=== PATIENT | male | born 1975 | race Two or more races ===

== ENCOUNTER 2024-05-22 15:11 | Emergency (ER) | payer MEDICAID, SELFPAY ==
[2024-05-22 15:22] VITALS: BP 134/93; PULSE 120; RESP 18; TEMP 37; O2SAT 97; BMI 19.3
--- NOTE | 2024-05-22 15:29 | EKG_ITS ---
[facility] Test Date: 2024-05-22 Pat Name: KALPANA FAIRCHILD Department: Room: - Gender: Male Clay Burner: : 1975 Requested By: Villa Romero (ARETHA) Order Number: [id number] [place] MD: Villa Romero (ARETHA) Measurements Intervals [place] Rate: 119 P: 35 MN: 160 QRS: -29 QRSD: 101 T: 64 QT: 437 QTc: 617 Interpretive Statements SINUS TACHYCARDIA LEFT ATRIAL ENLARGEMENT [-0.15mV P WAVE IN V1/V2] BORDERLINE LEFT AXIS DEVIATION [QRS AXIS < -20] LEFT VENTRICULAR HYPERTROPHY AND ST-T CHANGE [VOLTAGE CRITERIA PLUS ST/T ABNORMALITY] No previous ECG available for comparison /store/S0/[id number].pdf
--- NOTE | 2024-05-22 15:29 | XR_ITS ---
Examination: PA lateral chest 2 views Technique: Upright PA lateral chest 2 views Exam date and time: May 22, 2024 1539 hrs. Comparison April 06, 2024 Indications: Chest pain today Findings: Mild enlargement cardiac contour Pleural parenchymal disease right hemithorax including blunting of the right lateral costophrenic angle No pulmonary edema Intact osseous structures Impression: Improvement in right lung pneumonia Recommend [id number] decubitus film to exclude free flowing right pleural fluid
--- NOTE | 2024-05-22 15:29 | PD.EDRME ---
Rapid Medical Screening Exam RME Arrival date/time: 05/22/24 15:11 49-year-old male presents to the emergency department complaints of cough and shortness of breath patient reports recent chest tube placement Chief Complaint: Flu Like Symptoms Vital signs: Vital Signs Temperature 98.6 F 05/22/24 15:22 Pulse Rate 120 H 05/22/24 15:22 Respiratory Rate 18 05/22/24 15:22 Blood Pressure 134/93 H 05/22/24 15:22 Pulse Oximetry (%) 97 05/22/24 15:22 Oxygen Delivery Method Room Air 05/22/24 15:22
[2024-05-22 15:45] VITALS: PULSE 121
--- NOTE | 2024-05-22 15:45 | PC.NURSE ---
PT HERE WITH C/O COUGH FOR 3 DAYS. PT WITH RECENT SUEGERY AT [facility] ON LUNG. PT WEARING LIFE VEST FOR HEART PROBLEMS.
[2024-05-22 15:55] LABS: Basophils # (Auto) 0.2 Thou/mm3 (0.0-0.2); Basophils % (Auto) 1 % (0-2.5); Eosinophils # (Auto) 0.7 Thou/mm3 (0.0-0.5); Eosinophils % (Auto) 7 % (0-10); Hematocrit 37.1 % (41.0-53.0); Hemoglobin 12.3 g/dL (13.5-16.0); Immature Granulocytes % (Auto) 0 % (0-0); Immature Granulocytes Auto 0.04 Thou/mm3 (0.00-0.00); Lymphocytes % (Auto) 29 % (10-50); Mean Corpuscular HGB Conc 33.2 g/dl (31.0-37.0); Mean Corpuscular Hemoglobin 27.6 pg (25.0-35.0); Mean Corpuscular Volume 83 fL (80-100); Monocytes # (Auto) 1.1 Thou/mm3 (0.0-0.8); Monocytes % (Auto) 10 % (0-12); Neutrophils # (Auto) 5.7 Thou/mm3 (1.8-7.7); Neutrophils % (Auto) 53 % (37-80); Nucleated Red Blood Cell % 0 /100 WBC (0); Platelet Count 367 Thou/mm3 (140-440); RDW Standard Deviation 44.6 fL (35.1-43.9); Red Blood Count 4.46 Miln/mm3 (4.50-5.90); White Blood Count 10.7 Thou/mm3 (3.8-10.6)
--- NOTE | 2024-05-22 15:56 | EDNOTE_ITS ---
ED General RME/HPI General Chief complaint: Flu Like Symptoms Stated complaint: sx on lungs (04/22/24), cough x3 days Time Seen by Provider: 05/22/24 15:48 Arrival date/time: 05/22/24 15:11 Cough HPI ongoing for the past 2 weeks recently discharged from [facility]. Patient recently had a chest tube for empyema. The patient is known to us that is known to admitted to this hospital in March of this year for cholecystitis. The patient is on the LifeVest for decompensated heart failure secondary to polysubstance abuse. Patient denies fever shortness of breath just says he has cough with worsening cough at nighttime points to the base of his throat stating phlegm . Patient denies chest pain or shortness of breath. RME / HPI RME / HPI narrative: 05/22/24 15:11 49-year-old male presents to the emergency department complaints of cough and shortness of breath patient reports recent chest tube placement Related Data Previous Rx's ?Medication ?Instructions ?Recorded guaifenesin 100 mg/5 mL oral liquid 200 mg (10 mL) PO Q4H PRN cough 05/22/24 #500 mL levofloxacin 750 mg tablet 750 mg PO Q24H 7 days #7 tabs 05/22/24 Allergies Allergy/AdvReac Type Severity Reaction Status Date / Time No Known Allergies Allergy Verified 05/22/24 15:13 Review of Systems Review of Systems Narrative Review of Systems: GEN: No fever, no chills, no weight loss EYES: No discharge, no visual changes, no pain HEENT: No ear pain, no congestion, no sore throat PULM: No shortness of breath, + cough, no congestion CV: No chest pain, no dyspnea on exertion, no palpitations GI: No nausea, no vomiting, no diarrhea, no pain, no constipation : No frequency, no urgency, no dysuria MUSC/SKEL: No joint pain, no back pain SKIN: No rash PSYCH: No hallucinations, no depression HEME/LYMPH: No easy bleeding or bruising tendencies NEURO: No weakness, no headache Past Medical History Past Medical History NEUROLOGIC: Negative Neurological Disorders or Seizures CARDIAC: Negative Cardiac Disorders or Congestive Heart Failure RESPIRATORY: Positive Pulmonary Embolism; Negative Chronic Obstructive Pulmonary Disease (COPD) or Asthma GASTROINTESTINAL: Negative Gastrointestinal Disorders GENITOURINARY: Negative Genitourinary Disorders or Renal Disease MUSCULOSKELETAL: Negative Musculoskeletal Disorders ENDOCRINE: Negative Endocrine Disorders, Diabetes Mellitus Type 1 or Diabetes Mellitus Type 2 HEMATOLOGIC: Negative Blood Disorders or Sickle Cell Disease PSYCHO/SOCIAL: Positive Depression and Anxiety OTHER HISTORY: Positive Blood Transfusions; Negative Blood Transfusion Reaction, Anesthesia Reactions or Cancer Family History FAMILY HISTORY: Positive Family Cardiac Disorders (mother had heart attack); Negative Family Respiratory Disorders or Family Gastrointestinal Problems (father had GI problem unknown dx) Social History SMOKING STATUS: Former smoker ED Exam Narrative Physical exam: [General: Cough but not in any acute distress Head normocephalic HEENT: Within acceptable limits Neck is supple nontender Chest equal chest rise nontender to palpation Respiratory: Clear to auscultation no wheezes crackles or rubs CV: LifeVest encasing the chest wall, chest tube sites clean dry and intact. Rate rhythm is regular no murmurs rubs or clicks Abdomen is soft nontender no masses positive bowel sounds all 4 quadrants Back: No CVA tenderness no spinous process tenderness from cervical spine thoracic and lumbar spine Skin: Intact no petechiae rash induration ulceration or crepitus Extremities: Moving all extremity against resistance cap refill less than 2 seconds neurosensory intact Neuro: Awake alert oriented x3 Glascow coma 15 no focal deficits] Course Quality Measures none Orders Category Date Time Status Bedside Influenza A&B Antigen Test NOW Care 05/22/24 15:15 Completed EKG (ED ONLY) *Do not use* NOW Care 05/22/24 15:[address] chest wo con Stat Exams 05/22/24 15:59 Completed EKG (ED Only) Stat Exams 05/22/24 15:29 Draft XR chest 2V Stat Exams 05/22/24 15:29 Completed CBC Stat Lab 05/22/24 15:50 Completed Comprehensive Metabolic Panel Stat Lab 05/22/24 15:50 Completed Drug Screen,Urine Stat Lab 05/22/24 15:56 Ordered Troponin I Stat Lab 05/22/24 15:50 Completed Urinalysis Stat Lab 05/22/24 15:56 Ordered Levofloxacin/D5w 750Mg Ivpb [Levaquin Ivpb] Med 05/22/24 18:09 Active 750 mg in 150 ml IV X1 guaiFENesin/COD SYRUP [Robitussin Ac Syrup] Med 05/22/24 17:07 Discontinued 10 ml PO X1 ONE guaiFENesin/COD SYRUP [Robitussin Ac Syrup] Med 05/22/24 17:54 Discontinued 10 ml PO X1 ONE Vital Signs Vital signs: Vital Signs Temperature 98.6 F 05/22/24 15:22 Pulse Rate 120 H 05/22/24 15:22 Respiratory Rate 18 05/22/24 15:22 Blood Pressure 134/93 H 05/22/24 15:22 Pulse Oximetry (%) 97 05/22/24 15:22 Oxygen Delivery Method Room Air 05/22/24 15:22 [facility] Patient data External records reviewed:: [facility] previous records Clinical information provided by:: patient Social determinants that could affect healthcare access:: none Patient has the following chronic illnesses:: Polysubstance abuse decompensated cardiac output recent empyema with chest tube and drainage. How is presenting disease/condition affected by chronic disease/condition?: e xacerbated by Evaluation data The following diagnostics were reviewed and interpreted by me:: lab results and radiology exam(s) Lab and/or radiology exams considered but not ordered:: CBC shows leukocytosis of 10.7 H&H of 12.3 and 37.1 with platelets of 367 CMP shows sodium 137 potassium 3.7 heart of 101 CO2 of 26.9 BUN of 12 creatinine 0.8 glucose of 104 Unremarkable T. bili transaminases troponin is mildly elevated 0.172.1 reviewed with previous troponins this is not baseline for him. Given the patient's decompensated cardiac failure I suspect this is his baseline. Chest x-ray shows a mild pleural effusion CT of the chest shows the patient has pleural effusion that is not large enough for drainage, in addition to a mild pneumonia and cholelithiasis. Interpretation Summary: Patient has an early pneumonia with cough patient will be given cough medicine and started on antibiotics he is to follow-up with his primary care provider and/or return the emergency room for worsening symptoms. Medications Medications considered but not ordered:: None Medication administrations:: Medication Administration History Levofloxacin/Dextrose (Levaquin Ivpb) 750 mg in 150 mls @ 100 mls/hr IV X1 ONE Stop: 05/22/24 19:38 Discontinued Medications Guaifenesin/Codeine Phosphate (Guaifenesin/Cod Syrup 5 Ml Udc) 10 ml PO X1 ONE; Protocol Stop: 05/22/24 17:08 Last Admin: 05/22/24 17:59 Dose: 10 ml Documented By: [facility] Guaifenesin/Codeine Phosphate (Guaifenesin/Cod Syrup 5 Ml Udc) 10 ml PO X1 ONE; Protocol Stop: 05/22/24 17:55 None Consultations Consultation(s) initiated? (list below): No Diagnosis Differential Diagnosis ED Complaint MDM: Pneumonia pleural effusion empyema Most likely diagnosis given after review of the tests above:: Pneumonia pleural effusion Admission Indicated Admission indicated?: not indicated Explain why admission is indicated or not indicated:: Stable for discharge Admission Request Was there a request for admission?: No Disposition Plan Disposition Plan: Discharge Discharge Attestation Discharge Attestation: The patient and all family members were given an opportunity to ask questions and understood the discharge instructions. Discharge instructions specifically effects, indications for sooner follow up or return to the emergency department, and the expected course of current diagnosis. Patient condition: Stable Medical Decision Making Differential Diagnosis Differential Diagnosis: Pneumonia pleural effusion empyema Lab Data 05/22/24 15:50 05/22/24 15:50 Labs: Lab Results 05/22/24 Range/Units 15:50 WBC 10.7 H (3.8-10.6) Thou/mm3 RBC 4.46 L (4.50-5.90) Miln/mm3 Hgb 12.3 L (13.5-16.0) g/dL Hct 37.1 L (41.0-53.0) % MCV 83 (80-100) fL MCH 27.6 (25.0-35.0) pg MCHC 33.2 (31.0-37.0) g/dl RDW Std Deviation 44.6 H (35.1-43.9) fL Plt Count 367 D (140-440) Thou/mm3 Neut % (Auto) 53 (37-80) % Lymph % (Auto) 29 (10-50) % [place] % (Auto) 10 (0-12) % Eos % (Auto) 7 (0-10) % Baso % (Auto) 1 (0-2.5) % Neut # (Auto) 5.7 (1.8-7.7) Thou/mm3 Lymph # (Auto) 3.0 (1.0-4.8) Thou/mm3 [place] # (Auto) 1.1 H (0.0-0.8) Thou/mm3 Eos # (Auto) 0.7 H (0.0-0.5) Thou/mm3 Baso # (Auto) 0.2 (0.0-0.2) Thou/mm3 Immature Gran # (Auto) 0.04 H (0.00-0.00) Thou/mm3 Absolute Nucleated RBC 0.00 (0.00-0.00) Thou/mm3 Immature Gran % 0 (0-0) % Nucleated RBC % 0 (0) /100 WBC Sodium 137 (136-145) mMol/L Potassium 3.7 (3.4-5.1) mMol/L Chloride 101 (98-107) mMol/L Carbon Dioxide 26.9 (20.0-31.0) mMol/L Anion Gap 9 (7-16) BUN 12 (9-23) mg/dL Creatinine 0.8 (0.6-1.3) mg/dL Estim Creat Clear Calc 92.7 (>60) mL/min eGFR > 60 (60 - ) See Note BUN/Creatinine Ratio 15 (12-20) Ratio Glucose 104 (74-106) mg/dL Calculated Osmolality 273 L (275-295) Calcium 9.6 (8.3-10.6) mg/dL Corrected Calcium 9.6 (8.5-10.1) mg/dL Total Bilirubin 0.6 (0.3-1.2) mg/dL AST 16 (0-34) U/L ALT 19 (10-49) U/L Alkaline Phosphatase 88 (46-116) U/L Troponin I 0.172 H* (0.0-0.045) ng/mL Total Protein 8.3 H (5.7-8.2) gm/dL Albumin 4.6 (3.5-5.0) gm/dL Globulin 3.7 H (2.3-3.5) gm/dL Albumin/Globulin Ratio 1.2 (1.2-2.2) Discharge Plan Plan Patient Disposition: HOME (Self Care) Patient condition on transfer: Stable Prescriptions/Referrals Prescriptions/Med Rec: New guaifenesin 100 mg/5 mL liquid 200 mg PO Q4H PRN (Reason: cough) Qty: 500 0RF levofloxacin 750 mg tablet 750 mg PO Q24H 7 Days Qty: 7 0RF Referrals: No Primary/Family,Physician [Primary Care Provider] - In 1 week Problem List Clinical Impression: Pleural effusion, Elevated troponin, Pneumonia Patient/Caregiver Discharge Instructions Education Materials: ED Pneumonia (Adult), Pleural Effusion Print Language: Hebrew Stand Alone Forms: Shweta Award Info., Patient Portal Info Letter, Work/School Release PA/WILDLIFE CONTROL AGENT Supervising Physician PA/WILDLIFE CONTROL AGENT Supervising Physician: Geovani Morgan ENP
--- NOTE | 2024-05-22 15:59 | XR_ITS ---
Examination: CT chest, without intravenous contrast. Sagittal and coronal 2-D reconstructions. Exam date and time: May 22, 2024 1727 hrs. Comparison April 12, 2024 Marked improvement in the lung chew compared with April 12, 2024 Indications: Chest pain coughing status post surgery on the lungs April 22, 2024, recent chest tube removal for empyema CTDI:vol (mGy) 9.27 DLP: (mGycm) 357 Technique: Multiple 3.0 mm axial sections of the chest to been obtained. Bone and lung density settings are obtained. Sagittal and coronal 2-D reconstructions have been obtained. Low dose protocols were performed. One or more of the following dose reduction techniques were used; automated exposure control, adjustment of the mA and/or KV according to patient size, use of iterative reconstruction technique. Findings: No thoracic aortic aneurysm dilatation Pulmonary artery segments are not enlarged Significant calcification proximal left anterior descending coronary artery 4 mm pulmonary nodule right midlung Marked decrease in size of right empyema compared to the prior study, current thickness of the empyema or residual pleural fluid 10 mm Mild pneumonia right base medially Mild to moderate enlargement cardiac contour No visualized liver or splenic lesion Tiny gallstone image 178 No pancreatic mass Mild perinephric stranding Impression: Significant improvement compared with April 12, 2024 Marked decrease in size of right hemithorax empyema, current thickness or residual pleural fluid 10 mm, too small at this time for placement of a drainage catheter Mild pneumonia right base Cholelithiasis
[2024-05-22 16:16] LABS: Alanine Aminotransferase 19 U/L (10-49); Albumin, Serum 4.6 gm/dL (3.5-5.0); Albumin/Globulin Ratio 1.2 (1.2-2.2); Alkaline Phosphatase 88 U/L (46-116); Anion Gap 9 (7-16); Aspartate Amino Transferase 16 U/L (0-34); BUN/Creatinine Ratio 15 Ratio (12-20); Bilirubin,Total 0.6 mg/dL (0.3-1.2); Blood Urea Nitrogen 12 mg/dL (9-23); Calcium 9.6 mg/dL (8.3-10.6); Calcium (Corrected) 9.6 mg/dL (8.5-10.1); Carbon Dioxide 26.9 mMol/L (20.0-31.0); Chloride 101 mMol/L (98-107); Creatinine (Component) 0.8 mg/dL (0.6-1.3); Estimated Creatinine Clearance 92.7 mL/min (>60); Globulin 3.7 gm/dL (2.3-3.5); Glucose 104 mg/dL (74-106); Osmolality,Calculated 273 (275-295); Potassium 3.7 mMol/L (3.4-5.1); Sodium 137 mMol/L (136-145); Total Protein 8.3 gm/dL (5.7-8.2); eGFR > 60 See Note
[2024-05-22 16:32] LABS: Troponin I 0.172 ng/mL (0.0-0.045)
[2024-05-22 16:51] VITALS: BP 124/88; PULSE 124; RESP 18; TEMP 37; O2SAT 97
--- NOTE | 2024-05-22 17:06 | PC.NURSE ---
pt with c/o headache and cough. Geovani N/P informed
[2024-05-22] MEDS: guaiFENesin/COD SYRUP 5 ML UDC 10 ML PO (17:59)
[2024-05-22 18:07] VITALS: BP 132/66; PULSE 122; RESP 18; O2SAT 98
[2024-05-22] MEDS: LEVOFLOXACIN/D5W 750MG IVPB 750 MG/150 ML BAG 100 MG IV (18:35)
[2024-05-22 18:45] VITALS: TEMP 37.4
--- NOTE | 2024-05-22 20:15 | PC.NURSE ---
ARETHA Olivo aware hr is 120s and has been in the 120s since he came in to the ER, per Geovani ok to discharge.
[2024-05-22 20:20] VITALS: BP 123/83; PULSE 120; RESP 20; TEMP 37; O2SAT 99
== END 2024-05-22 20:20 | disposition home or self-care (01) ==
PROVIDERS: Nurse Practitioner Primary Care; Emergency Provider Emergency Medicine
DX: J90 Pleural effusion, not elsewhere classified (principal); J18.9 Pneumonia, unspecified organism; R79.89 Other specified abnormal findings of blood chemistry
CPT/HCPCS: 36415; 71046; 71250; 80053; 80307; 81001; 84484; 85025; 87400; 93005; 96365; 96366; 99284; J1956; A9270

== ENCOUNTER 2024-06-09 06:23 | Emergency (ER) | payer MEDICAID, SELFPAY ==
--- NOTE | 2024-06-09 06:44 | XR_ITS ---
Examination: PA lateral chest 2 views Technique: Upright PA lateral chest 2 views Exam date and time: June 09, 2024 0651 hrs. Comparison May 22, 2024 Indications: Coughing fever beginning 2 weeks ago Findings: Mild enlargement cardiac contour Prominent vascular congestion Fluid in the fissures on the lateral view Opacity fairly diffusely in the right lung consistent with pneumonia, also pneumonia left base obscuring detail left hemidiaphragm The osseous structures are intact Impression: Diffuse right lung and left base pneumonia Associated heart failure
--- NOTE | 2024-06-09 06:53 | EDNOTE_ITS ---
Upper Respiratory Inf. RME/HPI General Chief Complaint: Flu Like Symptoms Stated Complaint: COUGH, RECENT PROCEDURE ON LUNGS Time Seen by Provider: 06/09/24 06:38 Arrival date/time: 06/09/24 06:23 RME / HPI RME / HPI Narrative: This section includes all my notes and documentations, including HPI, PE, and ED course. Jony Gonzalez MD HPI: 49-year-old male here with about a week history of worsening cough, productive cough, purulent sputum, and dyspnea. No fever or chills. No other complaints. ROS: All negative except as documented in HPI. Physical Exam: General: Alert and oriented. Hacking cough noted. Eyes: Conjunctivae and lids clear. ENT: No nasal congestion. Pharynx normal. TM normal bilaterally. Neck: Supple. Heart: RRR. Lungs: No respiratory distress. Mildly decreased air movement with bilateral rhonchi. Skin: Warm and dry. Neuro: Alert and oriented X 3. I reviewed all diagnostic test results. My interpretation of the chest x-ray is infiltrates. COVID/influenza negative. At this point, diagnoses include pneumonia. Treatment here included prednisone and DuoNeb and two Tylenol #3 and Zithromax and Rocephin. Significant improvement noted. Recommended a trial of outpatient treatment. Based on my best medical judgment, made decision no further evaluation or treatment indicated at this time. Patient understands and agrees to the discharge instructions customized and printed, see below. Discharge instructions from Dr. Gonzalez: --No physical exertion for 3 days to help rest the lungs. No smoking or exposure to smoking or pets or dust or cold or humidity. --Zithromax and cefdinir to kill the germs causing the pneumonia. --Prednisone to help decrease the swelling in the airways. --Albuterol 2 puffs every 4-6 hours for 3 days as needed for cough or shortness of breath. --Tylenol with codeine for severe cough. --See a private doctor on 06/11/2024 for recheck. Ask for help until you are completely better. --Seek immediate medical care with worsening or with any concerns. Jony Gonzalez MD Related Data Previous Rx's ?Medication ?Instructions ?Recorded guaifenesin 100 mg/5 mL oral liquid 200 mg (10 mL) PO Q4H PRN cough 05/22/24 #500 mL acetaminophen 300 mg-codeine 30 mg 2 tab PO TID PRN pain #20 tabs 06/09/24 tablet albuterol sulfate 90 mcg/actuation 2 inh inhalation QID PRN shortness 06/09/24 aerosol inhaler of breath or wheezing #8.5 grams azithromycin 500 mg tablet 500 mg PO QDAY 3 days #3 tabs 06/09/24 (Zithromax TRI-NAVEED) cefdinir 300 mg capsule 300 mg PO BID #14 caps 06/09/24 prednisone 20 mg tablet 40 mg PO DAILY 3 days #6 tabs 06/09/24 Allergies Allergy/AdvReac Type Severity Reaction Status Date / Time No Known Allergies Allergy Verified 05/22/24 15:13 Course Quality Measures none Orders Category Date Time Status Bedside COVID-19 Antigen Test NOW Care 06/09/24 06:45 Active Bedside Influenza A&B Antigen Test NOW Care 06/09/24 06:45 Active XR chest 2V Stat Exams 06/09/24 06:44 Completed ACETAMINOPHEN w/COD 300-30 [Tylenol w/Cod #3] Med 06/09/24 06:44 Discontinued 2 tab PO X1 ONE Albuterol/Ipratr Rt Mervat [Duoneb Rt Mervat] Med 06/09/24 06:44 Discontinued 3 ml INH X1 ONE Azithromycin Po [Zithromax PO] Med 06/09/24 07:33 Discontinued 500 mg PO X1 ONE cefTRIAXone [Rocephin] 1,000 mg Med 06/09/24 07:33 Discontinued Lidocaine 1% 20 ml [Xylocaine 1% 20 ML] 2.1 ml IM X1 predniSONE Med 06/09/24 06:44 Discontinued 60 mg PO X1 ONE Vital Signs Vital signs: Vital Signs Temperature 98.7 F 06/09/24 07:03 Pulse Rate 107 H 06/09/24 07:03 Respiratory Rate 19 06/09/24 07:03 Blood Pressure 118/78 06/09/24 07:03 Pulse Oximetry (%) 96 06/09/24 07:03 Oxygen Delivery Method Room Air 06/09/24 07:03 Upper Respiratory Infection Patient data External records reviewed:: [facility] previous records Clinical information provided by:: patient Social determinants that could affect healthcare access:: none Patient has the following chronic illnesses:: See chart How is presenting disease/condition affected by chronic disease/condition?: exacerbated by Evaluation data The following diagnostics were reviewed and interpreted by me:: lab results and radiology exam(s) Lab and/or radiology exams considered but not ordered:: None Interpretation Summary: Pneumonia Medications / Prescriptions Medications or Prescriptions considered but not ordered:: None Medication administrations:: Medication Administration History Discontinued Medications Acetaminophen/Codeine Phosphate (Acetaminophen W/Cod 300-30 Tablet) 2 tab PO X1 ONE Stop: 06/09/24 06:45 Last Admin: 06/09/24 07:10 Dose: 2 tab Documented By: HELEN Albuterol/Ipratropium (Albuterol/Ipratropium (Duoneb) Rt Mervat 3 Ml Nebu) 3 ml INH X1 ONE Stop: 06/09/24 06:45 Last Admin: 06/09/24 07:04 Dose: 3 ml Documented By: TAYLOR Azithromycin (Azithromycin 250 Mg Tablet) 500 mg PO X1 ONE Stop: 06/09/24 07:34 Ceftriaxone Sodium 1,000 mg/ (Lidocaine HCl 2.1 ml) 0 mg IM X1 ONE Stop: 06/09/24 07:34 Prednisone (Prednisone 20 Mg Tablet) 60 mg PO X1 ONE Stop: 06/09/24 06:45 Last Admin: 06/09/24 07:11 Dose: 60 mg Documented By: HELEN Prednisone and DuoNeb and two Tylenol #3 and Rocephin and Zithromax Consultations Consultation(s) initiated? (list below): No Diagnosis Upper Respiratory Differential Diagnosis: upper respiratory infection, viral infection, bronchitis, influenza and other (Pneumonia, COVID) Most likely diagnosis given after review of the tests above:: Pneumonia Admission Indicated Admission indicated?: not indicated Explain why admission is indicated or not indicated:: Admission criteria not met Admission Request Was there a request for admission?: No Disposition Plan Disposition Plan: Discharge Discharge Attestation Discharge Attestation: The patient and all family members were given an opportunity to ask questions and understood the discharge instructions. Discharge instructions specifically effects, indications for sooner follow up or return to the emergency department, and the expected course of current diagnosis. Patient condition: Stable Discharge Plan Plan Patient Disposition: HOME (Self Care) Prescriptions/Referrals Prescriptions/Med Rec: New prednisone 20 mg tablet 40 mg PO DAILY 3 Days Qty: 6 0RF Taper: Prednisone Taper 20 mg DAILY for 2 Days and 0 Hour 10 mg DAILY for 2 Days and 0 Hour 5 mg DAILY for 7 Days and 0 Hour acetaminophen-codeine 300-30 mg tablet 2 tab PO TID MDD 6 PRN (Reason: pain) Qty: 20 0RF albuterol sulfate 90 mcg/actuation HFA aerosol inhaler 2 inh inhalation QID PRN (Reason: shortness of breath or wheezing) Qty: 8.5 0RF cefdinir 300 mg capsule 300 mg PO BID Qty: 14 0RF azithromycin [Zithromax TRI-NAVEED] 500 mg tablet 500 mg PO QDAY 3 Days Qty: 3 0RF No Action guaifenesin 100 mg/5 mL liquid 200 mg PO Q4H PRN (Reason: cough) Qty: 500 0RF Problem List Clinical Impression: Pneumonia Patient/Caregiver Discharge Instructions Discharge Activity: activity as tolerated Education Materials: ED Pneumonia (Adult) Additional Instructions: Discharge instructions from Dr. Gonzalez: --No physical exertion for 3 days to help rest the lungs. No smoking or exposure to smoking or pets or dust or cold or humidity. --Zithromax and cefdinir to kill the germs causing the pneumonia. --Prednisone to help decrease the swelling in the airways. --Albuterol 2 puffs every 4-6 hours for 3 days as needed for cough or shortness of breath. --Tylenol with codeine for severe cough. --See a private doctor on 06/11/2024 for recheck. Ask for help until you are completely better. --Seek immediate medical care with worsening or with any concerns. Instrucciones de lico del Dr. Gonzalez: --No hacer arjun?n esfuerzo f?sico mingo 3 d?as para ayudar a que los pulmones descansen. --No fumar ni exponerse al humo del tabaco, a las mascotas, al polvo, al fr?o o a la humedad. ---Zithromax y cefdinir para matar los g?rmenes que causan la neumon?a. ---Prednisona para ayudar a disminuir la hinchaz?n de las v?as respiratorias. ---Albuterol 2 inhalaciones cada 4-6 horas mingo 3 d?as seg?n sea necesario para la tos o la falta de aire. ---Tylenol con code?na para la tos intensa. ---Consultar a un m?dico privado el 11/06/2024 para que le darya un nuevo control. ---Solicitar ayuda hasta que se mejore por completo. ---Buscar atenci?n m?dica inmediata si la enfermedad empeora o si tiene alguna inquietud. Print Language: Armenian Stand Alone Forms: Shweta Award Info., Patient Portal Info Letter
[2024-06-09 07:03] VITALS: BP 118/78; PULSE 107; RESP 19; TEMP 37.1; O2SAT 96
[2024-06-09] MEDS: ALBUTEROL/IPRATROPIUM (Duoneb) RT SOL 3 ML NEBU INH (07:04)
[2024-06-09 07:06] VITALS: PULSE 117; RESP 18; O2SAT 98
[2024-06-09] MEDS: ACETAMINOPHEN w/COD 300-30 TABLET 2 TAB PO (07:10)
[2024-06-09] MEDS: predniSONE 20 MG TABLET 60 MG PO (07:11)
[2024-06-09] MEDS: AZITHROMYCIN 250 MG TABLET 500 MG PO (08:02)
[2024-06-09] MEDS: cefTRIAXone 1,000 MG, LIDOCAINE 1% 20 ML 2.1 ML IM (08:04)
== END 2024-06-09 08:09 | disposition home or self-care (01) ==
LOC: SERX 08:06
PROVIDERS: Emergency Provider Emergency Medicine
DX: J18.9 Pneumonia, unspecified organism (principal)
CPT/HCPCS: 71046; 87400; 87811; 94640; 96372; 99283; A9270; J0696; J3490; J7512

== ENCOUNTER 2024-06-16 14:37 | Emergency (ER) | payer MEDICAID, SELFPAY ==
[2024-06-16 14:38] VITALS: BMI 20.8
[2024-06-16 15:01] VITALS: BP 131/84; PULSE 111; RESP 18; TEMP 36.8; O2SAT 97
--- NOTE | 2024-06-16 15:13 | XR_ITS ---
Examination: PA lateral chest 2 views Technique: Upright PA lateral chest 2 views Exam date and time: June 16, 2024 1519 hrs. Indications: Coughing fever chest pain today. Findings: Pneumonia in the right middle lobe and right base Moderate enlargement left ventricle No pulmonary edema The osseous structures are intact Impression: Significant pneumonia right base and right middle lobe
--- NOTE | 2024-06-16 15:13 | EKG_ITS ---
[facility] Test Date: 2024-06-16 Pat Name: KALPANA FAIRCHILD Department: Room: - Gender: Male Database Developer: : 1975 Requested By: Villa Romero (ARETHA) Order Number: [id number] Reading MD: Villa Romero (STATION WORKER) Measurements Intervals [place] Rate: 117 P: 36 CO: 174 QRS: -44 QRSD: 98 T: 79 QT: 362 QTc: 507 Interpretive Statements SINUS TACHYCARDIA LEFT ATRIAL ENLARGEMENT [-0.15mV P WAVE IN V1/V2] MARKED LEFT AXIS DEVIATION [QRS AXIS < -30] POSSIBLE LEFT VENTRICULAR HYPERTROPHY [VOLTAGE CRITERIA PLUS LAE OR QRS WIDENING] POSSIBLE ANTERIOR MYOCARDIAL INFARCTION , OF INDETERMINATE AGE [30 ms Q WAVE IN V3/V4, OR R < 0.2 mV IN V4] Compared to ECG 05/22/2024 15:42:00 Myocardial infarct finding now present ST (T wave) deviation no longer present /store/S0/[id number].pdf
--- NOTE | 2024-06-16 15:34 | PD.EDRME ---
Rapid Medical Screening Exam E Arrival date/time: 06/16/24 14:37 49-year-old male currently on antibiotics for pneumonia presents to the emergency department complains of shortness of breath Chief Complaint: Shortness of Breath/Dyspnea Time Seen by Provider: 06/16/24 15:05 Vital signs: Vital Signs Temperature 98.3 F 06/16/24 15:01 Pulse Rate 111 H 06/16/24 15:01 Respiratory Rate 18 06/16/24 15:01 Blood Pressure 131/84 H 06/16/24 15:01 Pulse Oximetry (%) 97 06/16/24 15:01 Oxygen Delivery Method Room Air 06/16/24 15:01
[2024-06-16 15:38] LABS: Lactate (Lactic Acid) 1.3 mMol/L (0.4-2.0)
[2024-06-16 15:40] LABS: Basophils # (Auto) 0.1 Thou/mm3 (0.0-0.2); Basophils % (Auto) 1 % (0-2.5); Eosinophils # (Auto) 0.3 Thou/mm3 (0.0-0.5); Eosinophils % (Auto) 3 % (0-10); Hematocrit 39.9 % (41.0-53.0); Immature Granulocytes % (Auto) 0 % (0-0); Immature Granulocytes Auto 0.03 Thou/mm3 (0.00-0.00); Lymphocytes # (Auto) 3.4 Thou/mm3 (1.0-4.8); Lymphocytes % (Auto) 33 % (10-50); Mean Corpuscular HGB Conc 32.6 g/dl (31.0-37.0); Mean Corpuscular Hemoglobin 27.1 pg (25.0-35.0); Mean Corpuscular Volume 83 fL (80-100); Monocytes # (Auto) 0.8 Thou/mm3 (0.0-0.8); Monocytes % (Auto) 8 % (0-12); Neutrophils # (Auto) 5.9 Thou/mm3 (1.8-7.7); Neutrophils % (Auto) 56 % (37-80); Nucleated Red Blood Cell % 0 /100 WBC (0); Platelet Count 350 Thou/mm3 (140-440); RDW Standard Deviation 45.2 fL (35.1-43.9); White Blood Count 10.5 Thou/mm3 (3.8-10.6)
[2024-06-16 16:04] LABS: Collection Type, Urine Clean Catch; Squamous Epithelial Cell,Urine 0 /hpf (0-5)
[2024-06-16 16:05] LABS: Alanine Aminotransferase 91 U/L (10-49); Albumin, Serum 4.2 gm/dL (3.5-5.0); Albumin/Globulin Ratio 1.3 (1.2-2.2); Alkaline Phosphatase 83 U/L (46-116); Anion Gap 9 (7-16); Aspartate Amino Transferase 59 U/L (0-34); BUN/Creatinine Ratio 17 Ratio (12-20); Bilirubin,Total 0.9 mg/dL (0.3-1.2); Blood Urea Nitrogen 12 mg/dL (9-23); Calcium 9.4 mg/dL (8.3-10.6); Calcium (Corrected) 9.4 mg/dL (8.5-10.1); Carbon Dioxide 25.2 mMol/L (20.0-31.0); Chloride 102 mMol/L (98-107); Creatinine (Component) 0.7 mg/dL (0.6-1.3); Estimated Creatinine Clearance 104.5 mL/min (>60); Globulin 3.2 gm/dL (2.3-3.5); Glucose 126 mg/dL (74-106); Osmolality,Calculated 273 (275-295); Potassium 4.4 mMol/L (3.4-5.1); Procalcitonin 0.07 ng/ml (0.0-0.49); Sodium 136 mMol/L (136-145); Total Protein 7.4 gm/dL (5.7-8.2); eGFR > 60 See Note
[2024-06-16 16:07] LABS: Troponin I 0.176 ng/mL (0.0-0.045)
[2024-06-16 16:24] LABS: Bilirubin,Urine Negative (Negative); Blood,Urine Negative (Negative); Clarity,Urine Clear (Clear/Hazy); Color,Urine Lt-Yellow (Lt Yel-Yel); Glucose, Urine Negative (Negative); Ketones,Urine Negative (Negative); Leukocyte Esterase,Urine Negative (Negative); Nitrite,Urine Negative (Negative); PH,Urine 6.5 (5.0-7.0); Protein,Urine Trace (Neg - Trace); RBC,Urine 1 /hpf (0-3); Specific Gravity,Urine 1.014 (1.001-1.035); Urobilinogen,Urine Negative mg/dL (0.0-1.0); WBC,Urine 1 /hpf (0-5)
[2024-06-16 16:31] LABS: Amphetamine/Methamp Scrn,U Negative (Negative); Barbiturate Screen,Urine Negative (Negative); Benzodiazepines Screen,Urine Negative (Negative); Benzoylecgonine Screen, Ur Negative (Negative); Fentanyl Screen,Urine Negative (Negative); Opiate Screen,Urine Positive (Negative); THC Screen,Urine Negative (Negative)
[2024-06-16 16:50] LABS: B-Type Natriuretic Peptide 1808 pg/mL (0-100)
--- NOTE | 2024-06-16 17:53 | XR_ITS ---
Examination: CT chest, without intravenous contrast. Sagittal and coronal 2-D reconstructions. Exam date and time: May 2024 1832 hrs. Comparison 12/21/2023 Indications: Shortness of breath coughing beginning one week ago, history right empyema CTDI:vol (mGy) 9.18 DLP: (mGycm) 301 Technique: Multiple 3.0 mm axial sections of the chest to been obtained. Bone and lung density settings are obtained. Sagittal and coronal 2-D reconstructions have been obtained. Low dose protocols were performed. One or more of the following dose reduction techniques were used; automated exposure control, adjustment of the mA and/or KV according to patient size, use of iterative reconstruction technique. Findings: Nonspecific pretracheal high periaortic aortopulmonary window lymph nodes No thoracic aortic aneurysm dilatation Pulmonary artery segments are not enlarged Heavy calcification left anterior descending coronary artery Trace pericardial thickening Mild to moderate enlargement left ventricle left atrium, significant vascular congestion Pneumonia right base Patient's right empyema has not returned Minimal fluid subcapsular to the liver Liver is irregular in contour Gallbladder wall appears thickened Impression: Mild heart failure Right base pneumonia The patient's right empyema has not returned Primary hepatocellular disease Recommend hepatobiliary sonography follow-up to exclude cholecystitis
--- NOTE | 2024-06-16 17:55 | PD.EDSOB ---
ED SOB =RME/HPI General Chief Complaint: Shortness of Breath/Dyspnea Stated Complaint: SOB AND COUGH Time Seen by Provider: 06/16/24 15:05 Arrival date/time: 06/16/24 14:37 RME / HPI RME / HPI Narrative: 49-year-old male patient with significant history of congestive heart failure, currently not on medications, on life vest, history of pleural effusion, history of methamphetamine abuse, came in with family for evaluation regarding worsening shortness of breath. According to the patient's been battling with pneumonia for the last 1 month, already finished antibiotic given by PCP, and was seen here also last week and was diagnosed with pneumonia. Patient was sent home on antibiotic for 3 days. Today patient noticed worsening shortness of breath, and pain to the right chest. Patient also complained of swelling to the leg. Currently patient is not taking any water pill, I stopped taking Lasix or more than a month now. Patient is denying any fever. Denies any other complaints no medications taken prior to arrival. Related Data Previous Rx's ?Medication ?Instructions ?Recorded guaifenesin 100 mg/5 mL oral liquid 200 mg (10 mL) PO Q4H PRN cough 05/22/24 #500 mL acetaminophen 300 mg-codeine 30 mg 2 tab PO TID PRN pain #20 tabs 06/09/24 tablet albuterol sulfate 90 mcg/actuation 2 inh inhalation QID PRN shortness 06/09/24 aerosol inhaler of breath or wheezing #8.5 grams cefdinir 300 mg capsule 300 mg PO BID #14 caps 06/09/24 furosemide 20 mg tablet (Lasix) 20 mg PO QDAY #14 tabs 06/16/24 oseltamivir 75 mg capsule (Tamiflu) 75 mg PO BID 5 days #10 caps 06/16/24 Allergies Allergy/AdvReac Type Severity Reaction Status Date / Time No Known Allergies Allergy Verified 06/16/24 14:38 Review of Systems Review of Systems Narrative Review of Systems: Review of system reviewed and within normal limits except mentioned in HPI ED Exam Narrative Physical exam: VITAL SIGNS: Reviewed. GENERAL APPEARANCE: Alert and interactive, follows commands, no acute distress, HEAD AND FACE: Non-traumatic. ENT: PERRL, pink conjunctivitis, eyelid no trauma, Mucous membrane moist. NECK: Supple, nontender, no nuchal rigidity. CHEST: No tenderness, no crepitus, no paradoxical movement, no retractions. LUNGS: Symmetric, bibasal rales, no wheezing, no ronchi, no stridor, decreased breath sounds bilaterally. On a LifeVest HEART: Regular rate, regular rhythm, no murmur, no gallops. ABDOMEN: Soft, positive bowel sounds, nondistended, no guarding, nontender, no rebound, no masses, RECTAL: Deferred. GENITAL: Deferred. NEUROLOGICAL: Gross motor function intact sensory function intact, Appropriate for age. MUSCULOSKELETAL: low back nontender, full range of motion. EXTREMITIES: Bilateral lower leg edema +2, full range of motion. SKIN: Color pink, dry, no rash, no lacerations, no abrasions, no contusions. LYMPHATICS: Deferred. Course Quality Measures none Orders Category Date Time Status Bedside COVID-19 Antigen Test NOW Care 06/16/24 15:13 Active Bedside Influenza A&B Antigen Test NOW Care 06/16/24 15:13 Completed EKG (ED ONLY) *Do not use* NOW Care 06/16/24 15:14 Completed Insert IV NOW Care 06/16/24 17:[address] chest wo con Stat Exams 06/16/24 17:53 Completed EKG (ED Only) Stat Exams 06/16/24 15:13 Draft XR chest 2V Stat Exams 06/16/24 15:13 Completed BNP [B-Type Natriuretic Peptide] Stat Lab 06/16/24 15:28 Completed Blood Culture (Lab) Stat Lab 06/16/24 15:28 Received CBC Stat Lab 06/16/24 15:28 Completed Comprehensive Metabolic Panel Stat Lab 06/16/24 15:28 Completed Drug Screen,Urine Stat Lab 06/16/24 15:46 Completed Lactate (Lactic Acid) Stat Lab 06/16/24 15:28 Completed Procalcitonin Stat Lab 06/16/24 15:28 Completed Troponin I Stat Lab 06/16/24 15:28 Completed Troponin I Stat Lab 06/16/24 18:03 Completed Urinalysis Stat Lab 06/16/24 15:46 Completed Furosemide Inj [Lasix Inj] Med 06/16/24 17:53 Discontinued 40 mg IVP X1 ONE Oseltamivir [Tamiflu] Med 06/16/24 17:53 Discontinued 75 mg PO X1 ONE Vital Signs Vital signs: Vital Signs Temperature 98.3 F 06/16/24 15:01 Pulse Rate 111 H 06/16/24 15:01 Respiratory Rate 18 06/16/24 15:01 Blood Pressure 131/84 H 06/16/24 15:01 Pulse Oximetry (%) 97 06/16/24 15:01 Oxygen Delivery Method Room Air 06/16/24 15:01 Shortness of Breath / Dyspnea [facility] Narrative [facility] Narrative:: 49-year-old male patient with significant history of congestive heart failure, currently not on medications, on life vest, history of pleural effusion, history of methamphetamine abuse, came in with family for evaluation regarding worsening shortness of breath. According to the patient's been battling with pneumonia for the last 1 month, already finished antibiotic given by PCP, and was seen here also last week and was diagnosed with pneumonia. Patient was sent home on antibiotic for 3 days. Today patient noticed worsening shortness of breath, and pain to the right chest. Patient also complained of swelling to the leg. Currently patient is not taking any water pill, I stopped taking Lasix or more than a month now. Patient is denying any fever. Denies any other complaints no medications taken prior to arrival. Laboratory workup is significant for troponin 0.172 which is slightly lower from the previous 1 repeat troponin also remained the same. 3 hours ago. Patient's BNP was noted to be 1808. Chest x-ray showed Significant pneumonia right base and right middle lobe CT scan of the chest showed Mild heart failure Right base pneumonia The patient's right empyema has not returned Primary hepatocellular disease Recommend hepatobiliary sonography follow-up to exclude cholecystitis Patient tested positive for influenza. Patient received Lasix and Tamiflu in the emergency room. Case discussed with hospitalist, Dr. Salgado, who examined the patient in the emergency room, and told me that patient is okay to be discharged home and follow-up closely with thoracic surgeon outpatient. Patient data External records reviewed:: None Clinical information provided by:: patient Social determinants that could affect healthcare access:: none Patient has the following chronic illnesses:: History of congestive heart failure, history of recent pneumonia How is presenting disease/condition affected by chronic disease/condition?: exacerbated by Evaluation data The following diagnostics were reviewed and interpreted by me:: lab results, radiology exam(s) and EKG tracing(s) Lab and/or radiology exams considered but not ordered:: None Interpretation Summary: See above in MDM Medications / Prescriptions Medications or Prescriptions considered but not ordered:: None Medication administrations:: Medication Administration History Discontinued Medications Furosemide (Furosemide Inj 10 Mg/Ml 4ml Vial) 40 mg IVP X1 ONE Stop: 06/16/24 17:54 Last Admin: 06/16/24 18:23 Dose: 40 mg Documented By: GIOVANNY Oseltamivir Phosphate (Oseltamivir 75 Mg Capsule) 75 mg PO X1 ONE Stop: 06/16/24 17:54 Last Admin: 06/16/24 18:23 Dose: 75 mg Documented By: GIOVANNY Tamiflu and Lasix Consultations Consultation(s) initiated? (list below): No Diagnosis Shortness of Breath Differential Diagnosis: acute exacerbation of chronic obstructive airways disease, congestive heart failure and community acquired pneumonia Most likely diagnosis given after review of the tests above:: Influenza, history of congestive heart failure Admission Indicated Admission indicated?: not indicated Explain why admission is indicated or not indicated:: Stable Admission Request Was there a request for admission?: No Disposition Plan Disposition Plan: Discharge Discharge Attestation Discharge Attestation: The patient and all family members were given an opportunity to ask questions and understood the discharge instructions. Discharge instructions specifically effects, indications for sooner follow up or return to the emergency department, and the expected course of current diagnosis. Patient condition: Stable Discharge Plan Plan Patient Disposition: HOME (Self Care) Disposition Comment: stable Prescriptions/Referrals Prescriptions/Med Rec: New oseltamivir [Tamiflu] 75 mg capsule 75 mg PO BID 5 Days Qty: 10 0RF furosemide [Lasix] 20 mg tablet 20 mg PO QDAY Qty: 14 0RF No Action guaifenesin 100 mg/5 mL liquid 200 mg PO Q4H PRN (Reason: cough) Qty: 500 0RF acetaminophen-codeine 300-30 mg tablet 2 tab PO TID MDD 6 PRN (Reason: pain) Qty: 20 0RF albuterol sulfate 90 mcg/actuation HFA aerosol inhaler 2 inh inhalation QID PRN (Reason: shortness of breath or wheezing) Qty: 8.5 0RF cefdinir 300 mg capsule 300 mg PO BID Qty: 14 0RF Referrals: Justin Millan MD [Primary Care Provider] - In 1 week Problem List Clinical Impression: Influenza A, Congestive heart failure Patient/Caregiver Discharge Instructions Discharge Activity: activity as tolerated Education Materials: ED Influenza (Adult) Additional Instructions: Thank you for the opportunity for serving you today. You are stable for discharged . You are advised to: Follow-up with your PCP in 1 to 2 days and ask for referral to your thoracic surgeon Return to ED for worsening of symptoms Take medication as prescribed Print Language: Kinyarwanda Stand Alone Forms: Shweta Award Info., Patient Portal Info Letter
[2024-06-16 18:17] VITALS: BP 139/102; PULSE 117; RESP 18; TEMP 36.8; O2SAT 96
[2024-06-16 18:23] VITALS: BP 139/102; PULSE 116
[2024-06-16] MEDS: OSELTAMIVIR 75 MG CAPSULE PO (18:23)
[2024-06-16] MEDS: FUROSEMIDE INJ 10 MG/ML 4ML VIAL 40 MG IVP (18:23)
[2024-06-16 18:38] LABS: Troponin I 0.172 ng/mL (0.0-0.045)
[2024-06-16 20:00] VITALS: BP 130/102; PULSE 118; RESP 18; TEMP 36.7; O2SAT 99
== END 2024-06-16 20:46 | disposition home or self-care (01) ==
PROVIDERS: Nurse Practitioner Family; Nurse Practitioner Primary Care; Emergency Provider Emergency Medicine; PCP Family Medicine
DX: J10.1 Influenza due to other identified influenza virus with other respiratory manifestations (principal); I50.9 Heart failure, unspecified
CPT/HCPCS: 36415; 71046; 71250; 80053; 80307; 81001; 83605; 83880; 84145; 84484; 85025; 87040; 87400; 87811; 93005; 96374; 99284; J1940; A9270

== ENCOUNTER 2025-01-17 14:26 | Inpatient (IN) | payer MEDICAID, SELFPAY ==
[2025-01-17 14:39] VITALS: BP 121/82; PULSE 120; RESP 26; TEMP 36.5; O2SAT 100
--- NOTE | 2025-01-17 14:46 | EKG_ITS ---
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: : 1975 Requested By: Villa Romero (ARETHA) Order Number: [id number] Reading MD: Villa Romero (LEGAL RECRUITER) Measurements Intervals [place] Rate: 125 P: 38 GA: 170 QRS: -48 QRSD: 95 T: 60 QT: 387 QTc: 559 Interpretive Statements SINUS TACHYCARDIA PATTERN CONSISTENT WITH PULMONARY DISEASE LEFT ANTERIOR FASCICULAR BLOCK [QRS AXIS <= -45, QR IN I, RS IN II] LEFT VENTRICULAR HYPERTROPHY AND ST-T CHANGE [VOLTAGE CRITERIA PLUS ST/T ABNORMALITY] Compared to ECG 06/16/2024 15:37:46 Left anterior fascicular block now present ST (T wave) deviation now present Atrial abnormality no longer present Left-axis deviation no longer present Myocardial infarct finding no longer present /store/S0/[id number].pdf
--- NOTE | 2025-01-17 14:51 | XR_ITS ---
Examination: AP lateral chest 2 views TECHNIQUE: Sitting portable AP lateral chest 2 views INDICATIONS: Chest pain shortness of breath today. FINDINGS: Moderate enlargement left ventricle Prominent vascular congestion. Early septal pulmonary edema and fluid in the fissures on the lateral view IMPRESSION: Early heart failure
--- NOTE | 2025-01-17 14:51 | XR_ITS ---
Examination: CT abdomen and pelvis without contrast. Coronal 3-D reconstructions. Sagittal 2-D reconstructions. Date and time of exam:January 17, 2025, 1734 hours Comparison April 09, 2024. INDICATIONS: Generalized abdominal pain and bloating today CTDI: vol (mGy): 5.97 DLP: (mGycm): 349 Technique: Axial images of the abdomen have been obtained, 3 mm slice thickness Intravenous contrast material has not been administered. Low dose protocols were performed. One or more of the following dose reduction techniques were used; automated exposure control, adjustment of the mA and/or KV according to patient size, use of iterative reconstruction technique. Findings: Moderate enlargement cardiac contour with significant vascular congestion and small bilateral pleural effusions Cirrhosis, liver nodular in contour with mild to moderate ascites Gallbladder wall is thickened but this may be secondary to the patient's ascites No pancreatic mass No hydronephrosis Aorta normal size No bowel obstruction Normal-appearing appendix No diverticulitis Urinary bladder wall shows thickening to 7 mm Fluid in a left inguinal hernia Advanced disc narrowing at the lower 3 lumbar levels IMPRESSION: Moderate enlargement cardiac contour with mild heart failure pattern Cirrhosis [id number] ascites Gallbladder wall is thickened but this may be secondary to the patient's ascites, recommend HIDA scan follow-up as clinically warranted Cystitis pattern
--- NOTE | 2025-01-17 14:52 | PD.EDRME ---
Rapid Medical Screening Exam RME Arrival date/time: 01/17/25 14:26 49-year-old male presents to the emergency department for complaints of abdominal pain Chief Complaint: Abdominal Pain Time Seen by Provider: 01/17/25 14:58 Vital signs: Vital Signs Temperature 97.7 F 01/17/25 14:39 Pulse Rate 120 H 01/17/25 14:39 Respiratory Rate 26 H 01/17/25 14:39 Blood Pressure 121/82 01/17/25 14:39 Pulse Oximetry (%) 100 01/17/25 14:39 Oxygen Delivery Method Room Air 01/17/25 14:39
[2025-01-17 15:17] LABS: Basophils # (Auto) 0.1 Thou/mm3 (0.0-0.2); Basophils % (Auto) 1 % (0-2.5); Eosinophils # (Auto) 0.3 Thou/mm3 (0.0-0.5); Eosinophils % (Auto) 2 % (0-10); Hematocrit 47.9 % (41.0-53.0); Hemoglobin 15.9 g/dL (13.5-16.0); Immature Granulocytes Auto 0.02 Thou/mm3 (0.00-0.00); Lymphocytes # (Auto) 4.4 Thou/mm3 (1.0-4.8); Lymphocytes % (Auto) 38 % (10-50); Mean Corpuscular HGB Conc 33.2 g/dl (31.0-37.0); Mean Corpuscular Hemoglobin 30.2 pg (25.0-35.0); Mean Corpuscular Volume 91 fL (80-100); Monocytes # (Auto) 1.3 Thou/mm3 (0.0-0.8); Monocytes % (Auto) 11 % (0-12); Neutrophils # (Auto) 5.4 Thou/mm3 (1.8-7.7); Neutrophils % (Auto) 47 % (37-80); Nucleated Red Blood Cell # 0.00 Thou/mm3 (0.00-0.00); Nucleated Red Blood Cell % 0 /100 WBC (0); Platelet Count 315 Thou/mm3 (140-440); RDW Standard Deviation 53.7 fL (35.1-43.9); Red Blood Count 5.26 Miln/mm3 (4.50-5.90); White Blood Count 11.5 Thou/mm3 (3.8-10.6)
[2025-01-17 15:29] LABS: INR 1.6 (0.9-1.3); Partial Thromboplastin Time 26.5 Seconds (22.0-36.0); Prothrombin Time 16.7 Seconds (9.0-12.2)
[2025-01-17 15:32] LABS: B-Type Natriuretic Peptide 2913 pg/mL (0-100)
[2025-01-17 15:36] LABS: Alanine Aminotransferase 457 U/L (10-49); Albumin, Serum 3.7 gm/dL (3.5-5.0); Albumin/Globulin Ratio 1.3 (1.2-2.2); Alcohol, Blood Medical < 3.0 mg/dL (0-10.0); Alkaline Phosphatase 95 U/L (46-116); Anion Gap 12 (7-16); Aspartate Amino Transferase 464 U/L (0-34); BUN/Creatinine Ratio 13 Ratio (12-20); Bilirubin,Total 2.9 mg/dL (0.3-1.2); Blood Urea Nitrogen 15 mg/dL (9-23); Calcium 9.1 mg/dL (8.3-10.6); Calcium (Corrected) 9.3 mg/dL (8.5-10.1); Carbon Dioxide 22.5 mMol/L (20.0-31.0); Chloride 102 mMol/L (98-107); Creatinine (Component) 1.2 mg/dL (0.6-1.3); Estimated Creatinine Clearance 62.4 mL/min (>60); Globulin 2.8 gm/dL (2.3-3.5); Glucose 139 mg/dL (74-106); Lipase 31 U/L (12-53); Magnesium 1.7 mg/dL (1.6-2.6); Osmolality,Calculated 274 (275-295); Potassium 3.9 mMol/L (3.4-5.1); Sodium 136 mMol/L (136-145); Total Protein 6.5 gm/dL (5.7-8.2); eGFR > 60 See Note
[2025-01-17 15:40] LABS: Troponin I 0.581 ng/mL (0.0-0.045)
--- NOTE | 2025-01-17 16:04 | PD.EDABDPN ---
ED Abdominal Pain RME/HPI General Chief Complaint: Abdominal Pain Stated complaint: ABD. PAIN AND BLOATING Time seen by provider: 01/17/25 14:58 Arrival date/time: 01/17/25 14:26 Limitations: no limitations RME / HPI RME / HPI narrative: 01/17/25 14:26 49-year-old male presents to the emergency department for complaints of abdominal pain DR. RICHI TRAN ED EVALUATION: 49-year-old male presents to the Emergency Department with abdominal swelling for the past week, associated with nausea but no vomiting or diarrhea. He also reports dysuria. Social history is significant for heavy alcohol consumption, approximately 1?2 caguamas (32 oz beer bottles) per day, with last intake 2?3 days ago. Past medical history includes lung surgery for an infection requiring fluid removal. No history of myocardial infarction and no known allergies. Related Data Previous Rx's ?Medication ?Instructions ?Recorded guaifenesin 100 mg/5 mL oral liquid 200 mg (10 mL) PO Q4H PRN cough 05/22/24 #500 mL acetaminophen 300 mg-codeine 30 mg 2 tab PO TID PRN pain #20 tabs 06/09/24 tablet albuterol sulfate 90 mcg/actuation 2 inh inhalation QID PRN shortness 06/09/24 aerosol inhaler of breath or wheezing #8.5 grams cefdinir 300 mg capsule 300 mg PO BID #14 caps 06/09/24 furosemide 20 mg tablet (Lasix) 20 mg PO QDAY #14 tabs 06/16/24 Allergies Allergy/AdvReac Type Severity Reaction Status Date / Time No Known Allergies Allergy Verified 01/17/25 14:29 Review of Systems Review of Systems Systems Reviewed: All systems reviewed, normal except as documented Past Medical History Past Medical History CARDIAC: Positive Cardiac Disorders (Pt has on a wearable cardioverter defibrillator) RESPIRATORY: Positive Pulmonary Embolism PSYCHO/SOCIAL: Positive Depression and Anxiety OTHER HISTORY: Positive Blood Transfusions Family History FAMILY HISTORY: Positive Family Cardiac Disorders Social History SMOKING STATUS: Never smoker SUBSTANCE USE: does not use ALCOHOL: Never ED Exam General Limitations: Present no limitations General appearance: Present alert, in no apparent distress and other (chronically ill with acute decompensation) Head Head exam: Present atraumatic, normocephalic and normal inspection Eye Eye exam: Present normal appearance, PERRL and EOMI ENT ENT exam: Present normal exam, normal oropharynx and mucous membranes moist Neck Neck exam: Present normal inspection, full ROM and trachea midline Chest Chest inspection: Present normal inspection and symmetric chest wall rise Respiratory Respiratory exam: Present normal lung sounds bilaterally Cardiovascular Cardiovascular exam: Present regular rate, normal rhythm and normal heart sounds Abdominal Exam Abdominal exam: Present normal bowel sounds and other (firm abdomen) Extremities Exam Extremities exam: Present normal inspection and full ROM Back Exam Back exam: Present normal inspection and full ROM Neurological Exam Neurological exam: Present alert, oriented X3 and CN II-XII intact Psychiatric Psychiatric exam: Present normal affect and normal mood Skin Skin exam: Present warm, dry, intact and normal color Course Quality Measures none Orders Category Date Time Status EKG (ED ONLY) *Do not use* NOW Care 01/17/25 14:[address] abdomen pelvis wo con Stat Exams 01/17/25 14:51 Completed EKG (ED Only) Stat Exams 01/17/25 14:46 Draft US abdomen limited Stat Exams 01/17/25 16:06 Completed XR chest 2V Stat Exams 01/17/25 14:51 Completed Alcohol, Blood Medical Stat Lab 01/17/25 15:02 Completed B-Type Natriuretic Peptide Stat Lab 01/17/25 15:02 Completed CBC Stat Lab 01/17/25 15:02 Completed Comprehensive Metabolic Panel Stat Lab 01/17/25 15:02 Completed Drug Screen,Urine Stat Lab 01/17/25 16:56 Completed Lipase Stat Lab 01/17/25 15:02 Completed Magnesium Stat Lab 01/17/25 15:02 Completed Partial Thromboplastin Time Stat Lab 01/17/25 15:02 Completed Prothrombin Time with INR Stat Lab 01/17/25 15:02 Completed Troponin I Stat Lab 01/17/25 15:02 Completed Urinalysis, C/S if Indicated Stat Lab 01/17/25 16:56 Completed Vital Signs Vital signs: Vital Signs Temperature 97.7 F 01/17/25 14:39 Pulse Rate 120 H 01/17/25 14:39 Respiratory Rate 26 H 01/17/25 14:39 Blood Pressure 121/82 01/17/25 14:39 Pulse Oximetry (%) 100 01/17/25 14:39 Oxygen Delivery Method Room Air 01/17/25 14:39 Abdominal Pain MDM MDM Narrative MDM Narrative:: I, Lissa Sousa am scribing for and in the presence of Dr. Jones. Patient is a 49-year-old male is in the emergency department concerns for abdominal pain. Vital signs and exam as listed. Prior provider evaluated patient ordered labs, chest x-ray EKG. Also offered medication for symptom relief. Labs with leukocytosis 11.5, no left shift, hemoglobin normal, no thrombocytosis, no acute electrolyte abnormality, kidney function normal, patient with a T. bili of 2.9, AST 464, ALT 457, alk phos normal troponin 0.58, BNP 2913. EKG sinus tachycardia, nonspecific T wave changes. Chest x-ray without evidence of congestion concerning for heart failure. On my evaluation patient hemodynamically stable not in distress abdomen is firm. At this time my shift is over and I have transitioned care to oncoming provider Dr. Gonzalez. Patient is pending results of his workup and safe dispo. Patient data External records reviewed:: [facility] previous records Clinical information provided by:: patient Social determinants that could affect healthcare access:: alcohol use Patient has the following chronic illnesses:: Social history is significant for heavy alcohol consumption, approximately 1?2 caguamas (32 oz beer bottles) per day, with last intake 2?3 days ago. Past medical history includes lung surgery for an infection requiring fluid removal. No history of myocardial infarction and no known allergies. How is presenting disease/condition affected by chronic disease/condition?: exacerbated by Evaluation data The following diagnostics were reviewed and interpreted by me:: lab results, radiology exam(s) and EKG tracing(s) (My interpretation: EKG performed at 1449 hours, sinus tachycardia, rate 125, prolonged QTc 559, non specific ST-T wave changes, no cardiac alert) Lab and/or radiology exams considered but not ordered:: none Interpretation Summary: Procedure(s): XR chest 2V Accession Number(s): [id number] cc: Heather (ARETHA),[place] CARIAS; Andrea Henson MD~ Examination: AP lateral chest 2 views TECHNIQUE: Sitting portable AP lateral chest 2 views INDICATIONS: Chest pain shortness of breath today. FINDINGS: Moderate enlargement left ventricle Prominent vascular congestion. Early septal pulmonary edema and fluid in the fissures on the lateral view IMPRESSION: Early heart failure Dictated By: Andrea Henson MD Procedure(s): CT abdomen pelvis wo [facility] Accession Number(s): [id number] cc: Heather (ARETHA),[place] CARIAS; Andrea Henson MD; Ashu Holcomb MD~ Examination: CT abdomen and pelvis without contrast. Coronal 3-D reconstructions. Sagittal 2-D reconstructions. Date and time of exam:January 17, 2025, 1734 hours Comparison April 09, 2024. INDICATIONS: Generalized abdominal pain and bloating today CTDI: vol (mGy): 5.97 DLP: (mGycm): 349 Technique: Axial images of the abdomen have been obtained, 3 mm slice thickness Intravenous contrast material has not been administered. Low dose protocols were performed. One or more of the following dose reduction techniques were used; automated exposure control, adjustment of the mA and/or KV according to patient size, use of iterative reconstruction technique. Findings: Moderate enlargement cardiac contour with significant vascular congestion and small bilateral pleural effusions Cirrhosis, liver nodular in contour with mild to moderate ascites Gallbladder wall is thickened but this may be secondary to the patient's ascites No pancreatic mass No hydronephrosis Aorta normal size No bowel obstruction Normal-appearing appendix No diverticulitis Urinary bladder wall shows thickening to 7 mm Fluid in a left inguinal hernia Advanced disc narrowing at the lower 3 lumbar levels IMPRESSION: Moderate enlargement cardiac contour with mild heart failure pattern Cirrhosis Ldgg-so-jmgkukxo ascites Gallbladder wall is thickened but this may be secondary to the patient's ascites, recommend HIDA scan follow-up as clinically warranted Cystitis pattern Dictated By: Andrea Henson MD Procedure(s): US abdomen limited Accession Number(s): [id number] cc: Andrea Henson MD; Jennifer Jones MD~ Examination: Abdomen sonogram, Limited Date and time of exam: January 17, 2025, 1627 hours INDICATIONS: Elevated liver function tests on laboratory examination today, with abdominal pain Technique: Real-time briceno scale transabdominal sonographic images of the upper abdomen obtained. Findings: Negative for gallstones Gallbladder wall is abnormally thickened 0.98 cm Common bile duct 0.3 cm Pancreatic head 2.4 cm Liver 15.2 cm fatty infiltration lobular contour mild free fluid adjacent to the right lobe of the liver Normal hepatopedal portal venous flow Patent IVC IMPRESSION: Abnormally thickened gallbladder wall, consider HIDA scan or MRCP follow-up to exclude cholecystitis Dictated By: Andrea Henson MD Medications / Prescriptions Medications or Prescriptions considered but not ordered:: see above Medication administrations:: see above if any Consultations Consultation(s) initiated? (list below): No Diagnosis Differential diagnosis abdominal pain: other (Alcoholic liver disease with ascites, spontaneous bacterial peritonitis, UTI) Most likely diagnosis given after review of the tests above:: CHF exacerbation, abdominal pain Admission Indicated Admission indicated?: not indicated Explain why admission is indicated or not indicated:: Workup not completed Admission Request Was there a request for admission?: No Disposition Plan Disposition Plan: other (specify) (Signed out) Discharge Plan Prescriptions/Referrals Prescriptions/Med Rec: No Action guaifenesin 100 mg/5 mL liquid 200 mg PO Q4H PRN (Reason: cough) Qty: 500 0RF acetaminophen-codeine 300-30 mg tablet 2 tab PO TID MDD 6 PRN (Reason: pain) Qty: 20 0RF albuterol sulfate 90 mcg/actuation HFA aerosol inhaler 2 inh inhalation QID PRN (Reason: shortness of breath or wheezing) Qty: 8.5 0RF cefdinir 300 mg capsule 300 mg PO BID Qty: 14 0RF furosemide [Lasix] 20 mg tablet 20 mg PO QDAY Qty: 14 0RF Referrals: Ashu Holcomb MD [Primary Care Provider] - In 1 week Problem List Clinical Impression: CHF exacerbation, Abdominal pain Patient/Caregiver Discharge Instructions Print Language: Martiniquais
[2025-01-17 17:08] LABS: Collection Type, Urine Clean Catch
[2025-01-17 17:50] LABS: Bacteria,Urine Rare; Bilirubin,Urine 1+ (Negative); Blood,Urine Negative (Negative); Color,Urine Drk-Yellow (Lt Yel-Yel); Culture Indicated,Urine Not Indicated; Glucose, Urine Negative (Negative); Hyaline Casts,Urine 1 /hpf (0-1); Ketones,Urine Negative (Negative); Leukocyte Esterase,Urine Negative (Negative); Nitrite,Urine Negative (Negative); PH,Urine 6.0 (5.0-7.0); Protein,Urine 2+ (Neg - Trace); RBC,Urine 1 /hpf (0-3); Specific Gravity,Urine 1.028 (1.001-1.035); Squamous Epithelial Cell,Urine 1 /hpf (0-5); Urobilinogen,Urine 6.0 mg/dL (0.0-1.0); WBC,Urine 4 /hpf (0-5)
[2025-01-17 17:51] LABS: Amphetamine/Methamp Scrn,U Positive (Negative); Barbiturate Screen,Urine Negative (Negative); Benzodiazepines Screen,Urine Negative (Negative); Benzoylecgonine Screen, Ur Negative (Negative); Fentanyl Screen,Urine Negative (Negative); Opiate Screen,Urine Negative (Negative); THC Screen,Urine Negative (Negative)
[2025-01-17 18:02] LABS: Clarity,Urine Hazy (Clear/Hazy)
[2025-01-17 20:24] VITALS: BP 117/90; PULSE 113; RESP 16; TEMP 37.8; O2SAT 99
--- NOTE | 2025-01-17 21:00 | PD.EDABDPN ---
ED Abdominal Pain RME/HPI General Chief Complaint: Abdominal Pain Stated complaint: ABD. PAIN AND BLOATING Time seen by provider: 01/17/25 14:58 Arrival date/time: 01/17/25 14:26 Limitations: no limitations RME / HPI RME / HPI narrative: 01/17/25 14:26 49-year-old male presents to the emergency department for complaints of abdominal pain DR. RICHI TRAN ED EVALUATION: 49-year-old male presents to the Emergency Department with abdominal swelling for the past week, associated with nausea but no vomiting or diarrhea. He also reports dysuria. Social history is significant for heavy alcohol consumption, approximately 1?2 caguamas (32 oz beer bottles) per day, with last intake 2?3 days ago. Past medical history includes lung surgery for an infection requiring fluid removal. No history of myocardial infarction and no known allergies. See [facility] for Dr. Gonzalez's HPI Documentation. Related Data Previous Rx's ?Medication ?Instructions ?Recorded guaifenesin 100 mg/5 mL oral liquid 200 mg (10 mL) PO Q4H PRN cough 05/22/24 #500 mL acetaminophen 300 mg-codeine 30 mg 2 tab PO TID PRN pain #20 tabs 06/09/24 tablet albuterol sulfate 90 mcg/actuation 2 inh inhalation QID PRN shortness 06/09/24 aerosol inhaler of breath or wheezing #8.5 grams cefdinir 300 mg capsule 300 mg PO BID #14 caps 06/09/24 furosemide 20 mg tablet (Lasix) 20 mg PO QDAY #14 tabs 06/16/24 Allergies Allergy/AdvReac Type Severity Reaction Status Date / Time No Known Allergies Allergy Verified 01/17/25 14:29 Review of Systems Review of Systems Systems Reviewed: All systems reviewed, normal except as documented Past Medical History Past Medical History CARDIAC: Positive Cardiac Disorders and Congestive Heart Failure RESPIRATORY: Positive Pulmonary Embolism PSYCHO/SOCIAL: Positive Depression and Anxiety OTHER HISTORY: Positive Blood Transfusions Family History FAMILY HISTORY: Positive Family Cardiac Disorders Social History ALCOHOL: Current ED Exam Narrative Physical exam: See [facility] for Dr. Gonzalez's Physical Exam Documentation. General Limitations: Present no limitations General appearance: Present alert, in no apparent distress and other (chronically ill with acute decompensation) Course Course Course Narrative: CXR was ordered for determining the etiology of shortness of breath. Quality Measures none Orders Category Date Time Status Bedside COVID-19 Antigen Test NOW Care 01/17/25 21:00 Active Bedside Influenza A&B Antigen Test NOW Care 01/17/25 21:00 Completed EKG (ED ONLY) *Do not use* NOW Care 01/17/25 14:46 Completed MRI Screening NOW Care 01/17/25 21:02 Active Saline [Insert IV] NOW Care 01/17/25 21:[address] abdomen pelvis wo con Stat Exams 01/17/25 14:51 Completed EKG (ED Only) Stat Exams 01/17/25 14:46 Draft MR MRCP Stat Exams 01/17/25 Ordered US abdomen limited Stat Exams 01/17/25 16:06 Completed XR chest 2V Stat Exams 01/17/25 14:51 Completed Alcohol, Blood Medical Stat Lab 01/17/25 15:02 Completed Amylase Stat Lab 01/17/25 21:27 Completed B-Type Natriuretic Peptide Stat Lab 01/17/25 15:02 Completed Bilirubin,Direct Stat Lab 01/17/25 21:27 Completed Blood Culture (Lab) Stat Lab 01/17/25 21:27 Received CBC Stat Lab 01/17/25 15:02 Completed CK [Creatine Kinase] Stat Lab 01/17/25 21:27 Completed CRP [C-Reactive Protein] Stat Lab 01/17/25 21:27 Completed Comprehensive Metabolic Panel Stat Lab 01/17/25 15:02 Completed D-Dimer Stat Lab 01/17/25 21:27 Completed Drug Screen,Urine Stat Lab 01/17/25 16:56 Completed ESR [Sed Rate (ESR)] Stat Lab 01/17/25 21:27 Completed LDH (Lactate Dehydrogenase) Stat Lab 01/17/25 21:27 Completed Lipase Stat Lab 01/17/25 15:02 Completed Magnesium Stat Lab 01/17/25 15:02 Completed Partial Thromboplastin Time Stat Lab 01/17/25 15:02 Completed Procalcitonin Stat Lab 01/17/25 21:27 Completed Prothrombin Time with INR Stat Lab 01/17/25 15:02 Completed TSH [Thyroid Stimulating Hormone] Stat Lab 01/17/25 21:27 Completed Troponin I Stat Lab 01/17/25 15:02 Completed Troponin I Stat Lab 01/17/25 21:27 Completed Urinalysis, C/S if Indicated Stat Lab 01/17/25 16:56 Completed HYDROmorphone INJ [Dilaudid Inj] Med 01/17/25 21:01 Discontinued 1 mg IVP X1 ONE Ketorolac Inj [Toradol Inj] Med 01/17/25 21:01 Discontinued 30 mg IVP X1 ONE Ondansetron Inj [Zofran Inj] Med 01/17/25 21:01 Discontinued 4 mg IVP X1 ONE Piper/Tazo 3.375 gm Premix [Zosyn] Med 01/17/25 21:04 Discontinued 3.375 gm in 50 ml IV X1 Vital Signs Vital signs: Vital Signs Temperature 97.7 F 01/17/25 14:39 Pulse Rate 120 H 01/17/25 14:39 Respiratory Rate 26 H 01/17/25 14:39 Blood Pressure 121/82 01/17/25 14:39 Pulse Oximetry (%) 100 01/17/25 14:39 Oxygen Delivery Method Room Air 01/17/25 14:39 Abdominal Pain MDM MDM Narrative MDM Narrative:: Scribe Attestation: Jaci Grimm, am scribing for and in the presence of Dr. Gonzalez. This section includes all my notes and documentations, including HPI, PE, and ED course. Jony Gonzalez MD HPI: 49 y/o male with Hx of Alcohol use, PE and CHF presents with abdominal pain and bloating with associated fever, nausea, fatigue, and cough x 2 weeks. Denies chest pain. No other complaints. ROS: All negative except as documented in HPI. Physical Exam: General: Alert and oriented. No acute distress when remaining still. Eyes: Conjunctivae and lids clear. ENT: No nasal congestion. Neck: Supple. Heart: RRR. Lungs: No respiratory distress. Good air movement. No rhonchi, wheezing, rales. Abdomen: Soft and nontender. Normal bowel sounds. No distension. No rebound or guarding. Back: No CVA tenderness. Skin: Warm and dry. Neuro: Alert and oriented X 3. I reviewed all diagnostic test results: My interpretation of the EKG is: My interpretation of the chest x-ray is: Early heart failure. My review of the Abdomen/Pelvis CT report is: Moderate enlargement cardiac contour with mild heart failure pattern. Cirrhosis. [id number] ascites. Gallbladder wall is thickened but this may be secondary to the patient's ascites, recommend HIDA scan follow-up as clinically warranted. Cystitis pattern. My review of the Abdomen US report is: Abnormally thickened gallbladder wall, consider HIDA scan or MRCP follow-up to exclude cholecystitis. Blood tests and urine tests Covid/Influenza: Negative. At this point, diagnoses include: Abdominal pain, CHF exacerbation. Treatment here included: Zosyn 3.375 G, Dilaudid 2 mg, Toradol 30 mg, Zofran 4 mg. Pending MRCP. Patient signed out to Dr. Garcia at 6 AM. Jony Gonzalez MD Patient data External records reviewed:: [facility] previous records (Reviewed prior ED records form 06/16/24. Patient was seen for Congestive heart failure.) Clinical information provided by:: patient Social determinants that could affect healthcare access:: alcohol use Patient has the following chronic illnesses:: PE, CHF How is presenting disease/condition affected by chronic disease/condition?: exacerbated by Evaluation data The following diagnostics were reviewed and interpreted by me:: lab results, radiology exam(s) and EKG tracing(s) Lab and/or radiology exams considered but not ordered:: None Interpretation Summary: I reviewed all diagnostic test results: My interpretation of the chest x-ray is: Early heart failure. My review of the Abdomen/Pelvis CT report is: Moderate enlargement cardiac contour with mild heart failure pattern. Cirrhosis. [id number] ascites. Gallbladder wall is thickened but this may be secondary to the patient's ascites, recommend HIDA scan follow-up as clinically warranted. Cystitis pattern. My review of the Abdomen US report is: Abnormally thickened gallbladder wall, consider HIDA scan or MRCP follow-up to exclude cholecystitis. Blood tests and urine tests Covid/Influenza: Negative. Medications / Prescriptions Medications or Prescriptions considered but not ordered:: None Medication administrations:: Medication Administration History Discontinued Medications Hydromorphone HCl (Hydromorphone Inj 2 Mg/Ml Vial) 1 mg IVP X1 ONE Stop: 01/17/25 21:02 Last Admin: 01/17/25 22:47 Dose: 1 mg Documented By: IAM Piperacillin/Tazobactam/Dextrose (Zosyn) 3.375 gm in 50 mls @ 100 mls/hr IV X1 ONE Stop: 01/17/25 21:33 Last Infusion: 01/17/25 22:10 Dose: Infused Documented By: Admin: 01/17/25 21:39 Dose: 100 mls/hr Documented By: AMBER Ketorolac Tromethamine (Ketorolac Inj 30 Mg/Ml Vial) 30 mg IVP X1 ONE Stop: 01/17/25 21:02 Last Admin: 01/17/25 21:36 Dose: 30 mg Documented By: AMBER Ondansetron HCl (Ondansetron Inj 2 Mg/Ml Inj 2 Ml) 4 mg IVP X1 ONE; Protocol Stop: 01/17/25 21:02 Last Admin: 01/17/25 21:34 Dose: 4 mg Documented By: AMBER Zosyn 3.375 G, Dilaudid 2 mg, Toradol 30 mg, Zofran 4 mg Consultations Consultation(s) initiated? (list below): No Diagnosis Differential diagnosis abdominal pain: abdominal pain, diverticulitis, gastroenteritis, pancreatitis, small bowel obstruction and other (Cirrhosis) Most likely diagnosis given after review of the tests above:: Abdominal pain, CHF exacerbation. Admission Indicated Admission indicated?: not indicated Explain why admission is indicated or not indicated:: Pending MRCP. Admission Request Was there a request for admission?: No Disposition Plan Disposition Plan: other (specify) (Patient signed out to Dr. Garcia at 6 AM.) Discharge Plan Prescriptions/Referrals Prescriptions/Med Rec: No Action guaifenesin 100 mg/5 mL liquid 200 mg PO Q4H PRN (Reason: cough) Qty: 500 0RF acetaminophen-codeine 300-30 mg tablet 2 tab PO TID MDD 6 PRN (Reason: pain) Qty: 20 0RF albuterol sulfate 90 mcg/actuation HFA aerosol inhaler 2 inh inhalation QID PRN (Reason: shortness of breath or wheezing) Qty: 8.5 0RF cefdinir 300 mg capsule 300 mg PO BID Qty: 14 0RF furosemide [Lasix] 20 mg tablet 20 mg PO QDAY Qty: 14 0RF Referrals: Ashu Holcomb MD [Primary Care Provider] - In 1 week Problem List Clinical Impression: CHF exacerbation, Abdominal pain Patient/Caregiver Discharge Instructions Print Language: Tajik
[2025-01-17] MEDS: ONDANSETRON INJ 2 MG/ML INJ 2 ML 4 MG IVP (21:34)
[2025-01-17] MEDS: KETOROLAC INJ 30 MG/ML VIAL IVP (21:36)
[2025-01-17] MEDS: PIPER/TAZO 3.375 GM PREMIX 3.375 GM/50 ML BAG IV (21:39)
[2025-01-17 21:45] LABS: Sed Rate (ESR) 9 mm/hr (0-20)
[2025-01-17 22:05] LABS: D-Dimer 2060 ng/mL (<600)
[2025-01-17] MEDS: HYDROmorphone INJ 2 MG/ML VIAL 1 MG IVP (22:47)
[2025-01-17 23:11] VITALS: BP 109/91; PULSE 105; RESP 14; TEMP 36.9; O2SAT 95
[2025-01-17 23:23] LABS: Amylase 22 U/L (30-118); Bilirubin,Direct 1.2 mg/dL (0.0-0.3); C-Reactive Protein 4.2 mg/dL (0.0-0.9); Creatine Kinase 45 U/L (34-171); LDH (Lactate Dehydrogenase) 618 U/L (120-246); Procalcitonin 0.21 ng/ml (0.0-0.49); Thyroid Stimulating Hormone 3.00 uIU/mL (0.55-4.78)
[2025-01-17 23:24] LABS: Troponin I 0.547 ng/mL (0.0-0.045)
[2025-01-18] VITALS (12 sets, daily range): BP systolic 98–121; BP diastolic 50–95; PULSE 91–106; RESP 16–98; TEMP 36.2–36.9; O2SAT 95–97
--- NOTE | 2025-01-18 | XR_ITS ---
MRI abdomen, without contrast. MRCP Date and time of exam: January 18, 2025 0726 hours, comparison April 09, 2024 INDICATIONS: CT examination January 17, 2025, cirrhosis, thickened gallbladder wall Technique: Multiple axial and coronal images of the abdomen have been obtained with the Siemens 1.5T MRI scanner. Images obtained included T1 weighted transverse images, T2-weighted transverse images, T2-weighted transverse images fat-suppressed, T2 weighted haste fat suppressed transverse images, T1 weighted images, in and out of phase images, T2-weighted coronal images, breath hold, T2 weighted haze coronal images as well as T2 weighted coronal thick slab images, MRCP. Findings: Liver is irregular in contour, no focal liver lesions except 3 mm cyst Moderate ascites No gallstones Minimal fluid around the gallbladder, gallbladder wall itself does not appear thickened Normal common hepatic common bile duct Spleen is not enlarged No hydronephrosis Aorta normal size IMPRESSION: Cirrhosis Moderate ascites Negative for cholecystitis, negative for cholelithiasis
--- NOTE | 2025-01-18 04:30 | PD.EDADDENDU ---
Emergency Room Addendum <Jaci Barroso - Last Filed: 01/18/25 04:31> Addendum Narrative: I took over the care from previous shift physician at 6 PM on . See previous notes for complete H & P and ED course. I reviewed all diagnostic test results. My interpretation of the EKG is My interpretation of the chest x-ray is My review of the CT report is Blood tests and urine tests Covid/Influenza: Diagnoses include: Treatment here included Not yet done: I discussed the case with our hospitalist. About the presentation and exam and diagnostics and treatments here. And need of further care in the hospital. Will accept the patient. Not yet done: Based on my best medical judgment, made decision no further evaluation or treatment indicated at this time. Patient understands and agrees to the discharge instructions customized and printed, see below. Jony Gonzalez MD <Jony Gonzalez MD - Last Filed: 01/18/25 04:34> Addendum Narrative: I took over the care from previous shift physician, Dr. Jones, at 6 PM on . See previous notes for complete H & P and ED course. I reviewed all diagnostic test results. Diagnoses include: Gallbladder thickening CHF Cirrhosis Ascites LFT elevation Elevated troponin Methamphetamine use Treatment here included: Lasix 40 mg IV Dilaudid 1 mg IV Zofran 4 mg IV Zosyn 3.375 g IV Toradol 30 mg IV MRCP ordered. At 6 AM on 01/18/2025, care of the patient was transferred to Dr. Garcia. Jony Gonzalez MD
[2025-01-18] MEDS: FUROSEMIDE INJ 10 MG/ML 4ML VIAL 40 MG IVP (04:46)
--- NOTE | 2025-01-18 06:28 | PD.EDADDENDU ---
Emergency Room Addendum Addendum Narrative: 0600: Care assumed from Dr. Gonzalez, the previous shift emergency physician. Past medical, surgical, social and family history reviewed. Vitals and home medications reviewed. I will assume the care of the patient at this time, pending MRCP and final disposition. Please refer to the emergency department record for history and examination from initial visit.? Physical exam by me shows patient under no acute distress at this time. Troponin is low today at 0.547, looking at previous labs is it always low. 1137: Troponins are somewhat elevated, but has chronic elevated troponins. Patient complains of epigastric pain and tested positive for methamphetamine. Plan to admit the patient. 1159: Discussed test HPI, PMHx, lab, radiology results and/or management with hospitalist Dr. Ernandez. Will admit for further evaluation and management. Accepts patient for admission. Diagnoses: -Non-STEMI -Methamphetamine abuse -Epigastric pain Results Objective Laboratory: Laboratory Last Values WBC 11.5 Thou/mm3 (3.8-10.6) H 01/17/25 15:02 RBC 5.26 Miln/mm3 (4.50-5.90) 01/17/25 15:02 Hgb 15.9 g/dL (13.5-16.0) 01/17/25 15:02 Hct 47.9 % (41.0-53.0) 01/17/25 15:02 MCV 91 fL (80-100) 01/17/25 15:02 MCH 30.2 pg (25.0-35.0) 01/17/25 15:02 MCHC 33.2 g/dl (31.0-37.0) 01/17/25 15:02 RDW Std Deviation 53.7 fL (35.1-43.9) H 01/17/25 15:02 Plt Count 315 Thou/mm3 (140-440) 01/17/25 15:02 Neut % (Auto) 47 % (37-80) 01/17/25 15:02 Lymph % (Auto) 38 % (10-50) 01/17/25 15:02 Dent % (Auto) 11 % (0-12) 01/17/25 15:02 Eos % (Auto) 2 % (0-10) 01/17/25 15:02 Baso % (Auto) 1 % (0-2.5) 01/17/25 15:02 Neut # (Auto) 5.4 Thou/mm3 (1.8-7.7) 01/17/25 15:02 Lymph # (Auto) 4.4 Thou/mm3 (1.0-4.8) 01/17/25 15:02 Dent # (Auto) 1.3 Thou/mm3 (0.0-0.8) H 01/17/25 15:02 Eos # (Auto) 0.3 Thou/mm3 (0.0-0.5) 01/17/25 15:02 Baso # (Auto) 0.1 Thou/mm3 (0.0-0.2) 01/17/25 15:02 Immature Gran # (Auto) 0.02 Thou/mm3 (0.00-0.00) H 01/17/25 15:02 Absolute Nucleated RBC 0.00 Thou/mm3 (0.00-0.00) 01/17/25 15:02 Immature Gran % 0 % (0-0) 01/17/25 15:02 Nucleated RBC % 0 /100 WBC (0) 01/17/25 15:02 ESR 9 mm/hr (0-20) 01/17/25 21: PT 16.7 Seconds (9.0-12.2) H 01/17/25 15:02 INR 1.6 (0.9-1.3) H 01/17/25 15:02 APTT 26.5 Seconds (22.0-36.0) 01/17/25 15:02 D-Dimer 2060 ng/mL (<600) H 01/17/25 21:27 Sodium 136 mMol/L (136-145) 01/17/25 15:02 Potassium 3.9 mMol/L (3.4-5.1) 01/17/25 15:02 Chloride 102 mMol/L (98-107) 01/17/25 15:02 Carbon Dioxide 22.5 mMol/L (20.0-31.0) 01/17/25 15:02 Anion Gap 12 (7-16) 01/17/25 15:02 BUN 15 mg/dL (9-23) 01/17/25 15:02 Creatinine 1.2 mg/dL (0.6-1.3) 01/17/25 15:02 Estim Creat Clear Calc 62.4 mL/min (>60) 01/17/25 15:02 eGFR > 60 See Note (60-) 01/17/25 15:02 BUN/Creatinine Ratio 13 Ratio (12-20) 01/17/25 15:02 Glucose 139 mg/dL (74-106) H 01/17/25 15:02 Calculated Osmolality 274 (275-295) L 01/17/25 15:02 Calcium 9.1 mg/dL (8.3-10.6) 01/17/25 15:02 Corrected Calcium 9.3 mg/dL (8.5-10.1) 01/17/25 15:02 Magnesium 1.7 mg/dL (1.6-2.6) 01/17/25 15:02 Total Bilirubin 2.9 mg/dL (0.3-1.2) H 01/17/25 15:02 Direct Bilirubin 1.2 mg/dL (0.0-0.3) H 01/17/25: AST 464 U/L (0-34) H 01/17/25 15:02 ALT 457 U/L (10-49) H 01/17/25 15:02 Alkaline Phosphatase 95 U/L (46-116) 01/17/25 15:02 Lactate Dehydrogenase 618 U/L (120-246) H 01/17/25: Total Creatine Kinase 45 U/L (34-171) 01/17/25: Troponin I 0.547 ng/mL (0.0-0.045) H* 01/17/25 21: C-Reactive Prot, Quant 4.2 mg/dL (0.0-0.9) H 01/17/25: B-Natriuretic Peptide 2913 pg/mL (0-100) H* 01/17/25 15:02 Total Protein 6.5 gm/dL (5.7-8.2) 01/17/25 15:02 Albumin 3.7 gm/dL (3.5-5.0) 01/17/25 15:02 Globulin 2.8 gm/dL (2.3-3.5) 01/17/25 15:02 Albumin/Globulin Ratio 1.3 (1.2-2.2) 01/17/25 15:02 Amylase 22 U/L (30-118) L 01/17/25 21: Lipase 31 U/L (12-53) 01/17/25 15:02 Procalcitonin 0.21 ng/ml (0.0-0.49) 01/17/25 21: TSH 3.00 uIU/mL (0.55-4.78) 01/17/25 21:27 Ur Collection Type Clean Catch 01/17/25 16:56 Urine Color Drk-Yellow (Lt Yel-Yel) A 01/17/25 16:56 Urine Clarity Hazy (Clear/Hazy) 01/17/25 16:56 Urine pH 6.0 (5.0-7.0) 01/17/25 16:56 Ur Specific [place] 1.028 (1.001-1.035) 01/17/25 16:56 Urine Protein 2+ (Neg - Trace) A 01/17/25 16:56 Urine Glucose (UA) Negative (Negative) 01/17/25 16:56 Urine Ketones Negative (Negative) 01/17/25 16:56 Urine Blood Negative (Negative) 01/17/25 16:56 Urine Nitrite Negative (Negative) 01/17/25 16:56 Urine Bilirubin 1+ (Negative) A 01/17/25 16:56 Urine Urobilinogen (Auto) 6.0 mg/dL (0.0-1.0) 01/17/25 16:56 Ur Leukocyte Esterase Negative (Negative) 01/17/25 16:56 Urine RBC 1 /hpf (0-3) 01/17/25 16:56 Urine WBC 4 /hpf (0-5) 01/17/25 16:56 Ur Squamous Epith Cells 1 /hpf (0-5) 01/17/25 16:56 Urine Bacteria Rare (None) 01/17/25 16:56 Hyaline Casts 1 /hpf (0-1) 01/17/25 16:56 Ur Culture Indicated? Not Indicated 01/17/25 16:56 Urine Opiates Screen Negative (Negative) 01/17/25 16:56 Urine Fentanyl Screen Negative (Negative) 01/17/25 16:56 Ur Barbiturates Screen Negative (Negative) 01/17/25 16:56 U Amphetamin/Meth Scrn Positive (Negative) A 01/17/25 16:56 U Benzodiazepines Scrn Negative (Negative) 01/17/25 16:56 U Cocaine Metab Screen Negative (Negative) 01/17/25 16:56 U Marijuana (THC) Screen Negative (Negative) 01/17/25 16:56 Ethyl Alcohol < 3.0 mg/dL (0-10.0) 01/17/25 15:02 Imaging: Procedure(s): MR MRCP Accession Number(s): [id number] cc: Jony Gonzalez MD; Andrea Henson MD; Ashu Holcomb MD~ MRI abdomen, without contrast. MRCP Date and time of exam: January 18, 2025 0726 hours, comparison April 09, 2024 INDICATIONS: CT examination January 17, 2025, cirrhosis, thickened gallbladder wall Technique: Multiple axial and coronal images of the abdomen have been obtained with the Siemens 1.5T MRI scanner. Images obtained included T1 weighted transverse images, T2-weighted transverse images, T2-weighted transverse images fat-suppressed, T2 weighted haste fat suppressed transverse images, T1 weighted images, in and out of phase images, T2-weighted coronal images, breath hold, T2 weighted haze coronal images as well as T2 weighted coronal thick slab images, MRCP. Findings: Liver is irregular in contour, no focal liver lesions except 3 mm cyst Moderate ascites No gallstones Minimal fluid around the gallbladder, gallbladder wall itself does not appear thickened Normal common hepatic common bile duct Spleen is not enlarged No hydronephrosis Aorta normal size IMPRESSION: Cirrhosis Moderate ascites Negative for cholecystitis, negative for cholelithiasis Dictated By: Andrea Henson MD
--- NOTE | 2025-01-18 07:24 | PC.NURSE ---
PATIENT TO MRI FOR MRCP AT THIS TIME
--- NOTE | 2025-01-18 07:30 | PC.NURSE ---
pt to MRI
--- NOTE | 2025-01-18 08:30 | PC.NURSE ---
pt resting in bed in no apparent distress. pt denies pain or discomfort. pt requesting food. informed pt that we are waiting for mri results just in case he needs to be transferred or go to OR. call light within reach.
[2025-01-18] MEDS: MG HYD/AL HYD/SIME (Maalox Reg) SUSP 30 ML UDC PO (12:10)
--- NOTE | 2025-01-18 12:30 | PC.NURSE ---
HOSPITALIST AT BEDSIDE TO SEE PT
--- NOTE | 2025-01-18 13:24 | XR_ITS ---
Examination: Abdomen sonogram, Limited Date and time of exam: January 18, 2025 1349 hours INDICATIONS: Cirrhosis, increasing abdominal distention this week Technique: Real-time briceno scale transabdominal sonographic images of the upper abdomen obtained. Findings: Minimal ascitic fluid IMPRESSION: Minimal ascitic fluid
--- NOTE | 2025-01-18 13:35 | ESHP_ITS ---
<Statement entered by Zeyad Herman MD - 01/18/25 17:42> I have reviewed the note and agree with the resident's assessment & plan with exceptions as below. I have personally reviewed labs, imaging, home meds/prior records, examined the patient, formulated and discussed management plan with the IM team. Patient examined at bedside today. No acute overnight events. Patient currently admitted as patient was being evaluated for abdominal pain. Patient does have history of cirrhosis, however he denies that he was aware of this. Patient found to have meth on urine drug screen, however he denies that as well. Patient does not seem to be in overt exacerbation of heart failure, however patient does seem to have decompensated liver cirrhosis. Patient also complaining of dark bowel movements, will order FOBT and will consult GI if needed, hemoglobin stable at this time. Will order echocardiogram for further evaluation as patient does have history of meth and HFrEF. Paracentesis was ordered, however ascites fluid tap was not enough. Will continue with third- generation cephalosporin and follow-up with treatment. Trend CMP, and hematology. Patient does have significant drinking history, 2-3 tall cans of 32 ounces of beer every day, last drink apparently was 2 days ago. Will initiate CIWA protocol at this time. Will initiate diuresis at this time with spironolactone and Lasix on top of midodrine to allow for blood pressure control. Patient did have elevated lactate dehydrogenase, unsure why this was elevated, will order peripheral blood smear for further evaluation but will hold off on anemia workup as patient does not have anemia at this time. #Acute decompensated liver cirrhosis #NSTEMI type II, likely related to demand ischemia #History of HFrEF #Alcohol withdrawal #Elevated liver enzymes #Coagulopathy #Hyperbilirubinemia #Meth abuse Zeyad Herman, PGY-2 Internal Medicine Documentation for date of: 01/18/25 HPI History of Present Illness History of present illness: 49 year old male with recent admission for sepsis 2/2 PNA and ADHF 2/2 PSUD, hx of pleural effusions, and chronic alcoholism, who presented to the Emergency Department with abdominal swelling for the past week, associated with nausea but no vomiting or diarrhea. He also reports dysuria. Upon initial evaluation with telephone lodging house keeper he endorses 2 weeks of worsening stomach pain making it almost unbearable to eat. He can only consume soup but that still hurts him. Endorses pain with eating. Describes it as 6/10 pain. Denies that pain radiates to back and confirms it only stays in the front of his abdomen, stating it is in the opening of his stomach. He reports ongoing nausea without vomiting. Endorses dark stools. Denies chest pain, SOB, fevers. Medical Hx: HFrEF (EF: 20-25%) Grade 2 diastolic disfunction, chronic alcoholism, Hx of sepsis 2/2 PNA, PSUD, pleural effusions, Medications: Lasix 20mg, Cefdinir Allergies: KNDA Surgical history: Thoracentesis, chest tube Fhx: Father , unsure why, Mom diabetes Soc Hx: Lives with sister, his 3 children live with their mother, he works as a [employer] operator Drugs: meth A-3 32 oz modelos/day Tobacco: denies In the ED he was tachypnic and tachycardic: 121/82, 120HR, 26 RR, 97.7T, 100%O2 on RA with leukocytosis: 11.5 WBC no left shift, hemoglobin normal, no thrombocytosis, no acute electrolyte abnormality, kidney function normal, patient with a T. bili of 2.9, transaminitis AST 464, ALT 457, alk phos normal troponin 0.58, BNP 2913. EKG sinus tachycardia, nonspecific T wave changes. Chest x-ray concerning for early heart failure. CTAP had impression of mild to moderate ascites, cystitis and thickening gallbladder wall. US abd showed an abnormal thickened gallbladder. UDS Meth +. Treated with Lasix 40 mg IV, Dilaudid 1 mg IV, Zofran 4 mg IV, Zosyn 3.375 g IV, Toradol 30 mg IV Patient admitted for acute decompensated liver failure. All 12 systems reviewed and were negative except otherwise stated in HPI. Exam Vital Signs Temp Pulse Resp BP Pulse Ox O2 Del Method O2 Flow Rate 98.5 F 102 H 18 109/77 95 Room Air 2 01/18/25 11:01/18/25 11:01/18/25 11:01/18/25 11:01/18/25 11:21 01/18/25 11:01/17/25 23:11 Narrative Exam GENERAL APPEARANCE: AOx3. Appears distressed, well developed/ well nourished, no cyanosis, pallor, or diaphoresis. HEENT: Normocephalic atraumatic, no facial trauma, neck is supple. Lids/conjunctiva normal. Mucous membranes moist, nares normal, lips/teeth normal uvula midline without oral pharyngeal erythema, exudate or swelling TMs normal bilaterally. No lymphangitis/lymphedema. No scleral icterus CARDIAC: Tachycardic Regular rhythm, no edema. No murmurs, rubs, or gallops noted RESPIRATORY: respiratory effort normal, speaks in full sentences, no tripod position, no accessory muscle use. Lungs clear to auscultation without rhonchi, wheezes, rales ABDOMINAL: NBS. Soft, Mild distension, diffusely TTP, most TTP in Right quadrants. No evidence of fluid wave. No pulsatile masses on exam, rebound tenderness, Negative Young sign, no pain over Mcburney's point. MUSCLES/EXTREMITIES: No abnormal range of motion, no swelling. No edema DERM: Warm, pink and dry. No rashes, dermatoses, petechiae or lesions. NEUROLOGICAL: Speech is clear and appropriate. Normal level of consciousness. Gait and coordination are normal. 5/5 strength in all extremities. PSYCH: Normal mood and affect. Judgement/competence is appropriate Results: Labs 01/17/25 15:02 01/17/25 15:02 Labs: Short CBC 01/17/25 Range/Units 15:02 WBC 11.5 H (3.8-10.6) Thou/mm3 Hgb 15.9 (13.5-16.0) g/dL Hct 47.9 (41.0-53.0) % Plt Count 315 (140-440) Thou/mm3 BMP 01/17/25 15:02 Sodium 136 Potassium 3.9 Chloride 102 Carbon Dioxide 22.5 BUN 15 Creatinine 1.2 Glucose 139 H Calcium 9.1 Cardiac Enzymes 01/17/25 01/17/25 Range/Units 15:02 21:27 Total Creatine Kinase 45 (34-171) U/L Troponin I 0.581 H* 0.547 H* (0.0-0.045) ng/mL Liver Function 01/17/25 01/17/25 Range/Units 15:02 21:27 Total Bilirubin 2.9 H (0.3-1.2) mg/dL Direct Bilirubin 1.2 H (0.0-0.3) mg/dL AST 464 H (0-34) U/L ALT 457 H (10-49) U/L Alkaline Phosphatase 95 (46-116) U/L Albumin 3.7 (3.5-5.0) gm/dL Urine 01/17/25 Range/Units 16:56 Urine Color Drk-Yellow A (Lt Yel-Yel) Urine Clarity Hazy (Clear/Hazy) Urine pH 6.0 (5.0-7.0) Ur Specific [place] 1.028 (1.001-1.035) Urine Protein 2+ A (Neg - Trace) Urine Glucose (UA) Negative (Negative) Quality Measures Quality Measures none Medications Home Medications and Allergies Allergies Allergy/AdvReac Type Severity Reaction Status Date / Time No Known Allergies Allergy Verified 01/17/25 14:29 Visit Medications Discontinued Medications Al Hydrox/Mg Hydrox/Simethicone (Mg Hyd/Al Hyd/Celine (Maalox Reg) Susp 30 Ml Udc) 30 ml PO X1 ONE Stop: 01/18/25 11:32 Last Admin: 01/18/25 12:10 Dose: 30 ml Furosemide (Furosemide Inj 10 Mg/Ml 4ml Vial) 40 mg IVP X1 ONE Stop: 01/18/25 04:33 Last Admin: 01/18/25 04:46 Dose: 40 mg Hydromorphone HCl (Hydromorphone Inj 2 Mg/Ml Vial) 1 mg IVP X1 ONE Stop: 01/17/25 21:02 Last Admin: 01/17/25 22:47 Dose: 1 mg Piperacillin/Tazobactam/Dextrose (Zosyn) 3.375 gm in 50 mls @ 100 mls/hr IV X1 ONE Stop: 01/17/25 21:33 Last Infusion: 01/17/25 22:10 Dose: Infused Ketorolac Tromethamine (Ketorolac Inj 30 Mg/Ml Vial) 30 mg IVP X1 ONE Stop: 01/17/25 21:02 Last Admin: 01/17/25 21:36 Dose: 30 mg Ondansetron HCl (Ondansetron Inj 2 Mg/Ml Inj 2 Ml) 4 mg IVP X1 ONE; Protocol Stop: 01/17/25 21:02 Last Admin: 01/17/25 21:34 Dose: 4 mg Assessment & Plan Plan 49 year old male with recent admission for sepsis 2/2 PNA and ADHF 2/2 PSUD, hx of pleural effusions, and chronic alcoholism, who presented to the Emergency Department with abdominal swelling for the past week, associated with nausea but no vomiting or diarrhea. Patient admitted for acute decompensated liver failure. #Decompensated liver failure #Cirrhosis #Transaminitis P/w abdominal pain and ascites. Chronic alcoholism. No signs of jaundice or scleral icterus, no asterixis, no encephalopathy. Fluid wave negative. PT: 16.7 INR: 1.6, AST: 464, ALT: 457. Direct Bilirubin: 1.2. LDH: 618, CTAP: mild to moderate ascites. Attempted paracentesis but per rads not enough fluid to drain. Plan: -Ceftriaxone 1g IV QD -Lasix 40mg IV QD -Spironolactone 100 mg PO QD (hold if BP <100 systolic, diastolic <60) -Midodrine 5mg PO TID -Zofran 4mg IVP Q6H PRN -Strict Is/Os -Daily weights -SCDs -IV NS #NSTEMI I vs II #Acute decompensated heart failure 2/2 #meth use Hx of ECHO 03/2024 EF: 20-25%. Denies chest pain, SOB, and palpitations, endorses stomach pain. EKG L anterior fasicular block, ST-T wave changes. Meth+, Troponins resolved. BNP: 485. D-dimer: 2059. CXR: vascular congestion and early signs of HF. Most likely NSTEMI II in setting of demand ischemia due to meth use. Plan: -ECHO -Monitor for worsening signs of HF -Admit to tele #Melena #Upper vs Lower GI bleed ddx; Upper (abdominal pain, hx of alcoholism PUD likely) vs lower GI bleed( dark red blood, no bright streaks in stool), vs esophageal varices (less likely due to no bright red blood). Dark tarry stool. No hemoptysis on exam. Normal hemoglobin Plan: -FOBT FUP -Consider consulting GI #Chronic alcoholism #CIWA Patient drinks 32 Oz Modelos 2x/day Plan: -CIWA protocols in place Health Maintenance: DVT prophylaxis: SCDs Diet: Cardiac Hernandez: None Lines: PIV Supplemental O2: Nasal cannula CODE STATUS: Full Disposition: Admitted to tele floors for Decompensated liver failure and ADHF 2/2 meth use Patient seen and reviewed with attending Dr. Ernandez and supervising resident Dr. Herman. Note written by Anton Baker MD PGY-1 Attending Provider Attestation/Addendum After examination of the patient and review of the clinical data I feel that this patient needs admission to the hospital for further treatment/evaluation. I have discussed and was present for the essential components of the history, physical examination, diagnosis, and treatment plan with the resident. I agree with the patient's care as documented by the resident and amended herein by me. Isai Ernandez, DO. Although this document has been carefully reviewed, there may still be some phonetic and other typographical errors. These errors are purely grammatical due to imperfections in the software program and should not be construed in any way to compromise the substance of the patient's medical care during this visit. Patient seen and evaluated in the ED. The patient is a 49-year-old male with a significant past medical history of HFrEF with an EF of 25%, polysubstance abuse, alcohol abuse, empyema, and GI bleed, who presented to the ED for abdominal pain and swelling which began approximately 1 week prior to visit to the ED. Denies any vomiting, diarrhea, nausea, chest pain, dysuria etc. Patient has an extensive alcohol history, drinking approximately three 32 ounce bottles of beer a day he did apparently endorse some blood in his stools as well. Patient subsequently admitted for acute decompensated liver failure and NSTEMI. In the ED, vital signs are stable, patient was afebrile, on room air, SpO2 98%, significant labs include a normal hemoglobin and normal WBC, INR slightly elevated 1.6, U tox positive for meth, liver enzymes were elevated, AST 464 ALT 457, T. bili 2.9. Troponins were initially elevated however started to downtrend, last measurement was 0.547. MRCP was performed in the ED, demonstrating moderate ascites and liver cirrhosis. The patient was given a dose of Zosyn in the ED as well as Lasix, Dilaudid and ketorolac. Blood cultures also drawn and pending. Patient subsequently admitted to telemetry for acute decompensated liver cirrhosis, NSTEMI, likely type II, elevated liver enzymes and abdominal pain with possible GI bleed. Paracentesis was ordered however not enough ascites fluid was present to be drained. Due to the patient's abdominal pain however ceftriaxone was started for any potential for SBP or possible cholecystitis. Patient will also be started on spironolactone and Lasix for his ascites although minimal at this time. An echocardiogram was also ordered since his last echo was in March 2024 measuring a severely dilated left ventricle, severe systolic dysfunction, severe hypokinesis and grade 2 diastolic dysfunction with an estimated EF of 20 to 25%. A stool occult blood was also ordered, possible GI consult depending on FOBT results. Patient also started on Protonix 40 mg twice daily after a bolus as well as octreotide drip until GI bleed ruled out. Will continue to monitor closely while he is here.
--- NOTE | 2025-01-18 13:39 | PC.CC ---
Patient is a 49 year-old male who presents to the hospital for ABD, Pain and Bloating. MIX HOUSE OPERATORKylee made [id number] contact with patient introduced self, role, and reason for visit. Patient appeared alert and oriented to self, location, and situation. MIX HOUSE OPERATOR, discussed limits of confidentiality. Patient made appropriate eye contact and engaged in initial assessment. Patient confirmed information on demographics and reports that in the event he is unable to make his own medical decisions his medical decision maker is his , Jaci Blankenship. Patient reports at home he ambulates independently and is able to complete his own ADLs. Patient does not require any DME at home. Patient receives primary care at [facility] on [address] His pharmacy of choice is [facility]. Upon discharge patient plans to return home. program services assistant to follow up with any discharge needs.
--- NOTE | 2025-01-18 14:46 | ECHO_ITS ---
Transthoracic Echo Report Ht (in): 68 Wt (lb): 132 Exam Location: Echo Lab Status: Inpatient Family Lawyer: Archana Sebastian Indications: Procedure Performed: BP: 148 / 112 HR: 120 Technical Quality: Fair MEASUREMENTS (Male / Female) Normal Values 2D ECHO LV Diastolic Diameter PLAX 6.8 cm 4.2 - 5.9 / 3.9 - 5.3 cm LV Systolic Diameter PLAX 6.1 cm IVS Diastolic Thickness 0.9 cm 0.6 - 1.0 / 0.6 - 0.9 cm LVPW Diastolic Thickness 1.0 cm 0.6 - 1.0 / 0.6 - 0.9 cm LV Relative Wall Thickness 0.3 LVOT Diameter 1.5 cm Aortic Root Diameter 2.9 cm LA Systolic Diameter LX 3.4 cm 3.0 - 4.0 / 2.7 - 3.8 cm LV Ejection Fraction MOD BP 14.8 % >= 55 % LV Cardiac Index MOD BP 1705.1 cm?/min?m? LV Ejection Fraction MOD 4C 21.9 % LV Cardiac Index MOD 4C 2841.8 cm?/min?m? LV Ejection Fraction 4C AL 21.1 % LV Cardiac Index 4C AL 2836.8 cm?/min?m? LV Ejection Fraction MOD 2C 9.9 % LV Cardiac Index MOD 2C 994.6 cm?/min?m? LV Ejection Fraction 2C AL 8.4 % LV Cardiac Index 2C AL 860.1 cm?/min?m? LA Volume Index 53.2 cm?/m? 16 - 28 cm?/m? M-MODE Aortic Root Diameter MM 2.6 cm LA Systolic Diameter MM 4.3 cm LA Ao Ratio MM 1.7 AV Cusp Separation MM 1.7 cm DOPPLER AV Peak Velocity 80.8 cm/s AV Peak Gradient 2.6 mmHg AV Mean Gradient 1.0 mmHg AV Velocity Time Integral 13.9 cm LVOT Peak Velocity 62.9 cm/s LVOT Peak Gradient 1.6 mmHg LVOT Velocity Time Integral 8.8 cm LVOT Cardiac Index 1104.8 cm?/min?m? AV Area Cont Eq vti 1.1 cm? AV Area Cont Eq pk 1.4 cm? MV Area PHT 8.1 cm? MR Peak Velocity 444.0 cm/s MR Peak Gradient 78.9 mmHg Mitral E Point Velocity 120.0 cm/s Mitral A Point Velocity 33.8 cm/s Mitral E to A Ratio 3.6 LV E' Lateral Velocity 8.1 cm/s Mitral E to LV E' Lateral Ratio 14.9 LV E' Septal Velocity 5.7 cm/s Mitral E to LV E' Septal Ratio 21.2 TR Peak Velocity 292.0 cm/s TR Peak Gradient 34.1 mmHg PV Peak Velocity 69.2 cm/s PV Peak Gradient 1.9 mmHg FINDINGS Left Ventricle The left ventricular cavity size is moderately increased. Normal left ventricular diastolic filling pattern for age. The ejection fraction is visually estimated at 15-20 %. Global left ventricular systolic function is severely decreased. Right Ventricle The right ventricular size is mildy increased. The right ventricular systolic function is moderately decreased. The estimated right ventricular systolic pressure, 46 mmHg. RAP 5. Left Atrium Severely increased left atrial volume 53.2 mL/m?. Right Atrium The right atrium is normal by two-dimensional imaging, color flow and Doppler imaging with no structural abnormalities, no thrombus formation present. Atrial Septum The interatrial septum appears normal with no evidence of a shunt. Aorta The aorta is normal by two-dimensional, color flow and Doppler interrogation. Mitral Valve The mitral valve is normal by two-dimensional, color flow and Doppler interrogation. Moderate mitral regurgitation. Aortic Valve The aortic valve is trileaflet and normal by two-dimensional, color flow and Doppler interrogation. There is no significant aortic valve regurgitation. Tricuspid Valve The tricuspid valve is normal by two-dimensional, color flow and Doppler interrogation. There is mild to moderate tricuspid valve regurgitation. Pulmonic Valve Trivial pulmonic valve regurgitation. Vessels The pulmonary artery appears normal. The inferior vena cava pulmonary and hepatic veins appear normal. Pericardium The pericardium is normal by two-dimensional imaging. There is no significant pericardial effusion. CONCLUSIONS Indication: HFrEF Moderateto severely dilated LV. Severe systolic dysfunction with severe global hypokinesis. Grade II diastolic dysfucntion. Estimated EF 15-20%. Mildly dilated RV. Mild RV dysfunction. Moderately elevated estimated RVSP, 46 mmHg. RAP 5. Moderate MR. Mild to moderate TR. Trivial PI. Pleural effusion present. Severely dilalated LA with volume 53.2 mL/m?. Small pericardial effusion unchanged from before. No evidence of cardiac tamponade. Chidi Osborne (Electronically Signed) Final Date: 20 January 2025 12:49
[2025-01-18] MEDS: SODIUM CHLORIDE 0.9% 1000 ML 1,000 ML 75 ML IV (15:16)
[2025-01-18] MEDS: cefTRIAXone/D5w 1gm IV premix 1 GM/50 ML BAG IV (15:16)
[2025-01-18] MEDS: MIDODRINE 5 MG TABLET PO (16:44)
[2025-01-18] MEDS: ACETAMINOPHEN 325 MG TABLET 650 MG PO (18:36)
--- NOTE | 2025-01-18 18:38 | PC.NURSE ---
called pharmacy about octeroide med fe said they will bring the med.
[2025-01-18] MEDS: OCTREOTIDE ACET INJ 1,000 MCG in SODIUM CHLORIDE 0.9% 100 ML 5.1 MCG IV (19:49)
[2025-01-18] MEDS: OCTREOTIDE ACET INJ 50 mCg/ML VIAL IV (19:49)
--- NOTE | 2025-01-18 21:25 | PD.IMCONS ---
HPI Data of Consult Requesting Physician: Zeyad Herman MD Primary Care Provider: Ashu Holcomb MD Consult Narrative Reason for consult: Hematemesis, melena History of present illness: 49 years old male admitted to the internal medicine services for episodes of hematemesis and melanotic stools with an elevated troponin at 0.547 CT scan of the abdomen pelvis without contrast showed cirrhotic liver disease moderate ascites thickened gallbladder wall MRCP negative Gallbladder ultrasound is also negative save for ascites Patient has a total bilirubin of 1.2 AST ALT 464 and 457 and alk phos of 95 Patient does drink alcohol on a regular basis cc:: cc: Zeyad Herman MD Review of Systems Review of Systems Systems Reviewed: All systems reviewed, normal except as documented Meds Home Medications and Allergies Home Medications ?Medication ?Instructions ?Recorded ?Confirmed ?Type furosemide 40 mg tablet 40 mg PO QDAY 01/18/25 01/18/25 History metoprolol succinate 25 mg 12.5 mg PO QDAY 01/18/25 01/18/25 History tablet,extended release 24 hr Allergies Allergy/AdvReac Type Severity Reaction Status Date / Time No Known Allergies Allergy Verified 01/17/25 14:29 Exam Vital Signs Temp Pulse Resp BP Pulse Ox O2 Del Method O2 Flow Rate 98.3 F 106 H 16 106/73 96 Room Air 2 01/18/25 20:00 01/18/25 20:00 01/18/25 20:00 01/18/25 20:00 01/18/25 20:00 01/18/25 20:00 01/17/25 23:11 Constitutional Comments: Chronically ill-appearing Routine Respiratory Exam Comments: Normal to auscultation Routine Abdominal Exam Comments: Soft nontender positive ascites Results Labs 01/17/25 15:02 01/17/25 15:02 Labs: Cardiac Enzymes 01/17/25 Range/Units 21:27 Total Creatine Kinase 45 (34-171) U/L Troponin I 0.547 H* (0.0-0.045) ng/mL Liver Function 01/17/25 Range/Units 21:27 Direct Bilirubin 1.2 H (0.0-0.3) mg/dL Assessment and Plan Additional Assessment & Plan Additional Plan: # Hematemesis # Melena # Chronic liver disease decompensated with cirrhosis advanced portal hypertension and ascites Plan N.p.o. midnight tonight Serial CBC Octreotide 50 mcg/h continuous infusion after loading dose of 50 mcg IV Protonix Consent obtained for fiberoptic esophagogastroduodenoscopy with possible biopsy possible therapeutic intervention under intravenous moderate sedation Advised complete abstinence from drugs and alcohol Prognosis guarded Agree with Zosyn coverage Will follow the patient Thank you very much for the opportunity to participate in care of this patient Other medical problems include Elevated troponin Chronic liver disease secondary to alcohol with negative MRCP
[2025-01-19] VITALS (23 sets, daily range): BP systolic 102–148; BP diastolic 77–120; PULSE 94–125; RESP 10–98; TEMP 36.1–36.4; O2SAT 94–100; BMI 20.9
[2025-01-19] MEDS: SODIUM CHLORIDE 0.9% 1000 ML 1,000 ML 75 ML IV ×2 (04:33→20:03)
[2025-01-19 06:27] LABS: Basophils # (Auto) 0.1 Thou/mm3 (0.0-0.2); Basophils % (Auto) 1 % (0-2.5); Eosinophils # (Auto) 0.5 Thou/mm3 (0.0-0.5); Eosinophils % (Auto) 6 % (0-10); Hematocrit 44.6 % (41.0-53.0); Hemoglobin 14.6 g/dL (13.5-16.0); Immature Granulocytes Auto 0.02 Thou/mm3 (0.00-0.00); Lymphocytes # (Auto) 2.5 Thou/mm3 (1.0-4.8); Lymphocytes % (Auto) 34 % (10-50); Mean Corpuscular HGB Conc 32.7 g/dl (31.0-37.0); Mean Corpuscular Hemoglobin 30.7 pg (25.0-35.0); Mean Corpuscular Volume 94 fL (80-100); Monocytes # (Auto) 1.0 Thou/mm3 (0.0-0.8); Monocytes % (Auto) 14 % (0-12); Neutrophils # (Auto) 3.2 Thou/mm3 (1.8-7.7); Neutrophils % (Auto) 44 % (37-80); Nucleated Red Blood Cell # 0.00 Thou/mm3 (0.00-0.00); Nucleated Red Blood Cell % 0 /100 WBC (0); Platelet Count 251 Thou/mm3 (140-440); RDW Standard Deviation 55.3 fL (35.1-43.9); Red Blood Count 4.76 Miln/mm3 (4.50-5.90); White Blood Count 7.4 Thou/mm3 (3.8-10.6)
[2025-01-19 07:02] LABS: Alanine Aminotransferase 338 U/L (10-49); Albumin, Serum 3.1 gm/dL (3.5-5.0); Albumin/Globulin Ratio 1.1 (1.2-2.2); Alkaline Phosphatase 87 U/L (46-116); Anion Gap 12 (7-16); Aspartate Amino Transferase 239 U/L (0-34); BUN/Creatinine Ratio 11 Ratio (12-20); Bilirubin,Total 1.9 mg/dL (0.3-1.2); Blood Urea Nitrogen 14 mg/dL (9-23); Calcium 8.5 mg/dL (8.3-10.6); Calcium (Corrected) 9.2 mg/dL (8.5-10.1); Carbon Dioxide 25.6 mMol/L (20.0-31.0); Chloride 102 mMol/L (98-107); Creatinine (Component) 1.3 mg/dL (0.6-1.3); Estimated Creatinine Clearance 60.3 mL/min (>60); Globulin 2.9 gm/dL (2.3-3.5); Glucose 76 mg/dL (74-106); Magnesium 1.9 mg/dL (1.6-2.6); Osmolality,Calculated 278 (275-295); Phosphorous 4.0 mg/dL (2.4-5.1); Potassium 3.9 mMol/L (3.4-5.1); Sodium 140 mMol/L (136-145); Total Protein 6.0 gm/dL (5.7-8.2); eGFR > 60 See Note
[2025-01-19 08:04] LABS: Path Review Blood Smear Sent to Pathologist
--- NOTE | 2025-01-19 10:25 | ESPR_ITS ---
<Statement entered by Jaky Leung MD - 01/19/25 17:04> Patient was seen and examined at bedside. Noticed to have 1 bottle of 4 that grew GPC most likely contamination, today noticed that his serum creatinine increased from 0.7-1.8, will continue to monitor, patient is pending EGD today by ,. Currently on pantoprazole and octreotide. We consulted cardiology as the patient has HFrEF with ejection fraction of 20 to 25%. As of now patient is still not on goal directed medical therapy pending supposition of other comorbidities. He is saturating well on room air. - Patient's plan and care discussed with my attending, Dr. Oma Leung MD Internal Medicine PGY-3 Documentation for date of: 01/19/25 Subjective Subjective Interval history: Patient examined bedside with telephone language interpreter. Planning for EGD today. Reports doing well, improved abdominal pain, but is still in abdominal discomfort. Patient is hungry. Denies SOB, chest pain, NV, fevers chills night sweats. Exam Vital Signs Temp Pulse Resp BP Pulse Ox O2 Del Method O2 Flow Rate 97.1 F 102 H 17 120/95 H 96 Room Air 2 01/19/25 08:00 01/19/25 09:01 01/19/25 09:01 01/19/25 08:00 01/19/25 08:00 01/19/25 08:00 01/17/25 23:11 Narrative Exam GENERAL APPEARANCE: AOx3. NAD, well developed/ well nourished, no cyanosis, pallor, or diaphoresis. HEENT: Normocephalic atraumatic, no facial trauma, neck is supple. Lids/conjunctiva normal. Mucous membranes moist, nares normal, lips/teeth normal uvula midline without oral pharyngeal erythema, exudate or swelling TMs normal bilaterally. No lymphangitis/lymphedema. No scleral icterus CARDIAC: Tachycardic Regular rhythm, no edema. No murmurs, rubs, or gallops noted RESPIRATORY: respiratory effort normal, speaks in full sentences, no tripod position, no accessory muscle use. Lungs clear to auscultation without rhonchi, wheezes, rales ABDOMINAL: NBS. Soft, Mild distension, diffusely TTP, most TTP in Right quadrants. No evidence of fluid wave. No pulsatile masses on exam, rebound tenderness, Negative Young sign, no pain over Mcburney's point. MUSCLES/EXTREMITIES: No abnormal range of motion, no swelling. No edema DERM: Warm, pink and dry. No rashes, dermatoses, petechiae or lesions. NEUROLOGICAL: Speech is clear and appropriate. Normal level of consciousness. Gait and coordination are normal. 5/5 strength in all extremities. PSYCH: Normal mood and affect. Judgement/competence is appropriate Objective Labs 01/19/25 06:04 01/19/25 06:04 Labs: Laboratory Results - last 24 hr 01/19/25 06:04 WBC 7.4 RBC 4.76 Hgb 14.6 Hct 44.6 MCV 94 MCH 30.7 MCHC 32.7 RDW Std Deviation 55.3 H Plt Count 251 D Neut % (Auto) 44 Lymph % (Auto) 34 Glasscock % (Auto) 14 H Eos % (Auto) 6 Baso % (Auto) 1 Neut # (Auto) 3.2 Lymph # (Auto) 2.5 Glasscock # (Auto) 1.0 H Eos # (Auto) 0.5 Baso # (Auto) 0.1 Immature Gran # (Auto) 0.02 H Absolute Nucleated RBC 0.00 Immature Gran % 0 Nucleated RBC % 0 Smear Path Review Sent to Pathologist Sodium 140 Potassium 3.9 Chloride 102 Carbon Dioxide 25.6 Anion Gap 12 BUN 14 Creatinine 1.3 Estim Creat Clear Calc 60.3 L eGFR > 60 BUN/Creatinine Ratio 11 L Glucose 76 D Calculated Osmolality 278 Calcium 8.5 Corrected Calcium 9.2 Phosphorus 4.0 Magnesium 1.9 Total Bilirubin 1.9 H D AST 239 H ALT 338 H Alkaline Phosphatase 87 Total Protein 6.0 Albumin 3.1 L D Globulin 2.9 Albumin/Globulin Ratio 1.1 L Quality Measures Quality Measures none Assessment & Plan Assessment Current Active Medications: Generic Name Dose Route Start Last Admin Trade Name Freq PRN Reason Stop Dose Admin Acetaminophen 650 mg 01/18/25 14:36 01/18/25 18:36 Acetaminophen 325 Mg Tablet PO 02/17/25 14:35 650 mg Q6H PRN Administration Fever >101.5 Diazepam 5 mg 01/18/25 17:10 Diazepam Inj 5 Mg/Ml Vial 2 Ml IVP X1 PRN Breakthrough Agitation Sodium Chloride 1,000 mls @ 75 mls/hr 01/18/25 14:45 01/19/25 04:33 Ns IV 02/17/25 14:44 75 mls/hr .[id number] WILL Administration Ceftriaxone Sodium/Dextrose 1 gm in 50 mls @ 100 mls/hr 01/19/25 09:00 Rocephin/D5w 1gm Iv Premix IV 01/26/25 08:59 QDAY WILL Octreotide Acetate 1,000 mcg/ 102 mls @ 5.1 mls/hr 01/18/25 18:10 01/18/25 19:49 Sodium Chloride IV 01/23/25 18:10 50 mcg/hr .Q20H WILL 5.1 mls/hr Administration Protocol 50 MCG/HR Lorazepam 0.5 mg 01/18/25 17:10 Lorazepam 0.5 Mg Tablet PO 01/23/25 17:09 Q4HR PRN CIWA Score 2-6 Lorazepam 1 mg 01/18/25 17:10 01/18/25 22:38 Lorazepam 0.5 Mg Tablet PO 01/23/25 17:09 1 mg Q4HR PRN Administration CIWA SCORE 7-11 Lorazepam 2 mg 01/18/25 17:10 Lorazepam 0.5 Mg Tablet PO 01/23/25 17:09 Q4HR PRN CIWA SCORE 12-15 Ondansetron HCl 4 mg 01/18/25 14:36 Ondansetron Inj 2 Mg/Ml Inj 2 Ml IVP 02/17/25 14:35 Q6H PRN NAUSEA OR VOMITING Protocol Pantoprazole Sodium 40 mg 01/18/25 21:00 01/18/25 20:05 Pantoprazole Inj 40 Mg Vial IVP 02/17/25 20:59 40 mg BID WILL Administration Plan 49 year old male with recent admission for sepsis 2/2 PNA and ADHF 2/2 PSUD, hx of pleural effusions, and chronic alcoholism, who presented to the Emergency Department with abdominal swelling for the past week, associated with nausea but no vomiting or diarrhea. Patient admitted for acute decompensated liver failure. EGD done today. #Decompensated liver failure #Cirrhosis #Transaminitis P/w abdominal pain and ascites. Chronic alcoholism. No signs of jaundice or scleral icterus, no asterixis, no encephalopathy. Fluid wave negative. PT: 16.7 INR: 1.6, AST: 464, ALT: 457. Direct Bilirubin: 1.2. LDH: 618, CTAP: mild to moderate ascites. Attempted paracentesis but per rads not enough fluid to drain. Plan: -Ceftriaxone 1g IV QD -Lasix 40mg IV QD - Hold due to MARQUITA(creatinine 1.3) -Spironolactone 100 mg PO QD (hold if BP <100 systolic, diastolic <60) -Midodrine 5mg PO TID -DC'd (BP too low) -Octreotide drip 1000mcg IV 50mcg/hr -Zofran 4mg IVP Q6H PRN -Strict Is/Os -Daily weights -SCDs -IV NS -Hep B panel FUP -HIV panel FUP #NSTEMI I vs II #Acute decompensated heart failure 2/2 #meth use Hx of ECHO 03/2024 EF: 20-25%. Denies chest pain, SOB, and palpitations, endorses stomach pain. EKG L anterior fasicular block, ST-T wave changes. Meth+, Troponins resolved. BNP: 485. D-dimer: 2059. CXR: vascular congestion and early signs of HF. Most likely NSTEMI II in setting of demand ischemia due to meth use. Plan: -ECHO -Monitor for worsening signs of HF -Admit to tele #Melena #Upper vs Lower GI bleed ddx; Upper (abdominal pain, hx of alcoholism PUD likely) vs lower GI bleed( dark red blood, no bright streaks in stool), vs esophageal varices (less likely due to no bright red blood). Dark tarry stool. No hemoptysis on exam. Normal hemoglobin Plan: -FOBT FUP -GI consulted -EGD FUP: #Chronic alcoholism #CIWA Patient drinks 32 Oz Model[place] 2x/day Plan: -CIWA protocols in place Health Maintenance: DVT prophylaxis: SCDs Diet: Cardiac Hernandez: None Lines: PIV Supplemental O2: Nasal cannula CODE STATUS: Full Disposition: Admitted to tele floors for Decompensated liver failure and ADHF 2/2 meth use Patient seen and reviewed with attending Dr. Ernandez and supervising resident Dr. Leung. Note written by Anton Baker MD PGY-1 Attending Provider Attestation/Addendum I have discussed and was present for the essential components of the history, physical examination, diagnosis, and treatment plan with the resident. I agree with the patient's care as documented by the resident and amended herein by me. Isai Ernandez DO. Although this document has been carefully reviewed, there may still be some phonetic and other typographical errors. These errors are purely grammatical due to imperfections in the software program and should not be construed in any way to compromise the substance of the patient's medical care during this visit. Patient seen and evaluated this AM. No acute events overnight, patient subsequently admitted for GI bleed, NSTEMI, MARQUITA, alcohol intoxication, abdominal pain and acute decompensated liver cirrhosis. EGD pending later today, initial blood cultures demonstrating gram-positive rods x 1 set, repeat blood cultures pending. HIV negative, hepatitis panel pending, MRCP was performed demonstrating cirrhosis. Will continue octreotide and pantoprazole as well as ceftriaxone for now, appreciate specialist recommendations.
[2025-01-19] MEDS: cefTRIAXone/D5w 1gm IV premix 1 GM/50 ML BAG IV (10:30)
[2025-01-19 12:10] LABS: HIV (1&2) Antibody Rapid Non-Reactive
[2025-01-19] MEDS: OCTREOTIDE ACET INJ 1,000 MCG in SODIUM CHLORIDE 0.9% 100 ML 5.1 MCG IV (13:36)
--- NOTE | 2025-01-19 15:34 | PC.SS ---
1524-per afternoon rounding note, pt is a GI pt, EGD by Dr. Palmer will happen either today or tomorrow. No d/c date at this time.
--- NOTE | 2025-01-19 16:43 | SUR.PHASEI ---
1516 patient arrived to recovery room bay 5 s/p EGD, not responding to painful stimuli, shallow breathing, dr kemp at bedside, 28fr nasal airway inserted to right nare, breathing improved, oxygen delivery changed from nasal canula 5L to oxymask 15L. 1533 Dr. Kemp at bedside, aware of current vital signs, no new orders received at this time 1535 patient now arousable, BP 111/89, HR 107, no need for medication intervention at this time. 1541 patient sleepy and arousable to name, breathing unlabored, nasal airway removed. 1545 Oxygen decreased from 15L to 8L oxymask 1608 oxymask removed, patient placed in nasal cannula 1626 patient is sleepy and arousable, breathing unlabored, able to follow verbal commands. Patient drank sips of water and had no difficulty swallowing, no nausea or vomiting, report given to Candis RN, patient transferred back to room 272 with tele box.
[2025-01-19] MEDS: METOCLOPRAMIDE INJ 5 MG/ML VIAL 2 ML IVP ×2 (18:19→23:15)
[2025-01-19] MEDS: SIMETHICONE 80 MG CHEW PO (23:15)
[2025-01-19] MEDS: HYDROcodone/APAP 5/325 TABLET 1 TAB PO (23:41)
[2025-01-20] VITALS (13 sets, daily range): BP systolic 94–133; BP diastolic 67–94; PULSE 70–120; RESP 12–97; TEMP 35.9–36.9; O2SAT 89–100; BMI 21.7
[2025-01-20] MEDS: METOCLOPRAMIDE INJ 5 MG/ML VIAL 2 ML IVP ×4 (05:54→23:33)
[2025-01-20 06:19] LABS: Basophils # (Auto) 0.1 Thou/mm3 (0.0-0.2); Basophils % (Auto) 1 % (0-2.5); Eosinophils # (Auto) 0.3 Thou/mm3 (0.0-0.5); Eosinophils % (Auto) 3 % (0-10); Hematocrit 48.5 % (41.0-53.0); Hemoglobin 15.9 g/dL (13.5-16.0); Immature Granulocytes Auto 0.03 Thou/mm3 (0.00-0.00); Lymphocytes # (Auto) 4.5 Thou/mm3 (1.0-4.8); Lymphocytes % (Auto) 43 % (10-50); Mean Corpuscular HGB Conc 32.8 g/dl (31.0-37.0); Mean Corpuscular Hemoglobin 30.6 pg (25.0-35.0); Mean Corpuscular Volume 93 fL (80-100); Monocytes # (Auto) 1.1 Thou/mm3 (0.0-0.8); Monocytes % (Auto) 11 % (0-12); Neutrophils # (Auto) 4.4 Thou/mm3 (1.8-7.7); Neutrophils % (Auto) 42 % (37-80); Nucleated Red Blood Cell # 0.00 Thou/mm3 (0.00-0.00); Nucleated Red Blood Cell % 0 /100 WBC (0); Platelet Count 297 Thou/mm3 (140-440); RDW Standard Deviation 56.1 fL (35.1-43.9); Red Blood Count 5.19 Miln/mm3 (4.50-5.90); White Blood Count 10.4 Thou/mm3 (3.8-10.6)
[2025-01-20 06:50] LABS: Alanine Aminotransferase 316 U/L (10-49); Albumin, Serum 3.7 gm/dL (3.5-5.0); Albumin/Globulin Ratio 1.2 (1.2-2.2); Alkaline Phosphatase 89 U/L (46-116); Anion Gap 13 (7-16); Aspartate Amino Transferase 183 U/L (0-34); BUN/Creatinine Ratio 14 Ratio (12-20); Bilirubin,Total 1.3 mg/dL (0.3-1.2); Blood Urea Nitrogen 17 mg/dL (9-23); Calcium 9.1 mg/dL (8.3-10.6); Calcium (Corrected) 9.3 mg/dL (8.5-10.1); Carbon Dioxide 23.6 mMol/L (20.0-31.0); Chloride 102 mMol/L (98-107); Creatinine (Component) 1.2 mg/dL (0.6-1.3); Estimated Creatinine Clearance 67.4 mL/min (>60); Globulin 3.0 gm/dL (2.3-3.5); Glucose 98 mg/dL (74-106); Magnesium 2.1 mg/dL (1.6-2.6); Osmolality,Calculated 279 (275-295); Phosphorous 3.7 mg/dL (2.4-5.1); Potassium 3.8 mMol/L (3.4-5.1); Sodium 139 mMol/L (136-145); Total Protein 6.7 gm/dL (5.7-8.2); eGFR > 60 See Note
--- NOTE | 2025-01-20 09:35 | PC.NURSE ---
Dr. Elizondo came by to see patient. Informed that patient has been having very cold upper and lower extremities.
--- NOTE | 2025-01-20 09:57 | ESPR_ITS ---
<Statement entered by Jaky Leung MD - 01/20/25 16:03> Patient was seen and examined at bedside. Patient reported mild abdominal discomfort. Most likely secondary to SBP. Patient already on ceftriaxone 1 g IV daily. Currently patient on octreotide drip, spironolactone, strict in and out a fluid restriction to 1200 cc. Echocardiogram was done and showed ejection fraction of 15 to 20%. Consultation to the cardiology team was ordered pending recommendations. Will give the patient 1 dose of Lasix 40 mg IV, will continue to close observation. Spoke with the sister she informed me that patient was supposed to have ICD however it was not granted secondary to insurance issues however on questioning she reported that at that time he was still using methamphetamine. She mentioned that he was prescribed a LifeVest however he was not consistent and they have to handed back. I informed the family that his prognosis remains guarded wall continue treatment as per the specialist recommendations. Yesterday he had an EGD was done and showed grade 1 esophageal varices. GI recommendation to continue patient on octreotide for 24 hours. - Patient's plan and care discussed with my attending, Dr. Oma Leung MD Internal Medicine PGY-3 Documentation for date of: 01/20/25 Subjective Subjective Interval history: SOB overnight, night team stopped D5 drip 50cc. +1600 I/Os 24 hrs. EGD yesterday showed esophageal varices. Due to low BP diuretics were held yesterday. Today patient had event of SOB and ongong GI discomfort. No other complaints. Exam Vital Signs Temp Pulse Resp BP Pulse Ox O2 Del Method O2 Flow Rate 98 F 108 H 16 114/94 H 100 Nasal Cannula 3 01/20/25 07:58 01/20/25 07:58 01/20/25 07:58 01/20/25 07:58 01/20/25 07:58 01/20/25 07:58 01/20/25 07:58 Narrative Exam GENERAL APPEARANCE: AOx3. NAD, well developed/ well nourished, no cyanosis, pallor, or diaphoresis. HEENT: Normocephalic atraumatic, no facial trauma, neck is supple. Lids/conjunctiva normal. Mucous membranes moist, nares normal, lips/teeth normal uvula midline without oral pharyngeal erythema, exudate or swelling TMs normal bilaterally. No lymphangitis/lymphedema. No scleral icterus CARDIAC: Tachycardic Regular rhythm, no edema. No murmurs, rubs, or gallops noted RESPIRATORY: respiratory effort normal, speaks in full sentences, no tripod position, no accessory muscle use. Lungs clear to auscultation without rhonchi, wheezes, rales ABDOMINAL: NBS. Soft, Mild distension, diffusely TTP, most TTP in Right quadrants. No evidence of fluid wave. No pulsatile masses on exam, rebound tenderness, Negative Young sign, no pain over Mcburney's point. MUSCLES/EXTREMITIES: No abnormal range of motion, no swelling. No edema DERM: Warm, pink and dry. No rashes, dermatoses, petechiae or lesions. NEUROLOGICAL: Speech is clear and appropriate. Normal level of consciousness. Gait and coordination are normal. 5/5 strength in all extremities. PSYCH: Normal mood and affect. Judgement/competence is appropriate Objective Labs 01/20/25 04:36 01/20/25 04:36 Labs: Laboratory Results - last 24 hr 01/19/25 01/20/25 06:04 04:36 WBC 10.4 D RBC 5.19 Hgb 15.9 Hct 48.5 MCV 93 MCH 30.6 MCHC 32.8 RDW Std Deviation 56.1 H Plt Count 297 D Neut % (Auto) 42 Lymph % (Auto) 43 [place] % (Auto) 11 Eos % (Auto) 3 Baso % (Auto) 1 Neut # (Auto) 4.4 Lymph # (Auto) 4.5 [place] # (Auto) 1.1 H Eos # (Auto) 0.3 Baso # (Auto) 0.1 Immature Gran # (Auto) 0.03 H Absolute Nucleated RBC 0.00 Immature Gran % 0 Nucleated RBC % 0 Sodium 139 Potassium 3.8 Chloride 102 Carbon Dioxide 23.6 Anion Gap 13 BUN 17 Creatinine 1.2 Estim Creat Clear Calc 67.4 eGFR > 60 BUN/Creatinine Ratio 14 Glucose 98 Calculated Osmolality 279 Calcium 9.1 Corrected Calcium 9.3 Phosphorus 3.7 Magnesium 2.1 Total Bilirubin 1.3 H D AST 183 H ALT 316 H Alkaline Phosphatase 89 Total Protein 6.7 Albumin 3.7 D Globulin 3.0 Albumin/Globulin Ratio 1.2 HIV 1&2 Antibody Rapid Non-Reactive Quality Measures Quality Measures none Assessment & Plan Assessment Current Active Medications: Generic Name Dose Route Start Last Admin Trade Name Freq PRN Reason Stop Dose Admin Acetaminophen 650 mg 01/18/25 14:36 01/18/25 18:36 Acetaminophen 325 Mg Tablet PO 02/17/25 14:35 650 mg Q6H PRN Administration Fever >101.5 Diazepam 5 mg 01/18/25 17:10 Diazepam Inj 5 Mg/Ml Vial 2 Ml IVP X1 PRN Breakthrough Agitation Octreotide Acetate 1,000 mcg/ 102 mls @ 5.1 mls/hr 01/18/25 18:10 01/19/25 13:36 Sodium Chloride IV 01/23/25 18:10 50 mcg/hr .Q20H WILL 5.1 mls/hr Administration Protocol 50 MCG/HR Ceftriaxone Sodium/Dextrose 1 gm in 50 mls @ 100 mls/hr 01/20/25 09:54 Rocephin/D5w 1gm Iv Premix IV 01/27/25 09:53 QDAY WILL Lorazepam 0.5 mg 01/18/25 17:10 01/20/25 09:27 Lorazepam 0.5 Mg Tablet PO 01/23/25 17:09 0.5 mg Q4HR PRN Administration CIWA Score 2-6 Lorazepam 1 mg 01/18/25 17:10 01/19/25 22:07 Lorazepam 0.5 Mg Tablet PO 01/23/25 17:09 1 mg Q4HR PRN Administration CIWA SCORE 7-11 Lorazepam 2 mg 01/18/25 17:10 Lorazepam 0.5 Mg Tablet PO 01/23/25 17:09 Q4HR PRN CIWA SCORE 12-15 Metoclopramide HCl 5 mg 01/19/25 18:00 01/20/25 05:54 Metoclopramide Inj 5 Mg/Ml Vial 2 Ml IVP 02/18/25 17:59 5 mg Q6HR WILL Administration Protocol Ondansetron HCl 4 mg 01/18/25 14:36 Ondansetron Inj 2 Mg/Ml Inj 2 Ml IVP 02/17/25 14:35 Q6H PRN NAUSEA OR VOMITING Protocol Pantoprazole Sodium 40 mg 01/18/25 21:00 01/20/25 09:26 Pantoprazole Inj 40 Mg Vial IVP 02/17/25 20:59 40 mg BID WILL Administration Plan 49 year old male with recent admission for sepsis 2/2 PNA and ADHF 2/2 PSUD, hx of pleural effusions, and chronic alcoholism, who presented to the Emergency Department with abdominal swelling for the past week, associated with nausea but no vomiting or diarrhea. Patient admitted for acute decompensated liver failure. EGD done today. Diuretics held yesterday due to concern for hepatorenal syndrome. Will diurese 01/19 due to +IOs and SOB and improved renal function. #Decompensated liver failure #Cirrhosis #Transaminitis #Possible SBP P/w abdominal pain and ascites. Chronic alcoholism. No signs of jaundice or scleral icterus, no asterixis, no encephalopathy. Fluid wave negative. PT: 16.7 INR: 1.6, AST: 464, ALT: 457. Direct Bilirubin: 1.2. LDH: 618, CTAP: mild to moderate ascites. Attempted paracentesis but per rads not enough fluid to drain. Plan: -Ceftriaxone 1g IV QD -Lasix 40mg IV QD - Hold due to MARQUITA(creatinine 1.3) -Lasix 1x 01/20 (creatinine improved) -Spironolactone 100 mg PO QD (hold if BP <100 systolic, diastolic <60) -Midodrine 5mg PO TID -DC'd (BP too low) -Octreotide drip 1000mcg IV 50mcg/hr -stop at 24 hours per GI -Zofran 4mg IVP Q6H PRN -Strict Is/Os -Daily weights -SCDs -IV NS -Hep B panel FUP -HIV panel: Negative #NSTEMI II #Acute decompensated heart failure 2/2 #meth use Hx of ECHO 03/2024 EF: 20-25%. Denies chest pain, SOB, and palpitations, endorses stomach pain. EKG L anterior fasicular block, ST-T wave changes. Meth+, Troponins resolved. BNP: 485. D-dimer: 2059. CXR: vascular congestion and early signs of HF. Most likely NSTEMI II in setting of demand ischemia due to meth use. Plan: -ECHO: Moderate to severely dilated LV. Severe systolic dysfunction with severe global hypokinesis. Grade II diastolic dysfucntion. Estimated EF 15-20% -Monitor for worsening signs of HF -Admit to tele -Carvdelilol 3.125 mgPO BIDWM -Cards consulted: -Lasix 1x 01/20 (creatinine improved) -Spironolactone 100 mg PO QD (hold if BP <100 systolic, diastolic <60) -Midodrine 5mg PO TID -DC'd (BP too low) -Octreotide drip 1000mcg IV 50mcg/hr -stop at 24 hours per GI #Melena #Upper vs Lower GI bleed ddx; Upper (abdominal pain, hx of alcoholism PUD likely) vs lower GI bleed( dark red blood, no bright streaks in stool), vs esophageal varices (less likely due to no bright red blood). Dark tarry stool. No hemoptysis on exam. Normal hemoglobin Plan: -FOBT FUP -GI consulted -Reglan 5mg IV push -Octreotide DC at 24 hours -EGD FUP: Grade 1 esophageal varices, non erosive gastritis characterized by erythema, erythematous duodenopathy, concerned for gastric motility disorder based on presence of large amount of fluid in the stomach #Chronic alcoholism #CIWA Patient drinks 32 Oz [place] 2x/day Plan: -CIWA protocols in place #MARQUITA #Hepatorenal syndrome? MARQUITA improving Plan: -Continue to monitor renal function Health Maintenance: DVT prophylaxis: SCDs Diet: Cardiac Hernandez: None Lines: PIV Supplemental O2: Nasal cannula CODE STATUS: Full Disposition: Admitted to tele floors for Decompensated liver failure and ADHF 2/2 meth use Patient seen and reviewed with attending Dr. Ernandez and supervising resident Dr. Leung. Note written by Anton Baker MD PGY-1 Attending Provider Attestation/Addendum I have discussed and was present for the essential components of the history, physical examination, diagnosis, and treatment plan with the resident. I agree with the patient's care as documented by the resident and amended herein by me. Isai Ernandez DO. Although this document has been carefully reviewed, there may still be some phonetic and other typographical errors. These errors are purely grammatical due to imperfections in the software program and should not be construed in any way to compromise the substance of the patient's medical care during this visit. Patient seen and evaluated this AM. No acute events overnight, patient subsequently admitted for GI bleed, NSTEMI, MARQUITA, alcohol intoxication, abdominal pain and acute decompensated liver cirrhosis. EGD pending later today, initial blood cultures demonstrating gram-positive rods x 1 set, repeat blood cultures pending. HIV negative, hepatitis panel pending, MRCP was performed demonstrating cirrhosis. Will continue octreotide and pantoprazole as well as ceftriaxone for now, appreciate specialist recommendations.
[2025-01-20] MEDS: cefTRIAXone/D5w 1gm IV premix 1 GM/50 ML BAG IV (11:13)
[2025-01-20] MEDS: FUROSEMIDE INJ 10 MG/ML 4ML VIAL 40 MG IVP (11:13)
--- NOTE | 2025-01-20 11:17 | PC.NURSE ---
Dr. Ernandez and team came by to see patient. Informed that patient has been very cold. Upper and lower extremities are cold to touch. Gave Pt a warm blanket.
--- NOTE | 2025-01-20 14:18 | ESCONSULT_ITS ---
HPI Data of Consult Requesting Physician: Zeyad Herman MD Admitting Provider: Matti Ernandez DO Attending Provider: Zeyad Herman MD Primary Care Provider: Ashu Holcomb MD Consult Narrative Reason for consult: CHF History of present illness: Limited HPI as patient is somnolent, arousable on repeatedly calling his name but currently unable to provide detailed history. Patient is a 49-year-old male with a past medical history of HFrEF, alcohol abuse disorder, cirrhosis, pleural effusions who presented to the ER due to abdominal swelling and nausea. Complaining of abdominal pain and tenderness, but denied chest pain, endorsed shortness of breath. In the ED patient was noted to be tachypneic and tachycardiac, heart rate in the 120s, respiratory rate 26, saturating well on room air, initial labs showed leukocytosis, and elevated total bilirubin and ALT AST. Noted elevated BNP 2913, EKG showed sinus tachycardia with left anterior fascicular block. Chest x-ray concerning for heart failure. CT abdomen pelvis was done which showed cirrhosis and moderate ascites, minimal fluid in gallbladder, but negative for cholecystitis or choledocholithiasis ultrasound abdomen showed abnormal gallbladder. Urine drug screen positive for methamphetamines. Patient was admitted for acute decompensated liver failure. Comparison Shopper was consulted EGD was done which showed grade 1 varices nonerosive gastritis and erythematous duodenopathy, presence of large amount of fluid in the body of stomach suggestive of gastric motility disorder, currently on octreotide for 24 hours. Echocardiogram was done which showed severe systolic dysfunction with severe global hypokinesis, EF 15 to 20%, mildly dilated RV mild RV dysfunction, estimated RVSP 46, small pericardial effusion. Severely dilated LA. Moderate MR. Blood culture positive for bacillus species in 1/2 bottles repeat blood cultures negative at 24 hours. Past medical history: HFrEF, alcohol abuse disorder, cirrhosis, pleural effusions Past surgical history: Thoracentesis SHx: 6 pack beer per day since 15 years old, denies illicit drug use or cigarettes PSHx: Finger amputations cc:: cc: Zeyad Herman MD Review of Systems Review of Systems ROS Unobtainable: unobtainable due to mental status Past Medical History Past Medical History NEUROLOGIC: Negative Neurological Disorders or Seizures CARDIAC: Positive Cardiac Disorders and Congestive Heart Failure RESPIRATORY: Positive Respiratory Disorders (ASTHMA) and Pulmonary Embolism; Negative Chronic Obstructive Pulmonary Disease (COPD) or Asthma GASTROINTESTINAL: Positive Cirrhosis; Negative Gastrointestinal Disorders GENITOURINARY: Negative Genitourinary Disorders or Renal Disease MUSCULOSKELETAL: Negative Musculoskeletal Disorders ENDOCRINE: Negative Endocrine Disorders, Diabetes Mellitus Type 1 or Diabetes Mellitus Type 2 HEMATOLOGIC: Negative Blood Disorders or Sickle Cell Disease PSYCHO/SOCIAL: Positive Recreational Drug Use, Depression and Anxiety OTHER HISTORY: Positive Blood Transfusions; Negative Blood Transfusion Reaction, Anesthesia Reactions or Cancer Family History FAMILY HISTORY: Positive Family Cardiac Disorders; Negative Family Respiratory Disorders or Family Gastrointestinal Problems Social History SMOKING STATUS: Former smoker SUBSTANCE USE: does not use ALCOHOL LAST INTAKE: Days (ago) Exam Vital Signs Temp Pulse Resp BP Pulse Ox O2 Del Method O2 Flow Rate 97.8 F 102 H 18 113/92 H 95 Nasal Cannula 3 01/20/25 12:00 01/20/25 12:00 01/20/25 12:00 01/20/25 12:00 01/20/25 12:00 01/20/25 12:00 01/20/25 12:00 Narrative Exam General: The patient is currently somnolent, but easily arousable on calling his name, is mostly mumbling in response to open questions able to provide yes or no answers to simple questions. Appears to be in distress due to abdominal pain. Skin: Intact, no cyanosis, noted sacral edema HEENT: Atraumatic/normocephalic, PAOLA, neck supple Heart: RRR, S1 and S2 without clicks or murmurs Lungs: Clear on auscultation bilaterally, no difficulty breathing Abdomen: Soft but distended, moderately tender on palpation. Vascular: Peripheral pulses palpable Neuro: Able to move all 4 extremities, no focal neurological deficit noted, unable to assess her mental function due to mental status Results Labs 01/21/25 04:49 01/21/25 04:49 Labs: Short CBC 01/20/25 Range/Units 04:36 WBC 10.4 D (3.8-10.6) Thou/mm3 Hgb 15.9 (13.5-16.0) g/dL Hct 48.5 (41.0-53.0) % Plt Count 297 D (140-440) Thou/mm3 BMP 01/20/25 04:36 Sodium 139 Potassium 3.8 Chloride 102 Carbon Dioxide 23.6 BUN 17 Creatinine 1.2 Glucose 98 Calcium 9.1 Liver Function 01/20/25 Range/Units 04:36 Total Bilirubin 1.3 H D (0.3-1.2) mg/dL AST 183 H (0-34) U/L ALT 316 H (10-49) U/L Alkaline Phosphatase 89 (46-116) U/L Albumin 3.7 D (3.5-5.0) gm/dL Quality Measures Quality Measures none Medications Home Medications and Allergies Home Medications ?Medication ?Instructions ?Recorded ?Confirmed ?Type furosemide 40 mg tablet 40 mg PO QDAY 01/18/2501/18 History metoprolol succinate 25 mg 12.5 mg PO QDAY 01/18/25 History tablet,extended release 24 hr Allergies Allergy/AdvReac Type Severity Reaction Status Date / Time No Known Allergies Allergy Verified 01/17/25 14:29 Visit Medications Acetaminophen (Acetaminophen 325 Mg Tablet) 650 mg PO Q6H PRN PRN Reason: Fever >101.5 Stop: 02/17/25 14:35 Last Admin: 01/18/25 18:36 Dose: 650 mg Carvedilol (Carvedilol 3.125 Mg Tablet) 3.125 mg PO BIDWM [facility] Stop: 02/19/25 20:59 Diazepam (Diazepam Inj 5 Mg/Ml Vial 2 Ml) 5 mg IVP X1 PRN PRN Reason: Breakthrough Agitation Octreotide Acetate 1,000 mcg/ (Sodium Chloride) 102 mls @ 5.1 mls/hr IV .Q20H [facility]; Protocol Stop: 01/23/25 18:10 Last Admin: 01/19/25 13:36 Dose: 50 mcg/hr, 5.1 mls/hr Ceftriaxone Sodium/Dextrose (Rocephin/D5w 1gm Iv Premix) 1 gm in 50 mls @ 100 mls/hr IV QDAY [facility] Stop: 01/27/25 09:53 Last Admin: 01/20/25 11:13 Dose: 100 mls/hr Lorazepam (Lorazepam 0.5 Mg Tablet) 0.5 mg PO Q4HR PRN PRN Reason: CIWA Score 2-6 Stop: 01/23/25 17:09 Last Admin: 01/20/25 09:27 Dose: 0.5 mg Lorazepam (Lorazepam 0.5 Mg Tablet) 1 mg PO Q4HR PRN PRN Reason: CIWA SCORE 7-11 Stop: 01/23/25 17:09 Last Admin: 01/20/25 12:02 Dose: 1 mg Lorazepam (Lorazepam 0.5 Mg Tablet) 2 mg PO Q4HR PRN PRN Reason: CIWA SCORE 12-15 Stop: 01/23/25 17:09 Metoclopramide HCl (Metoclopramide Inj 5 Mg/Ml Vial 2 Ml) 5 mg IVP Q6HR WILL; Protocol Stop: 02/18/25 17:59 Last Admin: 01/20/25 12:03 Dose: 5 mg Ondansetron HCl (Ondansetron Inj 2 Mg/Ml Inj 2 Ml) 4 mg IVP Q6H PRN; Protocol PRN Reason: NAUSEA OR VOMITING Stop: 02/17/25 14:35 Pantoprazole Sodium (Pantoprazole Inj 40 Mg Vial) 40 mg IVP BID WILL Stop: 02/17/25 20:59 Last Admin: 01/20/25 09:26 Dose: 40 mg Discontinued Medications Hydrocodone Bitart/Acetaminophen (Hydrocodone/Apap 5/325 Tablet) 1 tab PO X1 ONE Stop: 01/19/25 23:33 Last Admin: 01/19/25 23:41 Dose: 1 tab Al Hydrox/Mg Hydrox/Simethicone (Mg Hyd/Al Hyd/Celine (Maalox Reg) Susp 30 Ml Udc) 30 ml PO X1 ONE Stop: 01/18/25 11:32 Last Admin: 01/18/25 12:10 Dose: 30 ml Benzocaine (Benzocaine 20% (Hurricaine) [place] 1 Dose) 0 dose TOP X1 ONE Stop: 01/19/25 14:37 Last Admin: 01/19/25 18:14 Dose: Not Given Diphenhydramine HCl (Diphenhydramine Inj 50 Mg/Ml Vial) 25 mg IVP PRNMRX1 PRN PRN Reason: MODERATE SEDATION Stop: 01/19/25 16:36 Fentanyl Citrate (Fentanyl Cit Inj 50 Mcg/Ml Amp 2ml) 50 mcg IVP Q2M PRN PRN Reason: MODERATE SEDATION Stop: 01/19/25 16:36 Furosemide (Furosemide Inj 10 Mg/Ml 4ml Vial) 40 mg IVP X1 ONE Stop: 01/18/25 04:33 Last Admin: 01/18/25 04:46 Dose: 40 mg Furosemide (Furosemide Inj 10 Mg/Ml 4ml Vial) 40 mg IVP QDAY [facility] Stop: 02/18/25 08:59 Last Admin: 01/19/25 13:08 Dose: Not Given Furosemide (Furosemide Inj 10 Mg/Ml 4ml Vial) 40 mg IVP X1 ONE Stop: 01/20/25 10:08 Last Admin: 01/20/25 11:13 Dose: 40 mg Hydromorphone HCl (Hydromorphone Inj 2 Mg/Ml Vial) 1 mg IVP X1 ONE Stop: 01/17/25 21:02 Last Admin: 01/17/25 22:47 Dose: 1 mg Piperacillin/Tazobactam/Dextrose (Zosyn) 3.375 gm in 50 mls @ 100 mls/hr IV X1 ONE Stop: 01/17/25 21:33 Last Infusion: 01/17/25 22:10 Dose: Infused Sodium Chloride (Ns) 1,000 mls @ 75 mls/hr IV .[id number] [facility] Stop: 02/17/25 14:44 Last Admin: 01/19/25 20:03 Dose: 75 mls/hr Ceftriaxone Sodium/Dextrose (Rocephin/D5w 1gm Iv Premix) 1 gm in 50 mls @ 100 mls/hr IV Q12HR [facility] Stop: 01/25/25 14:54 Last Infusion: 01/18/25 16:10 Dose: Infused Ceftriaxone Sodium/Dextrose (Rocephin/D5w 1gm Iv Premix) 1 gm in 50 mls @ 100 mls/hr IV QDAY [facility] Stop: 01/26/25 08:59 Last Infusion: 01/19/25 11:00 Dose: Infused Sodium Chloride (Ns) 500 mls @ 20 mls/hr IV .Q24H ONE Stop: 01/20/25 14:35 Last Admin: 01/19/25 18:14 Dose: Not Given Ketorolac Tromethamine (Ketorolac Inj 30 Mg/Ml Vial) 30 mg IVP X1 ONE Stop: 01/17/25 21:02 Last Admin: 01/17/25 21:36 Dose: 30 mg Midazolam HCl (Midazolam Inj 1 Mg/Ml Vial 2 Ml) 2 mg IVP Q2M PRN PRN Reason: Moderate Sedation Stop: 01/19/25 16:36 Midodrine (Midodrine 5 Mg Tablet) 5 mg PO TID [facility] Stop: 02/17/25 16:29 Last Admin: 01/18/25 16:44 Dose: 5 mg Octreotide Acetate (Octreotide Acet Inj 50 Mcg/Ml Vial) 50 mcg IV X1 ONE Stop: 01/18/25 18:11 Last Admin: 01/18/25 19:49 Dose: 50 mcg Ondansetron HCl (Ondansetron Inj 2 Mg/Ml Inj 2 Ml) 4 mg IVP X1 ONE; Protocol Stop: 01/17/25 21:02 Last Admin: 01/17/25 21:34 Dose: 4 mg Simethicone (Simethicone 80 Mg Chew) 80 mg PO X1 ONE Stop: 01/19/25 23:07 Last Admin: 01/19/25 23:15 Dose: 80 mg Spironolactone (Spironolactone 25 Mg Tablet) 100 mg PO QDAY [facility] Stop: 02/17/25 16:29 Last Admin: 01/19/25 13:11 Dose: Not Given Assessment & Plan Plan Patient is a 49-year-old male with a past medical history of HFrEF, substance abuse disorder, cirrhosis, pleural effusions who presented to the ER due to abdominal swelling and nausea. Complaining of abdominal pain and tenderness, but denied chest pain, endorsed shortness of breath. In the ED patient was noted to be tachypneic and tachycardiac, heart rate in the 120s, respiratory rate 26, saturating well on room air, initial labs showed leukocytosis, and elevated total bilirubin and ALT AST. Noted elevated BNP 2913, EKG showed sinus tachycardia with left anterior fascicular block. Chest x-ray concerning for heart failure. CT abdomen pelvis was done which showed cirrhosis and moderate ascites, minimal fluid in gallbladder, but negative for cholecystitis or choledocholithiasis ultrasound abdomen showed abnormal gallbladder. Urine drug screen positive for methamphetamines. Patient was admitted for acute decompensated liver failure. Comparison Shopper was consulted EGD was done which showed grade 1 varices nonerosive gastritis and erythematous duodenopathy, presence of large amount of fluid in the body of stomach suggestive of gastric motility disorder, currently on octreotide for 24 hours. Echocardiogram was done which showed severe systolic dysfunction with severe global hypokinesis, EF 15 to 20%, mildly dilated RV mild RV dysfunction, estimated RVSP 46, small pericardial effusion. Severely dilated LA. Moderate MR. Blood culture positive for bacillus species in 1/2 bottles repeat blood cultures negative at 24 hours. In 2023, Patient was diagnosed with new onset systolic heart failure in the setting of methamphetamine use, nonischemic cardiomyopathy in March 2024. EF at that time was 20-25 %. At that time patient was initiated on GDMT and was recommended strict abstinence from alcohol and drugs. Cardiology had plan subsequent evaluation for ICD placement and possibility of cardiac transplant if no improvement in 1 to 2 years. The patient was transferred to [facility] for cardiothoracic surgery evaluation during that hospitalization for empyema. Patient had right thoracotomy and decortication procedure done by cardiothoracic surgery. Progressive Care Nurse Dr. Whitman followed the patient at [facility], following episode of nonsustained VT during the surgical procedure. Left heart cath at that time showed normal coronary arteries. At that time the patient was given a LifeVest by the emergency vehicle operations instructor, but compliance was an issue and they had to return the LifeVest. Per patient's sister, there was plan to place an ICD but patient was noncompliant with cardiology recommendations and was still using methamphetamine. Recommend to continue telemetry monitoring for presence of any life-threatening arrhythmias. Recommend patient to follow-up with emergency vehicle operations instructor Dr. Whitman on outpatient basis. Echocardiogram shows moderately to severely dilated LV, severe systolic dysfunction with severe global hypokinesis, grade 2 diastolic dysfunction, estimated EF 15 to 20%, mildly dilated RV with RV dysfunction, moderately elevated estimated RVSP 46 mm, moderate MR, pleural effusion present, severely dilated left atrium LA volume 53.2, small pericardial effusion. Patient started on Coreg 3.25 mg twice daily, recommend switching to metoprolol XL as it has less effect on blood pressure. Was given IV diuresis Lasix 40 mg x 1, chest x-ray is negative for pulmonary edema, patient does have third spacing with ascites but does not seem to be overtly volume overloaded, though noted slight blunting of CP angles and Bri B-lines positive, noted cephalization of blood flow. And enlarged cardiac shadow. Primary team is concern for spontaneous bacterial peritonitis in the setting of decompensated cirrhosis and ascites and tender abdomen. Patient is also encephalopathic at the moment, blood cultures positive for GNR basilar species in 1/2 bottles, pending repeat cultures. Currently on IV antibiotics ceftriaxone, prophylactic dose. Patient does have cirrhosis EGD showed grade 1 gastric varices and gastritis and duodenopathy as well as concern for gastric motility disorder. Noted elevated D-dimers, no CT angiogram or venous duplex ultrasound is done on this admission. Consider CT angiogram if risk for pulmonary embolism is high or venous duplex if concern for DVT, noted no lower extremity edema on physical exam today. Renal function seems to be around baseline, creatinine 1.2, Problems: # Acute on chronic systolic heart failure # Dilated cardiomyopathy # Type II NSTEMI # Acute toxic/encephalopathy # Gram-negative bacteria # Decompensated cirrhosis # Hyperbilirubinemia # Transaminesemia # Concern for SBP # Pericardial effusion?no evidence of tamponade # Pleural effusion # Elevated D-dimers # History of methamphetamine abuse # History of alcohol abuse disorder Recommendations: ? Recommend switching Coreg to metoprolol XL 25 mg daily as it has less effect on blood pressure. Recommend holding parameters if hypotensive or bradycardic. ? Consider ARB or ARNI, if no contraindications blood pressure tolerates. ? Consider spironolactone, as it may confer dual benefit in this patient, in the setting of ascites and CHF. ? Continue diuresis with IV Lasix 40 mg daily, monitor for worsening renal function. ? Currently on octreotide drip, monitor for bradycardia as concurrent administration of beta-dennis can increase the risk of bradycardia ? Patient is on a liquid diet, recommend to avoid fluid overload. Strict intake and output monitoring ? Patient was diagnosed with new onset systolic heart failure in the setting of methamphetamine use, nonischemic cardiomyopathy in March 2024. EF at that time was 20-25 %. At that time patient was initiated on GDMT and was recommended strict abstinence from alcohol and drugs. Cardiology had plan subsequent evaluation for ICD placement and possibility of cardiac transplant if no improvement in 1 to 2 years only if he can quit his drug abuse, smoking or alcohol abuse COMPLETELY. ? Consider CT angiogram if risk for pulmonary embolism is high or venous duplex if concern for DVT ? Recommend to continue telemetry monitoring for presence of any life- threatening arrhythmias. Recommend patient to follow-up with emergency vehicle operations instructor Dr. Whitman on outpatient basis upon discharge. Rest of the management deferred to primary team. Thank you for cardiology consultation. We appreciate the opportunity to participate in this patient's care. Will continue to follow-up on this patient, Recommend patient to follow-up with emergency vehicle operations instructor Dr. Whitman on outpatient basis upon discharge. This case was discussed with emergency vehicle operations instructor, Dr. Osborne. Cecile Landis MD PG3 Attending Provider Attestation/Addendum I have personally seen and examined the patient separately on the above date of service and discussed the plan of care with the resident. I reviewed the resident Dr. Santizo consultation progress note and agree with the resident findings and plan in the note above and have also edited the documentation to reflect my findings and plan. Chidi Osborne M.D. Interventional Cardiology
[2025-01-20] MEDS: OCTREOTIDE ACET INJ 1,000 MCG in SODIUM CHLORIDE 0.9% 100 ML 5.1 MCG IV (15:16)
[2025-01-20] MEDS: DIAZEPAM INJ 5 MG/ML VIAL 2 ML IVP (15:17)
--- NOTE | 2025-01-20 15:25 | PC.NURSE ---
Family came to see patient. Family wanted an update from Dr. Called Dr. Starkey and made aware. DrLuis came to see patient. asked to check patient's vitals and do a bedside glucose test. Bedside glucose 97. Patient's upper and lower extremities cold to touch. Temporal temp 96.6. Gave warm blanket. Asked Dr about any interventions to help with patient's temperature. said no interventions at this time. Asked patient not to drink any liquids for 30 minutes. Will recheck oral temp in 30 minutes to get a more accurate reading. will continue to assess.
--- NOTE | 2025-01-20 16:15 | PC.NURSE ---
Temperature recheck. temporal 97.1. Oral 94.9. Called Dr. Starkey. Dr. Baker covering for Dr. Starkey. aware of temp will continue to monitor. No new orders.
--- NOTE | 2025-01-20 16:19 | PC.SS ---
Per assigned RN report, pt is on restraints due to pulling IVs. per afternoon rounding, Pending Ultrasound of the heart today. Cardio rec?s needed. No d/c date at this time.
--- NOTE | 2025-01-20 17:22 | PD.IMPROG ---
Documentation for date of: 01/20/25 Subjective Subjective Interval history: Patient evaluated Hemoglobin hematocrit 15.9 and 48.5 Exam Vital Signs Temp Pulse Resp BP Pulse Ox O2 Del Method O2 Flow Rate 96.6 F L 70 18 107/86 H 97 Nasal Cannula 3 01/20/25 16:00 01/20/25 16:00 01/20/25 16:00 01/20/25 16:00 01/20/25 16:00 01/20/25 16:00 01/20/25 16:00 Objective Labs 01/20/25 04:36 01/20/25 04:36 Labs: Laboratory Results - last 24 hr 01/20/25 04:36 WBC 10.4 D RBC 5.19 Hgb 15.9 Hct 48.5 MCV 93 MCH 30.6 MCHC 32.8 RDW Std Deviation 56.1 H Plt Count 297 D Neut % (Auto) 42 Lymph % (Auto) 43 Wilkinson % (Auto) 11 Eos % (Auto) 3 Baso % (Auto) 1 Neut # (Auto) 4.4 Lymph # (Auto) 4.5 Wilkinson # (Auto) 1.1 H Eos # (Auto) 0.3 Baso # (Auto) 0.1 Immature Gran # (Auto) 0.03 H Absolute Nucleated RBC 0.00 Immature Gran % 0 Nucleated RBC % 0 Sodium 139 Potassium 3.8 Chloride 102 Carbon Dioxide 23.6 Anion Gap 13 BUN 17 Creatinine 1.2 Estim Creat Clear Calc 67.4 eGFR > 60 BUN/Creatinine Ratio 14 Glucose 98 Calculated Osmolality 279 Calcium 9.1 Corrected Calcium 9.3 Phosphorus 3.7 Magnesium 2.1 Total Bilirubin 1.3 H D AST 183 H ALT 316 H Alkaline Phosphatase 89 Total Protein 6.7 Albumin 3.7 D Globulin 3.0 Albumin/Globulin Ratio 1.2 Impressions Impression: Gastric motility disorder Gastritis Continue current management Assessment & Plan A&P Narrative # Hematemesis # Melena # Chronic liver disease decompensated with cirrhosis advanced portal hypertension and ascites Plan N.p.o. midnight tonight Serial CBC Octreotide 50 mcg/h continuous infusion after loading dose of 50 mcg IV Protonix Consent obtained for fiberoptic esophagogastroduodenoscopy with possible biopsy possible therapeutic intervention under intravenous moderate sedation Advised complete abstinence from drugs and alcohol Prognosis guarded Agree with Zosyn coverage Will follow the patient Thank you very much for the opportunity to participate in care of this patient Other medical problems include Elevated troponin Chronic liver disease secondary to alcohol with negative MRCP Time Spent With Patient Time: Total time spent is greater than 50% in coordination of care (as documented) at patient's floor/unit and/or counseling patient:
[2025-01-20 20:13] LABS: Hepatitis A Antibody IgM Non Reactive (Non React); Hepatitis B Core Antibody IgM Non Reactive (Non React); Hepatitis B Surface Antigen Non Reactive (Non React); Hepatitis C Antibody Non Reactive (Non React)
[2025-01-21] VITALS (16 sets, daily range): BP systolic 96–137; BP diastolic 75–104; PULSE 72–105; RESP 12–95; TEMP 35.8–36.3; O2SAT 60–100; BMI 22.1
--- NOTE | 2025-01-21 02:01 | PC.NURSE ---
notified Dr. Vallejo of patient confused, wanting to leave, very anxious, ciwa 8 because he will not answer about visual or auditory. He keeps removing oxygen and chest leads. will come to see patient.
[2025-01-21 03:07] LABS: OBS Card Lot # 23001; OBS Developer Lot # 23002; OBS Performed By adamk; OBS QC OK? Yes; Occult Blood, Stool Positive (Negative)
[2025-01-21] MEDS: METOCLOPRAMIDE INJ 5 MG/ML VIAL 2 ML IVP ×3 (05:47→17:23)
[2025-01-21 05:53] LABS: Basophils # (Auto) 0.1 Thou/mm3 (0.0-0.2); Basophils % (Auto) 1 % (0-2.5); Eosinophils # (Auto) 0.2 Thou/mm3 (0.0-0.5); Eosinophils % (Auto) 3 % (0-10); Hematocrit 45.1 % (41.0-53.0); Hemoglobin 14.8 g/dL (13.5-16.0); Immature Granulocytes Auto 0.02 Thou/mm3 (0.00-0.00); Lymphocytes # (Auto) 2.7 Thou/mm3 (1.0-4.8); Lymphocytes % (Auto) 36 % (10-50); Mean Corpuscular HGB Conc 32.8 g/dl (31.0-37.0); Mean Corpuscular Hemoglobin 30.2 pg (25.0-35.0); Mean Corpuscular Volume 92 fL (80-100); Monocytes # (Auto) 0.8 Thou/mm3 (0.0-0.8); Monocytes % (Auto) 10 % (0-12); Neutrophils # (Auto) 3.7 Thou/mm3 (1.8-7.7); Neutrophils % (Auto) 50 % (37-80); Nucleated Red Blood Cell # 0.00 Thou/mm3 (0.00-0.00); Nucleated Red Blood Cell % 0 /100 WBC (0); Platelet Count 288 Thou/mm3 (140-440); RDW Standard Deviation 53.4 fL (35.1-43.9); Red Blood Count 4.90 Miln/mm3 (4.50-5.90); White Blood Count 7.4 Thou/mm3 (3.8-10.6)
[2025-01-21 06:22] LABS: Alanine Aminotransferase 286 U/L (10-49); Albumin, Serum 3.3 gm/dL (3.5-5.0); Albumin/Globulin Ratio 1.3 (1.2-2.2); Alkaline Phosphatase 72 U/L (46-116); Anion Gap 12 (7-16); Aspartate Amino Transferase 215 U/L (0-34); BUN/Creatinine Ratio 13 Ratio (12-20); Bilirubin,Total 1.2 mg/dL (0.3-1.2); Blood Urea Nitrogen 15 mg/dL (9-23); Calcium 8.9 mg/dL (8.3-10.6); Calcium (Corrected) 9.5 mg/dL (8.5-10.1); Carbon Dioxide 23.0 mMol/L (20.0-31.0); Chloride 102 mMol/L (98-107); Creatinine (Component) 1.2 mg/dL (0.6-1.3); Estimated Creatinine Clearance 68.8 mL/min (>60); Globulin 2.6 gm/dL (2.3-3.5); Glucose 104 mg/dL (74-106); Magnesium 1.8 mg/dL (1.6-2.6); Osmolality,Calculated 274 (275-295); Phosphorous 3.5 mg/dL (2.4-5.1); Potassium 3.9 mMol/L (3.4-5.1); Sodium 137 mMol/L (136-145); Total Protein 5.9 gm/dL (5.7-8.2); eGFR > 60 See Note
[2025-01-21] MEDS: LOSARTAN POTASSIUM 25 MG TABLET PO (08:39)
[2025-01-21] MEDS: METOPROLOL SUCCINATE XL 25 MG TABCR PO (08:39)
[2025-01-21] MEDS: FUROSEMIDE INJ 10 MG/ML 4ML VIAL 40 MG IVP (08:40)
[2025-01-21] MEDS: cefTRIAXone/D5w 1gm IV premix 1 GM/50 ML BAG IV ×2 (08:41→11:29)
[2025-01-21] MEDS: ACETAMINOPHEN 325 MG TABLET 650 MG PO (08:58)
[2025-01-21] MEDS: Magnesium Sulfate 2 GM Ivpb 2 GM/50 ML BAG IV (10:34)
--- NOTE | 2025-01-21 11:05 | XR_ITS ---
Examination: Abdomen sonogram, Limited Date and time of exam: January 21, 2025, 1131 hours INDICATIONS: Cirrhosis, increasing distention this week Technique: Real-time briceno scale transabdominal sonographic images of the upper abdomen obtained. Findings: Minimal ascitic fluid IMPRESSION: Minimal ascitic fluid
[2025-01-21] MEDS: HYDROmorphone INJ 2 MG/ML VIAL 1 MG IVP (11:23)
[2025-01-21] MEDS: SPIRONOLACTONE 25 MG TABLET 50 MG PO (12:10)
--- NOTE | 2025-01-21 13:04 | ESPR_ITS ---
<Statement entered by Zeyad Herman MD - 01/21/25 18:22> I have reviewed the note and agree with the resident's assessment & plan with exceptions as below. I have personally reviewed labs, imaging, home meds/prior records, examined the patient, formulated and discussed management plan with the IM team. Patient examined at bedside today. No acute overnight events. Will order ultrasound paracentesis as patient does appear to be more distended today. Will increase Rocephin 2 g IV for suspected peritonitis treatment. Will dose Lasix with spironolactone 20 and 50 mg respectively for diuresis at this time. Patient experiencing some pain at this time we will give a dose of Dilaudid at this time. Cardiology on consult, appreciate recommendations. Repeat hematology and chemistry in AM. Zeyad Herman, PGY-2 Internal Medicine Documentation for date of: 01/21/25 Subjective Subjective Interval history: Patient examined bedside, +4000 I/Os. Not wearing his oxy mask desaturating to 85%. Interviewer placed oxymask on his face and he resaturated to 100%. patient states worsening abdominal pain, stating it is sharp now and feels like its swelling has increased. States the pain does not radiate to his back but right in the front of his stomach. Ongoing SOB. No chest pain. Ongoing nausea, no VD. sap crm developer were called twice due to desaturation and reduced respiratory drive. Narcan was given and patient recovered fine. Exam Vital Signs Temp Pulse Resp BP Pulse Ox O2 Del Method O2 Flow Rate 96.9 F 103 H 18 114/88 H 99 Nasal Cannula 2 01/21/25 12:00 01/21/25 12:10 01/21/25 12:00 01/21/25 12:10 01/21/25 12:00 01/21/25 12:00 01/21/25 12:00 Narrative Exam GENERAL APPEARANCE: AOx3. Distressed, grimacing, writhing in discomfort, well developed/ well nourished, no cyanosis, pallor, or diaphoresis. HEENT: Normocephalic atraumatic, no facial trauma, neck is supple. Lids/conjunctiva normal. Mucous membranes moist, nares normal, lips/teeth normal uvula midline without oral pharyngeal erythema, exudate or swelling TMs normal bilaterally. No lymphangitis/lymphedema. No scleral icterus CARDIAC: Tachycardic Regular rhythm, no edema. No murmurs, rubs, or gallops noted RESPIRATORY: respiratory effort normal, speaks in full sentences, no tripod position, no accessory muscle use. Lungs clear to auscultation without rhonchi, wheezes, rales ABDOMINAL: NBS. Soft, Moderate distension, diffusely TTP, most TTP in Right quadrants. No evidence of fluid wave. No pulsatile masses on exam, rebound tenderness, Negative Young sign, no pain over Mcburney's point. No signs of acute abdomen, guarding, rebound tension. Fluid wave+ MUSCLES/EXTREMITIES: No abnormal range of motion, no swelling. No edema, missing 3rd and 4th distal phalanges. DERM: Warm, pink and dry. No rashes, dermatoses, petechiae or lesions. NEUROLOGICAL: Speech is clear and appropriate. Normal level of consciousness. Gait and coordination are normal. 5/5 strength in all extremities. PSYCH: Normal mood and affect. Judgement/competence is appropriate Objective Labs 01/21/25 04:49 01/21/25 04:49 Labs: Laboratory Results - last 24 hr 01/19/25 01/21/25 01/21/25 06:04 01:18 04:49 WBC 7.4 RBC 4.90 Hgb 14.8 Hct 45.1 MCV 92 MCH 30.2 MCHC 32.8 RDW Std Deviation 53.4 H Plt Count 288 Neut % (Auto) 50 Lymph % (Auto) 36 [place] % (Auto) 10 Eos % (Auto) 3 Baso % (Auto) 1 Neut # (Auto) 3.7 Lymph # (Auto) 2.7 [place] # (Auto) 0.8 Eos # (Auto) 0.2 Baso # (Auto) 0.1 Immature Gran # (Auto) 0.02 H Absolute Nucleated RBC 0.00 Immature Gran % 0 Nucleated RBC % 0 Sodium 137 Potassium 3.9 Chloride 102 Carbon Dioxide 23.0 Anion Gap 12 BUN 15 Creatinine 1.2 Estim Creat Clear Calc 68.8 eGFR > 60 BUN/Creatinine Ratio 13 Glucose 104 Calculated Osmolality 274 L Calcium 8.9 Corrected Calcium 9.5 Phosphorus 3.5 Magnesium 1.8 Total Bilirubin 1.2 AST 215 H ALT 286 H Alkaline Phosphatase 72 Total Protein 5.9 Albumin 3.3 L Globulin 2.6 Albumin/Globulin Ratio 1.3 Stool Occult Blood Positive A Hepatitis A IgM Ab Non Reactive Hep Bs Antigen Non Reactive Hep B Core IgM Ab Non Reactive Hepatitis C Antibody Non Reactive Quality Measures Quality Measures none Assessment & Plan Assessment Current Active Medications: Generic Name Dose Route Start Last Admin Trade Name Freq PRN Reason Stop Dose Admin Acetaminophen 650 mg 01/21/25 08:35 01/21/25 08:58 Acetaminophen 325 Mg Tablet PO 02/17/25 14:35 650 mg Q6H PRN Administration Fever >100 or pain 1-3 Furosemide 20 mg 01/22/25 09:00 Furosemide Inj 10 Mg/Ml 4ml Vial IVP 02/21/25 08:59 QDAY WILL Ceftriaxone Sodium 2 gm/ 50 mls @ 100 mls/hr 01/22/25 09:00 Sodium Chloride IV 01/29/25 08:59 QDAY WILL Losartan Potassium 25 mg 01/21/25 09:00 01/21/25 08:39 Losartan Potassium 25 Mg Tablet PO 02/20/25 08:59 25 mg QDAY WILL Administration Metoclopramide HCl 5 mg 01/19/25 18:00 01/21/25 05:47 Metoclopramide Inj 5 Mg/Ml Vial 2 Ml IVP 02/18/25 17:59 5 mg Q6HR WILL Administration Protocol Metoprolol Succinate 25 mg 01/21/25 09:00 01/21/25 08:39 Metoprolol Succinate Xl 25 Mg Tabcr PO 02/20/25 08:59 25 mg QDAY WILL Administration Midodrine 10 mg 01/21/25 14:00 Midodrine 5 Mg Tablet PO 02/20/25 13:59 TID WILL Ondansetron HCl 4 mg 01/18/25 14:36 Ondansetron Inj 2 Mg/Ml Inj 2 Ml IVP 02/17/25 14:35 Q6H PRN NAUSEA OR VOMITING Protocol Pantoprazole Sodium 40 mg 01/18/25 21:00 01/21/25 08:40 Pantoprazole Inj 40 Mg Vial IVP 02/17/25 20:59 40 mg BID WILL Administration Spironolactone 50 mg 01/22/25 09:00 Spironolactone 25 Mg Tablet PO 02/21/25 08:59 QDAY WILL Plan 49 year old male with recent admission for sepsis 2/2 PNA and ADHF 2/2 PSUD, hx of pleural effusions, and chronic alcoholism, who presented to the Emergency Department with abdominal swelling for the past week, associated with nausea but no vomiting or diarrhea. Patient admitted for acute decompensated liver failure. EGD done today. Diuretics held yesterday due to concern for hepatorenal syndrome. Will diurese 01/19 due to +IOs and SOB and improved renal function. #Decompensated liver failure #Cirrhosis #Transaminitis #Possible SBP P/w abdominal pain and ascites. Chronic alcoholism. No signs of jaundice or scleral icterus, no asterixis, no encephalopathy. Fluid wave negative. PT: 16.7 INR: 1.6, AST: 464, ALT: 457. Direct Bilirubin: 1.2. LDH: 618, CTAP: mild to moderate ascites. Attempted paracentesis but per rads not enough fluid to drain. Plan: -Ceftriaxone 1g IV QD -Lasix 40mg IV QD - DC -Lasix 20mg QD -Spironolactone 50 mg PO QD (hold if BP <100 systolic, diastolic <60) -Midodrine 10mg PO TID -Octreotide drip 1000mcg IV 50mcg/hr -stop at 24 hours per GI -Zofran 4mg IVP Q6H PRN -Strict Is/Os -Daily weights -SCDs -IV NS -Hep B panel FUP -HIV panel: Negative #NSTEMI II #Acute decompensated heart failure / #meth use Hx of ECHO 03/2024 EF: 20-25%. Denies chest pain, SOB, and palpitations, endorses stomach pain. EKG L anterior fasicular block, ST-T wave changes. Meth+, Troponins resolved. BNP: 485. D-dimer: 2059. CXR: vascular congestion and early signs of HF. Most likely NSTEMI II in setting of demand ischemia due to meth use. Plan: -ECHO: Moderate to severely dilated LV. Severe systolic dysfunction with severe global hypokinesis. Grade II diastolic dysfucntion. Estimated EF 15-20% -Monitor for worsening signs of HF -Admit to tele -Carvdelilol 3.125 mgPO BIDWM -Cards consulted: -Lasix 1x 01/20 (creatinine improved) -Spironolactone 50 mg PO QD (hold if BP <100 systolic, diastolic <60) -Octreotide drip 1000mcg IV 50mcg/hr -stop at 24 hours per GI -Losartan 25mg PO QD -Metoprolol succinate 25mg PO QD -Midodrine 10mg PO TID #Melena #Upper vs Lower GI bleed ddx; Upper (abdominal pain, hx of alcoholism PUD likely) vs lower GI bleed( dark red blood, no bright streaks in stool), vs esophageal varices (less likely due to no bright red blood). Dark tarry stool. No hemoptysis on exam. Normal hemoglobin Plan: -FOBT: Positive -GI consulted -Reglan 5mg IV push -Octreotide DC at 24 hours -EGD FUP: Grade 1 esophageal varices, non erosive gastritis characterized by erythema, erythematous duodenopathy, concerned for gastric motility disorder based on presence of large amount of fluid in the stomach #DIRECTOR OF SALES SUPPORT Dilaudid and narco given due to diffuse abdominal pain. patient had decreased respiratory drive, took off his oxygen mask and desaturated. lactic acid was done, EKG: showed new T wave abnormalities and prolonged QT interval. sap crm developer called low pH barely acidotic on pH PCO2 49, pO2L 125, O2 saturation 99%. lactic acid 3.2 --> 2.9. Troponins 1.352 cards consulted and stated type 2 demand ischmemia. IR declined to drain ascitic fluid stating it was too minimal. Held reglan due to prolonged QT interval. Chest xray showed PNA and atelectasis at the right base Plan: -Naloxone PRN -DC narco -Tylenol for pain #Chronic alcoholism #CIWA Patient drinks 32 Oz [place] 2x/day Plan: -CIWA protocols in place #MARQUITA #Hepatorenal syndrome? MARQUITA improving Creatinine 1.2 BUN: 15 today Plan: -Continue to monitor renal function Health Maintenance: DVT prophylaxis: SCDs Diet: Cardiac Hernandez: None GI prophylaxis: 40mg IVP protonix Lines: PIV Supplemental O2: Nasal cannula CODE STATUS: Full Disposition: Admitted to tele floors for Decompensated liver failure and ADHF 2/2 meth use Patient seen and reviewed with attending Dr. Ernandez and supervising resident Dr. Leung. Note written by Anton Baker MD PGY-1 Attending Provider Attestation/Addendum I have discussed and was present for the essential components of the history, physical examination, diagnosis, and treatment plan with the resident. I agree with the patient's care as documented by the resident and amended herein by me. Isai Ernandez DO. Although this document has been carefully reviewed, there may still be some phonetic and other typographical errors. These errors are purely grammatical due to imperfections in the software program and should not be construed in any way to compromise the substance of the patient's medical care during this visit. Patient seen and evaluated this AM. No acute events overnight, patient subsequently admitted for GI bleed, NSTEMI, MARQUITA, alcohol intoxication, abdominal pain and acute decompensated liver cirrhosis. EGD pending later today, initial blood cultures demonstrating gram-positive rods x 1 set, repeat blood cultures pending. HIV negative, hepatitis panel pending, MRCP was performed demonstrating cirrhosis. Will continue octreotide and pantoprazole as well as ceftriaxone for now, appreciate specialist recommendations.
[2025-01-21] MEDS: MIDODRINE 5 MG TABLET 10 MG PO ×2 (14:00→23:10)
--- NOTE | 2025-01-21 14:37 | EKG_ITS ---
[facility] Test Date: 2025-01-21 Pat Name: KALPANA FAIRCHILD [facility] Gender: Male Hotel Attendant: KWASI : 1975 Requested By: Phill Espinoza Order Number: [id number] Reading MD: Phill Espinoza Measurements Intervals [place] Rate: 85 P: 34 VT: 194 QRS: -41 QRSD: 110 T: 148 QT: 422 QTc: 503 Interpretive Statements SINUS RHYTHM POSSIBLE LEFT ATRIAL ENLARGEMENT MARKED LEFT AXIS DEVIATION MODERATE T-WAVE ABNORMALITY, CONSIDER LATERAL ISCHEMIA Compared to ECG 01/17/2025 14:49:31 Left-axis deviation now present T-wave abnormality now present Possible ischemia now present Sinus tachycardia no longer present Left anterior fascicular block no longer present Left ventricular hypertrophy no longer present ST (T wave) deviation no longer present /store/S0/[id number].pdf
--- NOTE | 2025-01-21 14:39 | XR_ITS ---
Examination: AP chest single view Technique AP portable supine chest single view Date and time: January 21, 2025 1457 hours INDICATIONS: O2 desaturation today. FINDINGS: Mild to moderate enlargement left ventricle. Pneumonia and atelectasis right base. Mild vascular congestion. Intact osseous structures. IMPRESSION: Pneumonia and atelectasis right base.
--- NOTE | 2025-01-21 14:52 | PC.SS ---
rounding note: Patient had rapid response called 2 x today. Patient had consult for Cardio. New onset CHF. remains alt medical decision maker. Patient is a resident of [facility].
[2025-01-21] MEDS: NALOXONE INJ 1 MG/ML SYRINGE 2 ML 0.4 MG IV (14:58)
[2025-01-21 15:05] LABS: Allen Test Performed/OK; Base Excess -1 (-3-3); HCO3 25 mEq/L (20-26); Inspired O2, VO2 Liters 15 L/min; O2 Saturation 99 % (91-98); PCO2 49 mmHg (32.0-48.0); PO2 125 mmHg (83-108); Puncture Site Right Radial; pH, Arterial 7.32 (7.35-7.45)
--- NOTE | 2025-01-21 15:13 | PD.RESEVENT ---
Documentation for date of: 01/21/25 Event Note Event Note: 01/21/2025 RETAIL ASSET PROTECTION SPECIALIST called at 14:33 for bed 272 due to hypoxia oxygen saturations in the 70%. Patient seen and assessed bedside, was not in acute distress. he was able to answers questions but was somnolent; however was not wearing his oxygen mask. The oxygen mask was placed back over his mouth and he was instructed to breathe through his nose, immediately following his saturations increased to 95%. A physical exam was performed, his heart was beating at RRR, lungs were clear to auscultation, there was no abdominal tenderness or pain, bowel sounds were normal, no signs of acute abdomen noted. An ABG, lactic acid, troponins, an EKG and CTAP w/o contrast was ordered. Patient was observed for 10 minutes, and then at 15:00, 01/21/2025 another rapid was called due to hypoxia and lethargy. Naloxone 0.4 mg IM was injected and patient recovered. Most likely due to opiate overdose. Attending Dr. Ernandez attended the RETAIL ASSET PROTECTION SPECIALIST, made aware, and will continue to monitor the patient as well. Patient seen and plan discussed with attending Dr. Ernandez and supervising resident Dr. Leung. Note written by Anton Baker PGY-1
[2025-01-21 15:34] LABS: Lactate (Lactic Acid) 3.2 mMol/L (0.4-2.0)
[2025-01-21 16:17] LABS: Troponin I 1.352 ng/mL (0.0-0.045)
--- NOTE | 2025-01-21 17:59 | ESPR_ITS ---
Documentation for date of: 01/21/25 Subjective Subjective Interval history: Patient is evaluated at the bedside, at the time of evaluation the morning patient did seem more alert and oriented compared to yesterday, telemetry box was not showing oximetry readings, RN was instructed to place SPO2 monitor as patient was hypoxic yesterday. Continues on 3 L nasal cannula oxygen. Patient currently seems to be toxic looking, septic due to GNR bacteremia, will defer antibiotic treatment to primary team. Later in the afternoon patient did have a rapid response for hypoxia and altered mental status, repeat set of labs were ordered including troponin which increased to 1.3, patient did not complain of chest pain, vitals including blood pressure and heart rate were stable. Encephalopathy likely medication induced patient was given IV Dilaudid, but also possible underlying hepatic encephalopathy given diagnosis of cirrhosis as well as toxic encephalopathy given underlying sepsis and bacteremia. Of note, as documented previously, patient had clear coronary arteries on [facility] angiogram which was done recently at [facility], troponin elevation at this point likely supply/demand mismatch in the setting of sepsis. Prognosis does seem to be guarded given endorgan failure, underlying sepsis and bacteremia. Exam Vital Signs Temp Pulse Resp BP Pulse Ox O2 Del Method O2 Flow Rate 96.5 F L 75 20 101/83 93 L Nasal Cannula 2 01/21/25 16:00 01/21/25 17:03 01/21/25 17:03 01/21/25 16:00 01/21/25 16:00 01/21/25 16:00 01/21/25 16:00 Narrative Exam General: The patient is currently somnolent, but easily arousable on calling his name, is mostly mumbling in response to open questions able to provide yes or no answers to simple questions. Appears to be in distress due to abdominal pain. Skin: Intact, no cyanosis, noted sacral edema HEENT: Atraumatic/normocephalic, PAOLA, neck supple Heart: RRR, S1 and S2 without clicks or murmurs Lungs: Clear on auscultation bilaterally, no difficulty breathing Abdomen: Soft but distended, moderately tender on palpation. Vascular: Peripheral pulses palpable Neuro: Able to move all 4 extremities, no focal neurological deficit noted, unable to assess her mental function due to mental status Objective Labs 01/21/25 04:49 01/21/25 04:49 Labs: Laboratory Results - last 24 hr 01/19/25 01/21/25 01/21/25 06:04 01:18 04:49 WBC 7.4 RBC 4.90 Hgb 14.8 Hct 45.1 MCV 92 MCH 30.2 MCHC 32.8 RDW Std Deviation 53.4 H Plt Count 288 Neut % (Auto) 50 Lymph % (Auto) 36 [place] % (Auto) 10 Eos % (Auto) 3 Baso % (Auto) 1 Neut # (Auto) 3.7 Lymph # (Auto) 2.7 [place] # (Auto) 0.8 Eos # (Auto) 0.2 Baso # (Auto) 0.1 Immature Gran # (Auto) 0.02 H Absolute Nucleated RBC 0.00 Immature Gran % 0 Nucleated RBC % 0 Puncture Site ABG pH ABG pCO2 ABG pO2 ABG HCO3 ABG O2 Saturation ABG Base Excess Oxygen Liter Flow Sodium 137 Potassium 3.9 Chloride 102 Carbon Dioxide 23.0 Anion Gap 12 BUN 15 Creatinine 1.2 Estim Creat Clear Calc 68.8 eGFR > 60 BUN/Creatinine Ratio 13 Glucose 104 Calculated Osmolality 274 L Lactic Acid Calcium 8.9 Corrected Calcium 9.5 Phosphorus 3.5 Magnesium 1.8 Total Bilirubin 1.2 AST 215 H ALT 286 H Alkaline Phosphatase 72 Troponin I Total Protein 5.9 Albumin 3.3 L Globulin 2.6 Albumin/Globulin Ratio 1.3 Stool Occult Blood Positive A Hepatitis A IgM Ab Non Reactive Hep Bs Antigen Non Reactive Hep B Core IgM Ab Non Reactive Hepatitis C Antibody Non Reactive 01/21/25 01/21/25 14:43 14:52 WBC RBC Hgb Hct MCV MCH MCHC RDW Std Deviation Plt Count Neut % (Auto) Lymph % (Auto) [place] % (Auto) Eos % (Auto) Baso % (Auto) Neut # (Auto) Lymph # (Auto) [place] # (Auto) Eos # (Auto) Baso # (Auto) Immature Gran # (Auto) Absolute Nucleated RBC Immature Gran % Nucleated RBC % Puncture Site Right Radial ABG pH 7.32 L ABG pCO2 49 H ABG pO2 125 H ABG HCO3 25 ABG O2 Saturation 99 H ABG Base Excess -1 Oxygen Liter Flow 15 Sodium Potassium Chloride Carbon Dioxide Anion Gap BUN Creatinine Estim Creat Clear Calc eGFR BUN/Creatinine Ratio Glucose Calculated Osmolality Lactic Acid 3.2 H Calcium Corrected Calcium Phosphorus Magnesium Total Bilirubin AST ALT Alkaline Phosphatase Troponin I 1.352 H* Total Protein Albumin Globulin Albumin/Globulin Ratio Stool Occult Blood Hepatitis A IgM Ab Hep Bs Antigen Hep B Core IgM Ab Hepatitis C Antibody ABG Interpretation ABG results: 01/21/25 14:52 ABG pH 7.32 L ABG pCO2 49 H ABG pO2 125 H ABG HCO3 25 ABG O2 Saturation 99 H ABG Base Excess -1 Quality Measures Quality Measures none Assessment & Plan Assessment Current Active Medications: Generic Name Dose Route Start Last Admin Trade Name Freq PRN Reason Stop Dose Admin Acetaminophen 650 mg 01/21/25 08:35 01/21/25 08:58 Acetaminophen 325 Mg Tablet PO 02/17/25 14:35 650 mg Q6H PRN Administration Fever >100 or pain 1-3 Furosemide 20 mg 01/22/25 09:00 Furosemide Inj 10 Mg/Ml 4ml Vial IVP 02/21/25 08:59 QDAY WILL Ceftriaxone Sodium 2 gm/ 50 mls @ 100 mls/hr 01/22/25 09:00 Sodium Chloride IV 01/29/25 08:59 QDAY WILL Losartan Potassium 25 mg 01/21/25 09:00 01/21/25 08:39 Losartan Potassium 25 Mg Tablet PO 02/20/25 08:59 25 mg QDAY WILL Administration Metoclopramide HCl 5 mg 01/19/25 18:00 01/21/25 17:23 Metoclopramide Inj 5 Mg/Ml Vial 2 Ml IVP 02/18/25 17:59 5 mg Q6HR WILL Administration Protocol Metoprolol Succinate 25 mg 01/21/25 09:00 01/21/25 08:39 Metoprolol Succinate Xl 25 Mg Tabcr PO 02/20/25 08:59 25 mg QDAY WILL Administration Midodrine 10 mg 01/21/25 14:00 01/21/25 14:00 Midodrine 5 Mg Tablet PO 02/20/25 13:59 10 mg TID WILL Administration Naloxone HCl 0.4 mg 01/21/25 15:07 Naloxone Inj 1 Mg/Ml Syringe 2 Ml IM 02/20/25 14:54 Q3M PRN OPIATE REVERSAL Ondansetron HCl 4 mg 01/18/25 14:36 Ondansetron Inj 2 Mg/Ml Inj 2 Ml IVP 02/17/25 14:35 Q6H PRN NAUSEA OR VOMITING Protocol Pantoprazole Sodium 40 mg 01/18/25 21:00 01/21/25 08:40 Pantoprazole Inj 40 Mg Vial IVP 02/17/25 20:59 40 mg BID WILL Administration Spironolactone 50 mg 01/22/25 09:00 Spironolactone 25 Mg Tablet PO 02/21/25 08:59 QDAY WILL Plan Patient is a 49-year-old male with a past medical history of HFrEF, substance abuse disorder, cirrhosis, pleural effusions who presented to the ER due to abdominal swelling and nausea. Complaining of abdominal pain and tenderness, but denied chest pain, endorsed shortness of breath. In the ED patient was noted to be tachypneic and tachycardiac, heart rate in the 120s, respiratory rate 26, saturating well on room air, initial labs showed leukocytosis, and elevated total bilirubin and ALT AST. Noted elevated BNP 2913, EKG showed sinus tachycardia with left anterior fascicular block. Chest x-ray concerning for heart failure. CT abdomen pelvis was done which showed cirrhosis and moderate ascites, minimal fluid in gallbladder, but negative for cholecystitis or choledocholithiasis ultrasound abdomen showed abnormal gallbladder. Urine drug screen positive for methamphetamines. Patient was admitted for acute decompensated liver failure. Food And Beverage Service Manager was consulted EGD was done which showed grade 1 varices nonerosive gastritis and erythematous duodenopathy, presence of large amount of fluid in the body of stomach suggestive of gastric motility disorder, currently on octreotide for 24 hours. Echocardiogram was done which showed severe systolic dysfunction with severe global hypokinesis, EF 15 to 20%, mildly dilated RV mild RV dysfunction, estimated RVSP 46, small pericardial effusion. Severely dilated LA. Moderate MR. Blood culture positive for bacillus species in 1/2 bottles repeat blood cultures negative at 24 hours. In 2023, Patient was diagnosed with new onset systolic heart failure in the setting of methamphetamine use, nonischemic cardiomyopathy in March 2024. EF at that time was 20-25 %. At that time patient was initiated on GDMT and was recommended strict abstinence from alcohol and drugs. Cardiology had plan subsequent evaluation for ICD placement and possibility of cardiac transplant if no improvement in 1 to 2 years. The patient was transferred to [facility] for cardiothoracic surgery evaluation during that hospitalization for empyema. Patient had right thoracotomy and decortication procedure done by cardiothoracic surgery. [employer]er Dr. Whitman followed the patient at [facility], following episode of nonsustained VT during the surgical procedure. Left heart cath at that time showed normal coronary arteries. At that time the patient was given a LifeVest by the automotive technician, but compliance was an issue and they had to return the LifeVest. Per patient's sister, there was plan to place an ICD but patient was noncompliant with cardiology recommendations and was still using methamphetamine. Recommend to continue telemetry monitoring for presence of any life-threatening arrhythmias. Recommend patient to follow-up with automotive technician Dr. Whitman on outpatient basis. Echocardiogram shows moderately to severely dilated LV, severe systolic dysfunction with severe global hypokinesis, grade 2 diastolic dysfunction, estimated EF 15 to 20%, mildly dilated RV with RV dysfunction, moderately elevated estimated RVSP 46 mm, moderate MR, pleural effusion present, severely dilated left atrium LA volume 53.2, small pericardial effusion. Patient started on Coreg 3.25 mg twice daily, recommend switching to metoprolol XL as it has less effect on blood pressure. Was given IV diuresis Lasix 40 mg x 1, chest x-ray is negative for pulmonary edema, patient does have third spacing with ascites but does not seem to be overtly volume overloaded, though noted slight blunting of CP angles and Bri B-lines positive, noted cephalization of blood flow. And enlarged cardiac shadow. Primary team is concern for spontaneous bacterial peritonitis in the setting of decompensated cirrhosis and ascites and tender abdomen. Patient is also encephalopathic at the moment, blood cultures positive for GNR basilar species in 1/2 bottles, pending repeat cultures. Currently on IV antibiotics ceftriaxone, prophylactic dose. Patient does have cirrhosis EGD showed grade 1 gastric varices and gastritis and duodenopathy as well as concern for gastric motility disorder. Noted elevated D-dimers, no CT angiogram or venous duplex ultrasound is done on this admission. Consider CT angiogram if risk for pulmonary embolism is high or venous duplex if concern for DVT, noted no lower extremity edema on physical exam today. Renal function seems to be around baseline, creatinine 1.2, 01/21/2025 Later in the afternoon patient did have a rapid response for hypoxia and altered mental status, repeat set of labs were ordered including troponin which increased to 1.3, patient did not complain of chest pain, vitals including blood pressure and heart rate were stable. Encephalopathy likely medication induced patient was given IV Dilaudid, but also possible underlying hepatic encephalopathy given diagnosis of cirrhosis as well as toxic encephalopathy given underlying sepsis and bacteremia. Of note, as documented previously, patient had clear coronary arteries on [facility] angiogram which was done recently at [facility], troponin elevation at this point likely supply/demand mismatch in the setting of sepsis. Prognosis does seem to be guarded given endorgan failure, underlying sepsis and bacteremia. Problems: # Acute on chronic systolic heart failure # Dilated cardiomyopathy # Type II NSTEMI # Acute toxic/encephalopathy # Gram-negative bacteremia # Lactic Acidosis # Decompensated cirrhosis # Hyperbilirubinemia # Transaminesemia # Concern for SBP # Pericardial effusion?no evidence of tamponade # Pleural effusion # Elevated D-dimers # History of methamphetamine abuse # History of alcohol abuse disorder Recommendations: ? Noted elevated troponins on repeat labs; as documented previously, patient had clear coronary arteries on [facility] angiogram which was done recently at [facility], troponin elevation at this point likely supply/demand mismatch in the setting of sepsis. ? Recommend switching Coreg to metoprolol XL 25 mg daily as it has less effect on blood pressure. Recommend holding parameters if hypotensive or bradycardic. ? Consider ARB or ARNI, if no contraindications and blood pressure tolerates. ? Consider spironolactone, as it may confer dual benefit in this patient, in the setting of ascites and CHF. ? Continue diuresis with IV Lasix 40 mg daily, monitor for worsening renal function. ? Currently on octreotide drip, monitor for bradycardia as concurrent administration of beta-dennis can increase the risk of bradycardia ? Patient is on a liquid diet, recommend to avoid fluid overload. Strict intake and output monitoring ? Consider CT angiogram if risk for pulmonary embolism is high or venous duplex if concern for DVT ? Recommend to continue telemetry monitoring for presence of any life- threatening arrhythmias. Recommend patient to follow-up with automotive technician Dr. Whitman on outpatient basis when patient stable for discharge. Rest of the management deferred to primary team. Thank you for cardiology consultation. We appreciate the opportunity to participate in this patient's care. Will continue to follow-up on this patient, Recommend patient to follow-up with automotive technician Dr. Whitman on outpatient basis upon discharge. This case was discussed with automotive technician, Dr. Osborne. Cecile Landis MD PG3 Attending Provider Attestation/Addendum I have personally seen and examined the patient separately on the above date of service and discussed the plan of care with the resident. I reviewed the resident consultation progress note and agree with the resident findings and plan in the note above and have also edited the documentation to reflect my findings and plan. Chidi Osborne M.D. Interventional Cardiology
[2025-01-21 18:31] LABS: Reflex Lactate? Y
[2025-01-21 19:31] LABS: Lactic Acid, 3 HR 2.9 mMol/L (0.4-2.0)
--- NOTE | 2025-01-21 20:18 | ESPR_ITS ---
Documentation for date of: 01/21/25 Subjective Subjective Interval history: Patient evaluated hemoglobin hematocrit stable Rapid response today because of the hypoxemia resolved with Narcan most likely due to opiate overdose Exam Vital Signs Temp Pulse Resp BP Pulse Ox O2 Del Method O2 Flow Rate 96.5 F L 75 20 101/83 93 L Nasal Cannula 2 01/21/25 16:00 01/21/25 17:03 01/21/25 17:03 01/21/25 16:00 01/21/25 16:00 01/21/25 16:00 01/21/25 16:00 Objective Labs 01/21/25 04:49 01/21/25 04:49 Labs: Laboratory Results - last 24 hr 01/21/25 01/21/25 01/21/25 01:18 04:49 14:43 WBC 7.4 RBC 4.90 Hgb 14.8 Hct 45.1 MCV 92 MCH 30.2 MCHC 32.8 RDW Std Deviation 53.4 H Plt Count 288 Neut % (Auto) 50 Lymph % (Auto) 36 [place] % (Auto) 10 Eos % (Auto) 3 Baso % (Auto) 1 Neut # (Auto) 3.7 Lymph # (Auto) 2.7 [place] # (Auto) 0.8 Eos # (Auto) 0.2 Baso # (Auto) 0.1 Immature Gran # (Auto) 0.02 H Absolute Nucleated RBC 0.00 Immature Gran % 0 Nucleated RBC % 0 Puncture Site ABG pH ABG pCO2 ABG pO2 ABG HCO3 ABG O2 Saturation ABG Base Excess Oxygen Liter Flow Sodium 137 Potassium 3.9 Chloride 102 Carbon Dioxide 23.0 Anion Gap 12 BUN 15 Creatinine 1.2 Estim Creat Clear Calc 68.8 eGFR > 60 BUN/Creatinine Ratio 13 Glucose 104 Calculated Osmolality 274 L Lactic Acid 3.2 H Calcium 8.9 Corrected Calcium 9.5 Phosphorus 3.5 Magnesium 1.8 Total Bilirubin 1.2 AST 215 H ALT 286 H Alkaline Phosphatase 72 Troponin I 1.352 H* Total Protein 5.9 Albumin 3.3 L Globulin 2.6 Albumin/Globulin Ratio 1.3 Stool Occult Blood Positive A 01/21/25 01/21/25 14:52 19:14 WBC RBC Hgb Hct MCV MCH MCHC RDW Std Deviation Plt Count Neut % (Auto) Lymph % (Auto) [place] % (Auto) Eos % (Auto) Baso % (Auto) Neut # (Auto) Lymph # (Auto) [place] # (Auto) Eos # (Auto) Baso # (Auto) Immature Gran # (Auto) Absolute Nucleated RBC Immature Gran % Nucleated RBC % Puncture Site Right Radial ABG pH 7.32 L ABG pCO2 49 H ABG pO2 125 H ABG HCO3 25 ABG O2 Saturation 99 H ABG Base Excess -1 Oxygen Liter Flow 15 Sodium Potassium Chloride Carbon Dioxide Anion Gap BUN Creatinine Estim Creat Clear Calc eGFR BUN/Creatinine Ratio Glucose Calculated Osmolality Lactic Acid 2.9 H Calcium Corrected Calcium Phosphorus Magnesium Total Bilirubin AST ALT Alkaline Phosphatase Troponin I Total Protein Albumin Globulin Albumin/Globulin Ratio Stool Occult Blood Impressions Impression: 1+ esophageal varices nonbleeding at the time of endoscopy Hypertensive portal gastropathy with mucosal oozing of blood Duodenitis Continue current management ABG Interpretation ABG results: 01/21/25 14:52 ABG pH 7.32 L ABG pCO2 49 H ABG pO2 125 H ABG HCO3 25 ABG O2 Saturation 99 H ABG Base Excess -1 Assessment & Plan A&P Narrative # Hematemesis # Melena # Chronic liver disease decompensated with cirrhosis advanced portal hypertension and ascites Plan N.p.o. midnight tonight Serial CBC Octreotide 50 mcg/h continuous infusion after loading dose of 50 mcg IV Protonix Consent obtained for fiberoptic esophagogastroduodenoscopy with possible biopsy possible therapeutic intervention under intravenous moderate sedation Advised complete abstinence from drugs and alcohol Prognosis guarded Agree with Zosyn coverage Will follow the patient Thank you very much for the opportunity to participate in care of this patient Other medical problems include Elevated troponin Chronic liver disease secondary to alcohol with negative MRCP Time Spent With Patient Time: Total time spent is greater than 50% in coordination of care (as documented) at patient's floor/unit and/or counseling patient:
[2025-01-22] VITALS (20 sets, daily range): BP systolic 101–124; BP diastolic 62–85; PULSE 73–90; RESP 14–20; TEMP 35.9–36.9; O2SAT 93–100; BMI 22.0; BMI 21.9; BMI 13.0
[2025-01-22 00:47] LABS: Base Excess -1 (-3-3); HCO3 22 mEq/L (20-26); Inspired Oxygen, FIO2 21 %; O2 Saturation 101 % (91-98); PCO2 33 mmHg (32.0-48.0); PO2 266 mmHg (83-108); pH, Arterial 7.43 (7.35-7.45)
[2025-01-22 00:48] LABS: Allen Test Not Performed; Puncture Site Arterial Line
--- NOTE | 2025-01-22 01:49 | PC.RT ---
at 2345 per nurse spo2 dropping pt on 8L oxymasx increased flow to 15L spo2 95% no distress noted RR20, hr 84, spo2 95%, at 0017 per nurse spo2 dropping went to assess pt change pulse oxymeter spo2 reading fluctuating from 70s to 90s, unable to get an accurate spo2 reading called Dr. Vallejo and Zarina abg ordered, and draw at 00:35 pt remain on 15L oxy at the time abg drawn sats reading 79-93, post results pao2 of 266 sats 101, attemted to contact Dr. Vallejo no answered, at 0133 unable to get a saturation on the monitor place pt on high flow 15L 100%, pt in no distress able to get ahold of DR. Durán and abg follow up ordered post high flow.
[2025-01-22] MEDS: MIDODRINE 5 MG TABLET 10 MG PO ×3 (05:52→23:00)
[2025-01-22] MEDS: cefTRIAXone 2 GM in SODIUM CHLORIDE 0.9% (Popper) 50 ML IV (08:14)
[2025-01-22] MEDS: LOSARTAN POTASSIUM 25 MG TABLET PO (08:16)
[2025-01-22] MEDS: SPIRONOLACTONE 25 MG TABLET 50 MG PO ×2 (08:17→11:16)
[2025-01-22] MEDS: METOPROLOL SUCCINATE XL 25 MG TABCR PO (08:17)
[2025-01-22] MEDS: FUROSEMIDE INJ 10 MG/ML 4ML VIAL 40 MG IVP (08:22)
--- NOTE | 2025-01-22 09:08 | PD.RESPRO ---
Documentation for date of: 01/22/25 Subjective Subjective Interval history: Patient as well as bedside, mental status does seem improved, reported improvement in abdominal pain and distention, no acute overnight events or arrhythmias reported on telemetry. Noted the patient is on midodrine as well as antihypertensive medications and diuretics, recommend holding off on diuretics Lasix, spironolactone and losartan if primary team is concerned about hypotension, patient does not need guideline directed medical therapy for HFrEF on long-term basis, GDMT can be resumed at a later date when blood pressure is stable. Recommend patient to follow-up with his clinical research management associate Dr. Borrego on outpatient basis, when patient is medically stable for discharge. Exam Vital Signs Temp Pulse Resp BP Pulse Ox O2 Del Method O2 Flow Rate 97.5 F 75 18 124/85 H 100 Nasal Cannula 3 01/22/25 07:59 01/22/25 08:22 01/22/25 07:59 01/22/25 08:22 01/22/25 07:59 01/22/25 07:59 01/22/25 07:59 FiO2 100 01/22/25 07:59 Narrative Exam General: Patient is Solomon Islander speaker, unkempt appearance, alert and oriented physical exam today. Skin: Intact, no cyanosis, noted sacral edema HEENT: Atraumatic/normocephalic, PAOLA, neck supple Heart: RRR, S1 and S2 without clicks or murmurs Lungs: Clear on auscultation bilaterally, no difficulty breathing Abdomen: Noted improvement in tenderness and distention today, soft abdomen, bowel sounds positive. Vascular: Peripheral pulses palpable Neuro: Able to move all 4 extremities, no focal neurological deficit noted, unable to assess her mental function due to mental status Objective Labs 01/22/25 09:11 01/22/25 09:11 Labs: Laboratory Results - last 24 hr 01/21/25 01/21/25 01/21/25 14:43 14:52 19:14 Puncture Site Right Radial ABG pH 7.32 L ABG pCO2 49 H ABG pO2 125 H ABG HCO3 25 ABG O2 Saturation 99 H ABG Base Excess -1 Oxygen Liter Flow 15 FiO2 Lactic Acid 3.2 H 2.9 H Troponin I 1.352 H* 01/22/25 00:35 Puncture Site Arterial Line ABG pH 7.43 D ABG pCO2 33 D ABG pO2 266 H D ABG HCO3 22 ABG O2 Saturation 101 H ABG Base Excess -1 Oxygen Liter Flow FiO2 21 Lactic Acid Troponin I ABG Interpretation ABG results: 01/21/25 01/22/25 14:52 00:35 ABG pH 7.32 L 7.43 D ABG pCO2 49 H 33 D ABG pO2 125 H 266 H D ABG HCO3 25 22 ABG O2 Saturation 99 H 101 H ABG Base Excess -1 -1 Quality Measures Quality Measures none Assessment & Plan Assessment Current Active Medications: Generic Name Dose Route Start Last Admin Trade Name Freq PRN Reason Stop Dose Admin Acetaminophen 650 mg 01/21/25 08:35 01/21/25 08:58 Acetaminophen 325 Mg Tablet PO 02/17/25 14:35 650 mg Q6H PRN Administration Fever >100 or pain 1-3 Furosemide 40 mg 01/22/25 09:00 01/22/25 08:22 Furosemide Inj 10 Mg/Ml 4ml Vial IVP 02/21/25 08:59 40 mg QDAY WILL Administration Ceftriaxone Sodium 2 gm/ 50 mls @ 100 mls/hr 01/22/25 09:00 01/22/25 08:14 Sodium Chloride IV 01/29/25 08:59 100 mls/hr QDAY WILL Administration Losartan Potassium 25 mg 01/21/25 09:00 01/22/25 08:16 Losartan Potassium 25 Mg Tablet PO 02/20/25 08:59 25 mg QDAY WILL Administration Metoclopramide HCl 5 mg 01/19/25 18:00 01/21/25 17:23 Metoclopramide Inj 5 Mg/Ml Vial 2 Ml IVP 02/18/25 17:59 5 mg Q6HR WILL Administration Protocol Metoprolol Succinate 25 mg 01/21/25 09:00 01/22/25 08:17 Metoprolol Succinate Xl 25 Mg Tabcr PO 02/20/25 08:59 25 mg QDAY WILL Administration Midodrine 10 mg 01/22/25 14:00 Midodrine 5 Mg Tablet PO 02/20/25 13:59 TID WILL Naloxone HCl 0.4 mg 01/21/25 15:07 Naloxone Inj 1 Mg/Ml Syringe 2 Ml IM 02/20/25 14:54 Q3M PRN OPIATE REVERSAL Ondansetron HCl 4 mg 01/18/25 14:36 Ondansetron Inj 2 Mg/Ml Inj 2 Ml IVP 02/17/25 14:35 Q6H PRN NAUSEA OR VOMITING Protocol Pantoprazole Sodium 40 mg 01/18/25 21:00 01/22/25 08:13 Pantoprazole Inj 40 Mg Vial IVP 02/17/25 20:59 40 mg BID WILL Administration Spironolactone 50 mg 01/22/25 09:00 01/22/25 08:17 Spironolactone 25 Mg Tablet PO 02/21/25 08:59 50 mg QDAY WILL Administration Plan Patient is a 49-year-old male with a past medical history of HFrEF, substance abuse disorder, cirrhosis, pleural effusions who presented to the ER due to abdominal swelling and nausea. Complaining of abdominal pain and tenderness, but denied chest pain, endorsed shortness of breath. In the ED patient was noted to be tachypneic and tachycardiac, heart rate in the 120s, respiratory rate 26, saturating well on room air, initial labs showed leukocytosis, and elevated total bilirubin and ALT AST. Noted elevated BNP 2913, EKG showed sinus tachycardia with left anterior fascicular block. Chest x-ray concerning for heart failure. CT abdomen pelvis was done which showed cirrhosis and moderate ascites, minimal fluid in gallbladder, but negative for cholecystitis or choledocholithiasis ultrasound abdomen showed abnormal gallbladder. Urine drug screen positive for methamphetamines. Patient was admitted for acute decompensated liver failure. Dental Ceramist Helper was consulted EGD was done which showed grade 1 varices nonerosive gastritis and erythematous duodenopathy, presence of large amount of fluid in the body of stomach suggestive of gastric motility disorder, currently on octreotide for 24 hours. Echocardiogram was done which showed severe systolic dysfunction with severe global hypokinesis, EF 15 to 20%, mildly dilated RV mild RV dysfunction, estimated RVSP 46, small pericardial effusion. Severely dilated LA. Moderate MR. Blood culture positive for bacillus species in 1/2 bottles repeat blood cultures negative at 24 hours. In 2023, Patient was diagnosed with new onset systolic heart failure in the setting of methamphetamine use, nonischemic cardiomyopathy in March 2024. EF at that time was 20-25 %. At that time patient was initiated on GDMT and was recommended strict abstinence from alcohol and drugs. Cardiology had plan subsequent evaluation for ICD placement and possibility of cardiac transplant if no improvement in 1 to 2 years. The patient was transferred to [facility] for cardiothoracic surgery evaluation during that hospitalization for empyema. Patient had right thoracotomy and decortication procedure done by cardiothoracic surgery. Office Messenger Dr. Whitman followed the patient at [facility], following episode of nonsustained VT during the surgical procedure. Left heart cath at that time showed normal coronary arteries. At that time the patient was given a LifeVest by the clinical research management associate, but compliance was an issue and they had to return the LifeVest. Per patient's sister, there was plan to place an ICD but patient was noncompliant with cardiology recommendations and was still using methamphetamine. Recommend to continue telemetry monitoring for presence of any life-threatening arrhythmias. Recommend patient to follow-up with clinical research management associate Dr. Whitman on outpatient basis. Echocardiogram shows moderately to severely dilated LV, severe systolic dysfunction with severe global hypokinesis, grade 2 diastolic dysfunction, estimated EF 15 to 20%, mildly dilated RV with RV dysfunction, moderately elevated estimated RVSP 46 mm, moderate MR, pleural effusion present, severely dilated left atrium LA volume 53.2, small pericardial effusion. Patient started on Coreg 3.25 mg twice daily, recommend switching to metoprolol XL as it has less effect on blood pressure. Was given IV diuresis Lasix 40 mg x 1, chest x-ray is negative for pulmonary edema, patient does have third spacing with ascites but does not seem to be overtly volume overloaded, though noted slight blunting of CP angles and Bri B-lines positive, noted cephalization of blood flow. And enlarged cardiac shadow. Primary team is concern for spontaneous bacterial peritonitis in the setting of decompensated cirrhosis and ascites and tender abdomen. Patient is also encephalopathic at the moment, blood cultures positive for GNR basilar species in 1/2 bottles, pending repeat cultures. Currently on IV antibiotics ceftriaxone, prophylactic dose. Patient does have cirrhosis EGD showed grade 1 gastric varices and gastritis and duodenopathy as well as concern for gastric motility disorder. Noted elevated D-dimers, no CT angiogram or venous duplex ultrasound is done on this admission. Consider CT angiogram if risk for pulmonary embolism is high or venous duplex if concern for DVT, noted no lower extremity edema on physical exam today. Renal function seems to be around baseline, creatinine 1.2, 01/21/2025 Later in the afternoon patient did have a rapid response for hypoxia and altered mental status, repeat set of labs were ordered including troponin which increased to 1.3, patient did not complain of chest pain, vitals including blood pressure and heart rate were stable. Encephalopathy likely medication induced patient was given IV Dilaudid, but also possible underlying hepatic encephalopathy given diagnosis of cirrhosis as well as toxic encephalopathy given underlying sepsis and bacteremia. Of note, as documented previously, patient had clear coronary arteries on [facility] angiogram which was done recently at [facility], troponin elevation at this point likely supply/demand mismatch in the setting of sepsis. Prognosis does seem to be guarded given endorgan failure, underlying sepsis and bacteremia. 01 22 2025 no acute overnight events, no arrhythmias reported on telemetry. Patient denied chest pain and shortness of breath. Reported improvement in abdominal pain, noted improvement in mental status. Continue antibiotics, recommend patient to follow-up with clinical research management associate Dr. Whitman on outpatient basis when he is medically stable for discharge. Problems: # Acute on chronic systolic heart failure # Dilated cardiomyopathy # Type II NSTEMI # Acute toxic/encephalopathy # Gram-negative bacteremia # Lactic Acidosis # Decompensated cirrhosis # Hyperbilirubinemia # Transaminesemia # Concern for SBP # Pericardial effusion?no evidence of tamponade # Pleural effusion # Elevated D-dimers # History of methamphetamine abuse # History of alcohol abuse disorder Recommendations: ? Noted elevated troponins on repeat labs; as documented previously, patient had clear coronary arteries on [facility] angiogram which was done recently at [facility], troponin elevation at this point likely supply/demand mismatch in the setting of sepsis. ? Recommend switching Coreg to metoprolol XL 25 mg daily as it has less effect on blood pressure. Recommend holding parameters if hypotensive or bradycardic. ? Noted the patient is on midodrine as well as antihypertensive medications and diuretics, recommend holding off on diuretics Lasix, spironolactone and losartan if primary team is concerned about hypotension, patient does need guideline directed medical therapy for HFrEF on long-term basis, GDMT can be resumed at a later date when blood pressure is stable. ? Consider CT angiogram if risk for pulmonary embolism is high or venous duplex if concern for DVT ? Recommend to continue telemetry monitoring for presence of any life-threatening arrhythmias. Recommend patient to follow-up with clinical research management associate Dr. Whitman on outpatient basis when patient stable for discharge. Rest of the management deferred to primary team. Thank you for cardiology consultation. We appreciate the opportunity to participate in this patient's care. Will continue to follow-up on this patient, Recommend patient to follow-up with clinical research management associate Dr. Whitman on outpatient basis upon discharge. This case was discussed with clinical research management associate, Dr. Osborne. Cecile Landis MD PG3 Attending Provider Attestation/Addendum I have personally seen and examined the patient separately on the above date of service and discussed the plan of care with the resident. I reviewed the resident consultation progress note and agree with the resident findings and plan in the note above and have also edited the documentation to reflect my findings and plan. Chidi Osborne M.D. Interventional Cardiology
--- NOTE | 2025-01-22 09:36 | ESPR_ITS ---
<Statement entered by Zeyad Herman MD - 01/22/25 19:30> I have reviewed the note and agree with the resident's assessment & plan with exceptions as below. I have personally reviewed labs, imaging, home meds/prior records, examined the patient, formulated and discussed management plan with the IM team. Patient examined in bed at bedside today. Cardiology on culture, appreciate recommendations. Patient is currently 3.4 L net positive on admission. Will increase diuresis to IV 40 Lasix and spironolactone 100 mg. Goal of diuresis for patient is at least negative 1.5 to 2.5 L. Patient has multi factorial overload due to his history of cirrhosis and severe HFrEF. Repeat hematology and chemistry in AM. Zeyad Herman, PGY-2 Internal Medicine Documentation for date of: 01/22/25 Subjective Subjective Interval history: Patient had oxygen drop last night, but recovered when his mask was placed back on his face. Today, patient examined bedside, -790 net 24 hrs I/Os. 97% on RA. He states improved abdominal symptoms. He reports improved pain in his abdomen, no pain or difficulty breathing. Exam Vital Signs Temp Pulse Resp BP Pulse Ox O2 Del Method O2 Flow Rate 97.5 F 75 18 124/85 H 100 Nasal Cannula 3 01/22/25 07:59 01/22/25 08:22 01/22/25 07:59 01/22/25 08:22 01/22/25 07:59 01/22/25 07:59 01/22/25 07:59 FiO2 100 01/22/25 07:59 Narrative Exam GENERAL APPEARANCE: AOx3. NAD,fatigued, well developed/ well nourished, no cyanosis, pallor, or diaphoresis. HEENT: Normocephalic atraumatic, no facial trauma, neck is supple. Lids/conjunctiva normal. Mucous membranes moist, nares normal, lips/teeth normal uvula midline without oral pharyngeal erythema, exudate or swelling TMs normal bilaterally. No lymphangitis/lymphedema. No scleral icterus CARDIAC: RRR, no edema. No murmurs, rubs, or gallops noted RESPIRATORY: respiratory effort normal, speaks in full sentences, no tripod position, no accessory muscle use. Lungs clear to auscultation without rhonchi, wheezes, rales ABDOMINAL: NBS. Soft, improved distension, Much improved TTP, most TTP in Right quadrants. No evidence of fluid wave. No pulsatile masses on exam, rebound tenderness, Negative Young sign, no pain over Mcburney's point. No signs of acute abdomen, guarding, rebound tension. Fluid wave+ MUSCLES/EXTREMITIES: No abnormal range of motion, no swelling. No edema, missing 3rd and 4th distal phalanges on Left hand DERM: Warm, pink and dry. No rashes, dermatoses, petechiae or lesions. NEUROLOGICAL: Speech is clear and appropriate. Normal level of consciousness. Gait and coordination are normal. 5/5 strength in all extremities. PSYCH: Normal mood and affect. Judgement/competence is appropriate Objective Labs 01/23/25 04:26 01/23/25 04:26 Labs: Laboratory Results - last 24 hr 01/21/25 01/21/25 01/21/25 14:43 14:52 19:14 Puncture Site Right Radial ABG pH 7.32 L ABG pCO2 49 H ABG pO2 125 H ABG HCO3 25 ABG O2 Saturation 99 H ABG Base Excess -1 Oxygen Liter Flow 15 FiO2 Lactic Acid 3.2 H 2.9 H Troponin I 1.352 H* 01/22/25 00:35 Puncture Site Arterial Line ABG pH 7.43 D ABG pCO2 33 D ABG pO2 266 H D ABG HCO3 22 ABG O2 Saturation 101 H ABG Base Excess -1 Oxygen Liter Flow FiO2 21 Lactic Acid Troponin I ABG Interpretation ABG results: 01/21/25 01/22/25 14:52 00:35 ABG pH 7.32 L 7.43 D ABG pCO2 49 H 33 D ABG pO2 125 H 266 H D ABG HCO3 25 22 ABG O2 Saturation 99 H 101 H ABG Base Excess -1 -1 Quality Measures Quality Measures none Assessment & Plan Assessment Current Active Medications: Generic Name Dose Route Start Last Admin Trade Name Freq PRN Reason Stop Dose Admin Acetaminophen 650 mg 01/21/25 08:35 01/21/25 08:58 Acetaminophen 325 Mg Tablet PO 02/17/25 14:35 650 mg Q6H PRN Administration Fever >100 or pain 1-3 Furosemide 40 mg 01/22/25 09:00 01/22/25 08:22 Furosemide Inj 10 Mg/Ml 4ml Vial IVP 02/21/25 08:59 40 mg QDAY WILL Administration Ceftriaxone Sodium 2 gm/ 50 mls @ 100 mls/hr 01/22/25 09:00 01/22/25 08:14 Sodium Chloride IV 01/29/25 08:59 100 mls/hr QDAY WILL Administration Losartan Potassium 25 mg 01/21/25 09:00 01/22/25 08:16 Losartan Potassium 25 Mg Tablet PO 02/20/25 08:59 25 mg QDAY WILL Administration Metoclopramide HCl 5 mg 01/19/25 18:00 01/21/25 17:23 Metoclopramide Inj 5 Mg/Ml Vial 2 Ml IVP 02/18/25 17:59 5 mg Q6HR WILL Administration Protocol Metoprolol Succinate 25 mg 01/21/25 09:00 01/22/25 08:17 Metoprolol Succinate Xl 25 Mg Tabcr PO 02/20/25 08:59 25 mg QDAY WILL Administration Midodrine 10 mg 01/22/25 14:00 Midodrine 5 Mg Tablet PO 02/20/25 13:59 TID WILL Naloxone HCl 0.4 mg 01/21/25 15:07 Naloxone Inj 1 Mg/Ml Syringe 2 Ml IM 02/20/25 14:54 Q3M PRN OPIATE REVERSAL Ondansetron HCl 4 mg 01/18/25 14:36 Ondansetron Inj 2 Mg/Ml Inj 2 Ml IVP 02/17/25 14:35 Q6H PRN NAUSEA OR VOMITING Protocol Pantoprazole Sodium 40 mg 01/18/25 21:00 01/22/25 08:13 Pantoprazole Inj 40 Mg Vial IVP 02/17/25 20:59 40 mg BID WILL Administration Spironolactone 50 mg 01/22/25 09:00 01/22/25 08:17 Spironolactone 25 Mg Tablet PO 02/21/25 08:59 50 mg QDAY WILL Administration Plan Assessment 49 year old male with recent admission for sepsis 2/2 PNA and ADHF 2/2 PSUD, hx of pleural effusions, and chronic alcoholism, who presented to the Emergency Department with abdominal swelling for the past week, associated with nausea but no vomiting or diarrhea. Patient admitted for acute decompensated liver failure. EGD done today. Diuretics held due to concern for hepatorenal syndrome. Will diurese 01/19 due to +IOs and SOB and improved renal function. D/c carvedlilol, initiating metop XR, increasing lasix and spiranolocatone to 40mg and 100mg. #Decompensated liver failure #Cirrhosis #Transaminitis #Possible SBP P/w abdominal pain and ascites. Chronic alcoholism. No signs of jaundice or scleral icterus, no asterixis, no encephalopathy. Fluid wave negative. PT: 16.7 INR: 1.6, AST: 464, ALT: 457. Direct Bilirubin: 1.2. LDH: 618, CTAP: mild to moderate ascites. Attempted paracentesis but per rads not enough fluid to drain. Increasing lasix to 40mg QD. Plan: -Ceftriaxone 1g IV QD -Lasix 40mg IV QD - DC -Lasix 20mg QD --> 40mg QD -Spironolactone 100 mg PO QD (hold if BP <100 systolic, diastolic <60) -Midodrine 10mg PO TID -Octreotide drip 1000mcg IV 50mcg/hr -stop at 24 hours per GI -Zofran 4mg IVP Q6H PRN -Strict Is/Os -Daily weights -SCDs -IV NS -Hep B panel: Non reactive -HIV panel: Negative #RUQ pain #Possible PNA During COMPUTER TRAINER a chest xray revealed PNA and atelectasis of right lung base. This could be confused with abdominal pain due to cirrhosis. Plan: -Continue tylenol pain management, max dose of 2g ove 24 hours -Already on treating dose of rocephin for c/f SBP #NSTEMI II #Acute decompensated heart failure 2/ #meth use Hx of ECHO 03/2024 EF: 20-25%. Denies chest pain, SOB, and palpitations, endorses stomach pain. EKG L anterior fasicular block, ST-T wave changes. Meth+, Troponins resolved. BNP: 485. D-dimer: 2059. CXR: vascular congestion and early signs of HF. Most likely NSTEMI II in setting of demand ischemia due to meth use. Holding carvedilol while initiating metop, increaseing sprinaolocatone to 100mg and lasix to 40mg. Plan: -ECHO: Moderate to severely dilated LV. Severe systolic dysfunction with severe global hypokinesis. Grade II diastolic dysfucntion. Estimated EF 15-20% -Monitor for worsening signs of HF -[facility]125 mgPO BIDWM - Hold while on metop, don't want 2x Beta blockers -Cards consulted: -Lasix 1x 01/20 (creatinine improved) -Spironolactone 100 mg PO QD (hold if BP <100 systolic, diastolic <60) -Octreotide drip 1000mcg IV 50mcg/hr -stop at 24 hours per GI -Losartan 25mg PO QD -Metoprolol succinate 25mg PO QD -Midodrine 10mg PO TID #Melena #Upper vs Lower GI bleed ddx; Upper (abdominal pain, hx of alcoholism PUD likely) vs lower GI bleed( dark red blood, no bright streaks in stool), vs esophageal varices (less likely due to no bright red blood). Dark tarry stool. No hemoptysis on exam. Normal hemoglobin Plan: -FOBT: Positive -GI consulted -Reglan 5mg IV push -Octreotide DC at 24 hours -EGD: Grade 1 esophageal varices, non erosive gastritis characterized by erythema, erythematous duodenopathy, concerned for gastric motility disorder based on presence of large amount of fluid in the stomach #COMPUTER TRAINER Dilaudid and narco given due to diffuse abdominal pain. patient had decreased respiratory drive, took off his oxygen mask and desaturated. lactic acid was done, EKG: showed new T wave abnormalities and prolonged QT interval. business continuity global director called low pH barely acidotic on pH PCO2 49, pO2L 125, O2 saturation 99%. lactic acid 3.2 --> 2.9. Troponins 1.352 cards consulted and stated type 2 demand ischmemia. IR declined to drain ascitic fluid stating it was too minimal. Held reglan due to prolonged QT interval. Chest xray showed PNA and atelectasis at the right base Plan: -Naloxone PRN -DC narco -Tylenol for pain #Chronic alcoholism #CIWA Patient drinks 32 Oz [place] 2x/day Plan: -CIWA protocols in place #MARQUITA #Hepatorenal syndrome? MARQUITA improving Creatinine 1.2 BUN: 15 today Plan: -Continue to monitor renal function Health Maintenance: DVT prophylaxis: SCDs Diet: Cardiac Hernandez: None GI prophylaxis: 40mg IVP protonix Lines: PIV Supplemental O2: Nasal cannula CODE STATUS: Full Disposition: Admitted to tele floors for Decompensated liver failure and ADHF 2/2 meth use Patient seen and reviewed with attending Dr. Martin and supervising resident Dr. Leung. Note written by Anton Baker MD PGY-1 Attending Provider Attestation/Addendum I reviewed labs, imaging, EKG, home medications and prior available records. Face to face evaluation was performed by me. I have personally examined the patient and discussed assessment and plan with the IM team. I reviewed the resident note and agree with the plan with exceptions as below. Decompensated cirrhosis HFrEF EF 15 to 20% Acute encephalopathy, likely in the setting of opioid use GI bleed Continue Lasix and spironolactone Status post EGD that showed esophageal varices grade 1 and gastritis Continue Protonix twice daily Follow-up PT evaluation
[2025-01-22 09:42] LABS: Basophils # (Auto) 0.1 Thou/mm3 (0.0-0.2); Basophils % (Auto) 1 % (0-2.5); Eosinophils # (Auto) 0.2 Thou/mm3 (0.0-0.5); Eosinophils % (Auto) 2 % (0-10); Hematocrit 47.4 % (41.0-53.0); Hemoglobin 15.7 g/dL (13.5-16.0); Immature Granulocytes Auto 0.03 Thou/mm3 (0.00-0.00); Lymphocytes # (Auto) 2.8 Thou/mm3 (1.0-4.8); Lymphocytes % (Auto) 28 % (10-50); Mean Corpuscular HGB Conc 33.1 g/dl (31.0-37.0); Mean Corpuscular Hemoglobin 29.8 pg (25.0-35.0); Mean Corpuscular Volume 90 fL (80-100); Monocytes # (Auto) 1.1 Thou/mm3 (0.0-0.8); Monocytes % (Auto) 11 % (0-12); Neutrophils # (Auto) 5.7 Thou/mm3 (1.8-7.7); Neutrophils % (Auto) 58 % (37-80); Nucleated Red Blood Cell # 0.00 Thou/mm3 (0.00-0.00); Nucleated Red Blood Cell % 0 /100 WBC (0); Platelet Count 305 Thou/mm3 (140-440); RDW Standard Deviation 52.7 fL (35.1-43.9); Red Blood Count 5.26 Miln/mm3 (4.50-5.90); White Blood Count 9.9 Thou/mm3 (3.8-10.6)
[2025-01-22 09:58] LABS: Alanine Aminotransferase 349 U/L (10-49); Albumin, Serum 3.2 gm/dL (3.5-5.0); Albumin/Globulin Ratio 1.1 (1.2-2.2); Alkaline Phosphatase 69 U/L (46-116); Anion Gap 11 (7-16); Aspartate Amino Transferase 379 U/L (0-34); BUN/Creatinine Ratio 14 Ratio (12-20); Bilirubin,Total 1.3 mg/dL (0.3-1.2); Blood Urea Nitrogen 15 mg/dL (9-23); Calcium 8.7 mg/dL (8.3-10.6); Calcium (Corrected) 9.3 mg/dL (8.5-10.1); Carbon Dioxide 24.4 mMol/L (20.0-31.0); Chloride 102 mMol/L (98-107); Creatinine (Component) 1.1 mg/dL (0.6-1.3); Estimated Creatinine Clearance 74.7 mL/min (>60); Globulin 2.8 gm/dL (2.3-3.5); Glucose 77 mg/dL (74-106); Magnesium 1.8 mg/dL (1.6-2.6); Osmolality,Calculated 273 (275-295); Phosphorous 3.3 mg/dL (2.4-5.1); Potassium 4.3 mMol/L (3.4-5.1); Sodium 137 mMol/L (136-145); Total Protein 6.0 gm/dL (5.7-8.2); eGFR > 60 See Note
[2025-01-22] MEDS: Magnesium Sulfate 2 GM Ivpb 2 GM/50 ML BAG IV (10:19)
--- NOTE | 2025-01-22 14:59 | PC.NURSE ---
Dr. Morfin aware pt. complaining of abdominal pain 02/06. at bedside and states i will order something
--- NOTE | 2025-01-22 15:12 | PC.NURSE ---
Dr. Baker orders to continue with Tylenol, is aware of cirrhosis diagnosis and orders to give tylenol we will keep pt. under the suggested 2g of tylenol per day.
[2025-01-22] MEDS: ACETAMINOPHEN 325 MG TABLET 650 MG PO (15:17)
--- NOTE | 2025-01-22 16:37 | PC.PT ---
Patient is safe to ambulate to the bathroom with 1 staff assist. RN made aware.
--- NOTE | 2025-01-22 20:28 | PD.IMPROG ---
Documentation for date of: 01/22/25 Subjective Subjective Interval history: Hemoglobin hematocrit stable at 15.7 and 47.4 Exam Vital Signs Temp Pulse Resp BP Pulse Ox O2 Del Method O2 Flow Rate 98.0 F 84 16 106/75 95 Room Air 3 01/22/25 20:00 01/22/25 20:00 01/22/25 20:00 01/22/25 20:00 01/22/25 20:00 01/22/25 20:00 01/22/25 18:54 FiO2 100 01/22/25 11:59 Objective Labs 01/22/25 09:11 01/22/25 09:11 Labs: Laboratory Results - last 24 hr 01/22/25 01/22/25 00:35 09:11 WBC 9.9 RBC 5.26 Hgb 15.7 Hct 47.4 MCV 90 MCH 29.8 MCHC 33.1 RDW Std Deviation 52.7 H Plt Count 305 Neut % (Auto) 58 Lymph % (Auto) 28 Edmonson % (Auto) 11 Eos % (Auto) 2 Baso % (Auto) 1 Neut # (Auto) 5.7 Lymph # (Auto) 2.8 Edmonson # (Auto) 1.1 H Eos # (Auto) 0.2 Baso # (Auto) 0.1 Immature Gran # (Auto) 0.03 H Absolute Nucleated RBC 0.00 Immature Gran % 0 Nucleated RBC % 0 Puncture Site Arterial Line ABG pH 7.43 D ABG pCO2 33 D ABG pO2 266 H D ABG HCO3 22 ABG O2 Saturation 101 H ABG Base Excess -1 FiO2 21 Sodium 137 Potassium 4.3 Chloride 102 Carbon Dioxide 24.4 Anion Gap 11 BUN 15 Creatinine 1.1 Estim Creat Clear Calc 74.7 eGFR > 60 BUN/Creatinine Ratio 14 Glucose 77 Calculated Osmolality 273 L Calcium 8.7 Corrected Calcium 9.3 Phosphorus 3.3 Magnesium 1.8 Total Bilirubin 1.3 H AST 379 H ALT 349 H Alkaline Phosphatase 69 Total Protein 6.0 Albumin 3.2 L Globulin 2.8 Albumin/Globulin Ratio 1.1 L Impressions Impression: 1+ esophageal varices Gastric mucosa bleed in the setting of portal hypertension and hypertensive portal gastropathy Continue present treatment ABG Interpretation ABG results: 01/21/25 01/22/25 14:52 00:35 ABG pH 7.32 L 7.43 D ABG pCO2 49 H 33 D ABG pO2 125 H 266 H D ABG HCO3 25 22 ABG O2 Saturation 99 H 101 H ABG Base Excess -1 -1 Assessment & Plan A&P Narrative # Hematemesis # Melena # Chronic liver disease decompensated with cirrhosis advanced portal hypertension and ascites Plan N.p.o. midnight tonight Serial CBC Octreotide 50 mcg/h continuous infusion after loading dose of 50 mcg IV Protonix Consent obtained for fiberoptic esophagogastroduodenoscopy with possible biopsy possible therapeutic intervention under intravenous moderate sedation Advised complete abstinence from drugs and alcohol Prognosis guarded Agree with Zosyn coverage Will follow the patient Thank you very much for the opportunity to participate in care of this patient Other medical problems include Elevated troponin Chronic liver disease secondary to alcohol with negative MRCP Time Spent With Patient Time: Total time spent is greater than 50% in coordination of care (as documented) at patient's floor/unit and/or counseling patient:
[2025-01-23] VITALS (14 sets, daily range): BP systolic 105–120; BP diastolic 72–85; PULSE 72–83; RESP 15–95; TEMP 36.1–36.8; O2SAT 95–96; BMI 21.2
[2025-01-23] MEDS: ACETAMINOPHEN 325 MG TABLET 650 MG PO (03:06)
[2025-01-23] MEDS: LACTULOSE SYRUP 20 GM/30 ML UDC PO (04:56)
[2025-01-23] MEDS: MIDODRINE 5 MG TABLET 10 MG PO ×2 (05:01→14:30)
[2025-01-23 06:30] LABS: Basophils # (Auto) 0.1 Thou/mm3 (0.0-0.2); Basophils % (Auto) 1 % (0-2.5); Eosinophils # (Auto) 0.3 Thou/mm3 (0.0-0.5); Eosinophils % (Auto) 3 % (0-10); Hematocrit 45.2 % (41.0-53.0); Hemoglobin 15.0 g/dL (13.5-16.0); Immature Granulocytes Auto 0.05 Thou/mm3 (0.00-0.00); Lymphocytes # (Auto) 2.7 Thou/mm3 (1.0-4.8); Lymphocytes % (Auto) 24 % (10-50); Mean Corpuscular HGB Conc 33.2 g/dl (31.0-37.0); Mean Corpuscular Hemoglobin 30.1 pg (25.0-35.0); Mean Corpuscular Volume 91 fL (80-100); Monocytes # (Auto) 1.2 Thou/mm3 (0.0-0.8); Monocytes % (Auto) 10 % (0-12); Neutrophils # (Auto) 7.0 Thou/mm3 (1.8-7.7); Neutrophils % (Auto) 62 % (37-80); Nucleated Red Blood Cell # 0.00 Thou/mm3 (0.00-0.00); Nucleated Red Blood Cell % 0 /100 WBC (0); Platelet Count 318 Thou/mm3 (140-440); RDW Standard Deviation 53.6 fL (35.1-43.9); Red Blood Count 4.98 Miln/mm3 (4.50-5.90); White Blood Count 11.2 Thou/mm3 (3.8-10.6)
[2025-01-23 06:57] LABS: Alanine Aminotransferase 270 U/L (10-49); Albumin, Serum 3.2 gm/dL (3.5-5.0); Albumin/Globulin Ratio 1.3 (1.2-2.2); Alkaline Phosphatase 68 U/L (46-116); Anion Gap 14 (7-16); Aspartate Amino Transferase 219 U/L (0-34); BUN/Creatinine Ratio 18 Ratio (12-20); Bilirubin,Total 1.2 mg/dL (0.3-1.2); Blood Urea Nitrogen 18 mg/dL (9-23); Calcium 8.6 mg/dL (8.3-10.6); Calcium (Corrected) 9.2 mg/dL (8.5-10.1); Carbon Dioxide 24.4 mMol/L (20.0-31.0); Chloride 101 mMol/L (98-107); Creatinine (Component) 1.0 mg/dL (0.6-1.3); Estimated Creatinine Clearance 79.5 mL/min (>60); Globulin 2.4 gm/dL (2.3-3.5); Glucose 86 mg/dL (74-106); Magnesium 1.8 mg/dL (1.6-2.6); Osmolality,Calculated 278 (275-295); Phosphorous 3.2 mg/dL (2.4-5.1); Potassium 3.6 mMol/L (3.4-5.1); Sodium 139 mMol/L (136-145); Total Protein 5.6 gm/dL (5.7-8.2); eGFR > 60 See Note
[2025-01-23] MEDS: SPIRONOLACTONE 25 MG TABLET 100 MG PO (08:24)
[2025-01-23] MEDS: LOSARTAN POTASSIUM 25 MG TABLET PO (08:24)
[2025-01-23] MEDS: DOCUSATE SOD LIQD 100 MG/10 ML UDC PO (08:25)
[2025-01-23] MEDS: FUROSEMIDE INJ 10 MG/ML 4ML VIAL 40 MG IVP (08:25)
[2025-01-23] MEDS: cefTRIAXone 2 GM in SODIUM CHLORIDE 0.9% (Popper) 50 ML IV (08:26)
[2025-01-23] MEDS: METOPROLOL SUCCINATE XL 25 MG TABCR PO (08:26)
[2025-01-23] MEDS: POTASSIUM CHL 10 mEq IVPB 10 MEQ/100 ML BAG 100 MEQ IV (08:27)
[2025-01-23] MEDS: POTASSIUM CHLORIDE 10% 20 MEQ/15 ML UDC 40 MEQ PO (11:32)
--- NOTE | 2025-01-23 13:10 | PC.SS ---
Follow up note: SS met with patient with foreign language interpreter and floor nurse. Patient is from home and will d/c home today. Patient worked with PT. SS verified with PT that they recommend HH services only. Patient does not need SNF. Patient confirmed he already has a walker at home. Patient was being seen by [facility]. Patient last appt. was 2 months ago. Pharmacy: [facility]. Patient's family are not answering their phones and do not have voice mail set up. However, patient states he has lots of family that he resides with and they are home. Patient also confirmed he also has a mckeon to his home. Patient can d/c via medi van and will need a wheelchair to sit in. SS discussed with patient and floor nurse we can set up medi van transport for later this afternoon. UPdated physician team who will change order to HH for medication managment, safety eval and PT.
--- NOTE | 2025-01-23 15:22 | PD.RESDS ---
Planned Discharge Date 01/23/25 DS: Providers Provider Date of admission: 01/20/25 15:17 Primary care physician: Ashu Holcomb MD Admitting Provider: Matti Ernandez DO Attending Provider on Admission: Alex Martin MD Consults: 01/18/25 17:04 Health Equity Referral - Nutrition Routine Comment: Positive screening for nutrition needs. Health Equity Referral - Safety Routine Comment: Positive screening for safety needs. Health Equity Referral - Transportation Routine Comment: Positive screening for transportation needs. Health Equity Referral - Utilities Routine Comment: Positive screening for utility assistance needs. 01/18/25 18:10 Consult to Gastroenterology Routine Comment: cirrhosis Consulting Provider: Maryan Palmer 01/20/25 13:56 Consult to Cardiology Routine Comment: Consulting Provider: Chidi Osborne Instructions: hfref 01/22/25 10:12 Referral Physical Therapy Routine Comment: Physician Instructions: Attending Provider on DC: Jaky Leung MD Discharging Provider: Jaky Leung MD DS: Diagnosis Problem List Completed Was Problem List Reviewed/Reconciled?: Yes Hospital Course Hospital Course Hospital course: A 49-year-old male patient with past medical history of alcohol use disorder, liver cirrhosis, meth abuse, presented to the ED due to worsening abdominal distention associated with nausea, he also reported black tarry stool. On evaluation patient was found to have heart rate of 120, respiratory rate of 26, and CT abdomen and pelvis showed mild to moderate ascites which was nontender for paracentesis with thickening of the gallbladder, cystitis. He tested positive for meth. On evaluation patient was found to have decompensated liver cirrhosis and SBP in which she was started on ceftriaxone 2 g IV, spironolactone, Lasix, midodrine blood pressure was on the soft side. He underwent EGD in which she was found to have esophageal varices grade 1. Patient was continued on octreotide for 3 days, Protonix. Has hospital course was complicated by increased troponin in which echocardiogram was done and showed ejection fraction of 15 to 20%. Consultation to the philosophy and religion instructor Dr. Parnell was sent he recommended to start the patient on GDMT. Patient was started on metoprolol, losartan, spironolactone. However because of his low blood pressure patient was started on midodrine. Patient will need to follow-up strictly with hand or machine paster, philosophy and religion instructor, and with his PCP for further recommendations. At this time patient deemed to be clinically stable to be discharged home with home health and was given the following instructions: Discharge instructions: Follow up with your PCP within one week from discharge Compete abstinence from alcohol and meth as it causing significant heart failure and liver failure and can worsen your condition and leads to . Follow up with a philosophy and religion instructor within one week from discharge. Use meds as prescribed In case of low blood pressure with SBP less than 100mmHg take one dose of midodrine 10mg as needed 3 times a day. In case of worsening of your symptoms, please return to the ED as soon as possible. Discharging diagnosis #Liver cirrhosis #SBP #Severe HFrEF with ejection fraction of 15 to 20% #Esophageal varices #Gastritis #History of meth use disorder #History of alcohol use disorder - Patient's plan and care discussed with my attending, Dr. Mario Leung MD Internal Medicine PGY-3 Time Spent with Patient Time attestation: Total time spent providing and/or coordinating discharge services: Time spent: Greater than 30 minutes Home Health Home Health Referral Orders: 01/23/25 14:19 Home Health Referral Routine Reason For Exam: Home PT, safety, and medication management Home-Bound The patient must either because of illness or injury, need the aid of supportive devices such as crutches, canes, wheelchairs, and walkers; the use of special transportation; or the assistance of another person in order to leave their place of residence; OR have a condition such that leaving his or her home is medically contraindicated. In addition, the patient also meets the following criteria: patient is normally unable to leave the home and leaving home requires considerable taxing effort. Addendum to Home Health Certification Practitioner's Certification: I certify that the patient has been under my care in the hospital and the care of attending physician (see below). We had a [id number]-[id number] encounter on (see date below). My clinical findings indicate that the patient is home bound per the above criteria and the Home Health Services noted in these orders are medically necessary. The primary reason for the [id number] encounter is related to the fact that the patient requires home health services. Date Certifying Rmnw-we-Ytbe Physician Encounter: 01/18/25 Physician's Name who will Assume Oversight for Services: Ashu Holcomb [employer] - Community Resources: Yes PT to Evaluate: Yes PT to evaluate and provide a treatmnet plan to increase patient's mobility and strength. Wound Care: No IV Therapy: No RN Safety Evaluation: Yes RN to evaluate and create a plan of care that will produce positive outcomes. Palliative Treatment: No Palliative treatment and evaluate the need for hospice. Home Health Aide - Personal Care: Yes Home Health Aide to assist with any ADL's. Exam Vital Signs Temp Pulse Resp BP Pulse Ox O2 Del Method O2 Flow Rate 97.0 F 72 15 120/82 96 Room Air 3 01/23/25 12:00 01/23/25 14:30 01/23/25 12:00 01/23/25 14:30 01/23/25 12:00 01/23/25 12:00 01/22/25 18:54 FiO2 100 01/22/25 11:59 Narrative Exam GEN: AOx3, Tamazight speaker, able to speak full sentences HEENT: NC/AC, icteric mildly, oral mucosa moist, neck supple CVS: RRR, S1-S2 present, no murmurs appreciated RESP: CTAB GI: soft,non distended, mild abdominal discomfort on palpation, NBS MSK: able to move all 4 limbs, no lower extremity edema SKIN: warm and dry SCHOOL ADMINISTRATOR: CN II-XII and Sensation grossly intact. Discharge Plan Plan Patient Disposition: Xfer Skilled [facility] (SNF) Patient condition on transfer: Stable Care Plan Goals: Discharge instructions: Follow up with your PCP within one week from discharge Compete abstinence from alcohol and meth as it causing significant heart failure and liver failure and can worsen your condition and leads to . Follow up with a philosophy and religion instructor within one week from discharge. Use meds as prescribed In case of low blood pressure with SBP less than 100mmHg take one dose of midodrine 10mg as needed 3 times a day. In case of worsening of your symptoms, please return to the ED as soon as possible. Prescriptions/Referrals Prescriptions/Med Rec: New midodrine 5 mg Tablet 10 mg PO TID PRN (Reason: if SBP less than 90mmHg) 7 Days Qty: 21 0RF losartan 25 mg Tablet 25 mg PO QDAY 7 Days Qty: 7 0RF spironolactone 25 mg Tablet 100 mg PO QDAY 7 Days Qty: 28 0RF pantoprazole 40 mg tablet,delayed release (DR/EC) 40 mg PO QDAY 14 Days Qty: 14 0RF levofloxacin 750 mg tablet 750 mg PO QDAY 7 Days Qty: 7 0RF furosemide [Lasix] 40 mg tablet 40 mg PO QAM 14 Days Qty: 14 0RF Continued metoprolol succinate 25 mg tablet extended release 24 hr 12.5 mg PO QDAY 7 Days Qty: 4 0RF Discontinued acetaminophen-codeine 300-30 mg tablet 2 tab PO TID MDD 6 PRN (Reason: pain) Qty: 20 0RF albuterol sulfate 90 mcg/actuation HFA aerosol inhaler 2 inh inhalation QID PRN (Reason: shortness of breath or wheezing) Qty: 8.5 0RF cefdinir 300 mg capsule 300 mg PO BID Qty: 14 0RF furosemide [Lasix] 20 mg tablet 20 mg PO QDAY Qty: 14 0RF furosemide 40 mg tablet 40 mg PO QDAY Patient Comments: TAKE 1 TABLET BY MOUTH EVERY DAY FOR 60 DAYS Referrals: Ashu Holcomb MD [Primary Care Provider] - Patient/Caregiver Discharge Instructions Discharge Activity: as per physical therapy Education Materials: Addiction: Getting Help, Coping with Heart Failure, Heart Failure Dc Print Language: Tamazight Stand Alone Forms: [employer] Info., Patient Portal Info Letter Discharge Order Discharge Orders: Discharge (Routine); Ordered 01/23/25 Ordered By: Jaky Leung Quality Discharge Quality Measures VTE prophylaxis Attestestation Attestation I reviewed labs, imaging, EKG, home medications and prior available records. Face to face evaluation was performed by me. I have personally examined the patient and discussed assessment and plan with the IM team. I reviewed the resident note and agree with the plan with exceptions as below. Decompensated cirrhosis HFrEF EF 15 to 20% Acute encephalopathy, likely in the setting of opioid use GI bleed Continue Lasix and spironolactone Ordered to ciprofloxacin Status post EGD that showed esophageal varices grade 1 and gastritis Continue Protonix twice daily Ordered home health Outpatient follow-up with hepatology and cardiology Repeat CBC in 1 week Time spent is 40 minutes. More than 50% of the time was spent on patient education and coordination of care.
--- NOTE | 2025-01-23 15:23 | PC.PT ---
Patient is safe to ambulate to the bathroom and in the halls with 1 staff and no AD. RN made aware.
--- NOTE | 2025-01-23 15:26 | PC.CC ---
HH ref sent out, waiting for responses.
--- NOTE | 2025-01-24 12:58 | PC.CM ---
Addendum entered by Sierra Lin RN 01/24/25 18:13: I sent discharge summary to [facility]. Addendum entered by Sierra Lin RN 01/24/25 18:07: correction start of care date for [facility] health 01/25. Original Note: Patient accepted by [facility] and start of care 01/05.
== END 2025-01-23 15:33 | disposition home health service (06) | DRG 190 ==
LOC: SERX 01-18 12:03 → SERHOLD 01-18 13:27 → S2NX 01-19 14:02 → SERHOLD 01-21 06:39 → S2NX 01-21 06:40
PROVIDERS: Emergency Medicine; Nurse Practitioner Primary Care; Specialist; Admitting Provider Student in an Organized Health Care Education/Training Program; Emergency Provider Emergency Medicine; PCP Internal Medicine Hematology; Visit Provider Student in an Organized Health Care Education/Training Program
PROC: (CPT 43239; principal; 2025-01-19 15:00)
DX: I21.4 Non-ST elevation (NSTEMI) myocardial infarction (principal); F15.10 Other stimulant abuse, uncomplicated; K70.30 Alcoholic cirrhosis of liver without ascites; I50.23 Acute on chronic systolic (congestive) heart failure; I42.0 Dilated cardiomyopathy; K72.00 Acute and subacute hepatic failure without coma; K76.6 Portal hypertension; K76.82 Hepatic encephalopathy; K31.89 Other diseases of stomach and duodenum; F10.20 Alcohol dependence, uncomplicated; F19.10 Other psychoactive substance abuse, uncomplicated; J98.11 Atelectasis
CPT/HCPCS: 36415; 36600; 71045; 71046; 74176; 74181; 76705; 80053; 80074; 80307; 80320; 81001; 82042; 82150; 82248; 82270; 82550; 82803; 82945; 83605; 83615; 83690; 83735; 83880; 84100; 84145; 84157; 84443; 84484; 85025; 85379; 85610; 85652; 85730; 86140; 86703; 87040; 87400; 87811; 89051; 93005; 93306; 97162; 99284; A4649; G0378; J0696; J1171; J1200; J1885; J1938; J2250; J2312; J2354; J2405; J2470; J2543; J2765; J3010; J3360; J3475; J3480; J7030; J7050; A9270; G0480

== ENCOUNTER 2025-01-28 17:00 | Inpatient (IN) | payer MEDICAID, SELFPAY ==
[2025-01-28 17:03] VITALS: BP 111/84; PULSE 123; RESP 19; O2SAT 95
[2025-01-28 17:04] VITALS: BMI 28.5
[2025-01-28 17:14] VITALS: PULSE 114; RESP 18; O2SAT 98
[2025-01-28 17:53] LABS: Basophils # (Auto) 0.1 Thou/mm3 (0.0-0.2); Basophils % (Auto) 1 % (0-2.5); Eosinophils # (Auto) 0.1 Thou/mm3 (0.0-0.5); Eosinophils % (Auto) 1 % (0-10); Hematocrit 46.2 % (41.0-53.0); Hemoglobin 15.4 g/dL (13.5-16.0); Immature Granulocytes Auto 0.05 Thou/mm3 (0.00-0.00); Lymphocytes # (Auto) 4.3 Thou/mm3 (1.0-4.8); Lymphocytes % (Auto) 41 % (10-50); Mean Corpuscular HGB Conc 33.3 g/dl (31.0-37.0); Mean Corpuscular Hemoglobin 30.4 pg (25.0-35.0); Mean Corpuscular Volume 91 fL (80-100); Monocytes # (Auto) 1.1 Thou/mm3 (0.0-0.8); Monocytes % (Auto) 11 % (0-12); Neutrophils # (Auto) 4.7 Thou/mm3 (1.8-7.7); Neutrophils % (Auto) 45 % (37-80); Nucleated Red Blood Cell # 0.00 Thou/mm3 (0.00-0.00); Nucleated Red Blood Cell % 0 /100 WBC (0); Platelet Count 342 Thou/mm3 (140-440); RDW Standard Deviation 52.4 fL (35.1-43.9); Red Blood Count 5.06 Miln/mm3 (4.50-5.90); White Blood Count 10.4 Thou/mm3 (3.8-10.6)
[2025-01-28 17:59] LABS: INR 1.7 (0.9-1.3); Prothrombin Time 18.0 Seconds (9.0-12.2)
[2025-01-28 18:07] LABS: Alanine Aminotransferase 154 U/L (10-49); Albumin, Serum 3.6 gm/dL (3.5-5.0); Albumin/Globulin Ratio 1.2 (1.2-2.2); Alkaline Phosphatase 76 U/L (46-116); Anion Gap 13 (7-16); Aspartate Amino Transferase 150 U/L (0-34); BUN/Creatinine Ratio 15 Ratio (12-20); Bilirubin,Total 2.0 mg/dL (0.3-1.2); Blood Urea Nitrogen 19 mg/dL (9-23); Calcium 9.4 mg/dL (8.3-10.6); Calcium (Corrected) 9.7 mg/dL (8.5-10.1); Carbon Dioxide 22.9 mMol/L (20.0-31.0); Chloride 100 mMol/L (98-107); Creatinine (Component) 1.3 mg/dL (0.6-1.3); Estimated Creatinine Clearance 69.9 mL/min (>60); Globulin 2.9 gm/dL (2.3-3.5); Glucose 84 mg/dL (74-106); Lipase 25 U/L (12-53); Osmolality,Calculated 273 (275-295); Potassium 4.4 mMol/L (3.4-5.1); Sodium 136 mMol/L (136-145); Total Protein 6.5 gm/dL (5.7-8.2); eGFR > 60 See Note
--- NOTE | 2025-01-28 18:08 | PD.EDABDPN ---
ED Abdominal Pain RME/HPI General Chief Complaint: Abdominal Pain Stated complaint: ABD PAIN Time seen by provider: 01/28/25 17:07 Arrival date/time: 01/28/25 17:00 This is a 49-year-old male comes into the emergency room with complaints of abdominal pain. Patient states he is a chronic alcoholic. Patient just got discharged from the hospital couple days ago. Patient has a history of meth use liver cirrhosis. Patient initially came in for abdominal distention and at that time when he was last admitted was having black tarry stools. Patient had a CT abdomen pelvis that showed mild ascites. Last admission patient tested positive for meth. On last admission patient was found to have decompensated liver cirrhosis and SBP in which she was started on ceftriaxone 2 g IV, spironolactone, Lasix, midodrine blood pressure was on the lower side. He underwent EGD in which she was found to have esophageal varices grade 1. Patient was continued on octreotide for 3 days, Protonix. Has hospital course was complicated by increased troponin in which echocardiogram was done and showed ejection fraction of 15 to 20%. Consultation to the sterile products processor Dr. Parnell was sent he recommended to start the patient on GDMT. Patient was started on metoprolol, losartan, spironolactone. However because of his low blood pressure patient was started on midodrine. Patient will need to follow-up strictly with computer software engineer, sterile products processor, and with his PCP for further recommendations. Related Data Previous Rx's ?Medication ?Instructions ?Recorded budesonide-formoterol HFA 80 2 puff inhalation BID #10.2 grams 01/30/25 mcg-4.5 mcg/actuation aerosol inhaler carvedilol 3.125 mg tablet 3.125 mg PO BIDWM 1 month #60 tabs 01/30/25 dicyclomine 10 mg capsule 10 mg PO BID PRN abdominal pain 01/30/25 #30 caps prednisone 20 mg tablet See Taper PO BID 27 days #54 tabs 01/30/25 omeprazole 20 mg capsule,delayed 20 mg PO QDAY #30 caps 02/10/25 release Allergies Allergy/AdvReac Type Severity Reaction Status Date / Time No Known Allergies Allergy Verified 01/17/25 14:29 Review of Systems Review of Systems Systems Reviewed: All systems reviewed, normal except as documented Past Medical History Past Medical History NEUROLOGIC: Negative Neurological Disorders or Seizures CARDIAC: Positive Cardiac Disorders and Congestive Heart Failure RESPIRATORY: Positive Respiratory Disorders (ASTHMA) and Pulmonary Embolism; Negative Chronic Obstructive Pulmonary Disease (COPD) or Asthma GASTROINTESTINAL: Positive Cirrhosis; Negative Gastrointestinal Disorders GENITOURINARY: Negative Genitourinary Disorders or Renal Disease MUSCULOSKELETAL: Negative Musculoskeletal Disorders ENDOCRINE: Negative Endocrine Disorders, Diabetes Mellitus Type 1 or Diabetes Mellitus Type 2 HEMATOLOGIC: Negative Blood Disorders or Sickle Cell Disease PSYCHO/SOCIAL: Positive Recreational Drug Use, Depression and Anxiety OTHER HISTORY: Positive Blood Transfusions; Negative Blood Transfusion Reaction, Anesthesia Reactions or Cancer Family History FAMILY HISTORY: Positive Family Cardiac Disorders; Negative Family Respiratory Disorders or Family Gastrointestinal Problems Social History SMOKING STATUS: Former smoker SUBSTANCE USE: does not use ALCOHOL LAST INTAKE: Days (ago) ED Exam Narrative Physical exam: VITAL SIGNS: Reviewed. GENERAL APPEARANCE: Alert and interactive, follows commands, no acute distress, no asterixis noted, pt is anxious HEAD AND FACE: Non-traumatic. ENT: PERRL, conjuctiva pink and clear, eyelid no trauma, Mucous membrane moist. NECK: Supple, nontender, no nuchal rigidity. CHEST: No tenderness, no crepitus, no paradoxical movement, no retractions. LUNGS: Clear, well ventilated, symmetric, no rales, no wheezing, no rhonchi, no stridor, good breath sounds bilaterally. HEART: Regular rate, regular rhythm, no murmur, no gallops. ABDOMEN: Soft, distended diffuse tenderness throughout. NEUROLOGICAL: Gross motor function intact sensory function intact, Appropriate for age. MUSCULOSKELETAL: low back nontender, full range of motion. EXTREMITIES: Mild edema to bilateral feet. Distal neurovascular status intact bilateral foot SKIN: Color pink, dry Course Quality Measures none Orders Category Date Time Status COVID-19 Screening Questionnaire NOW Care 01/28/25 20:28 Completed COVID-19 Screening Questionnaire NOW Care 01/28/25 22:[address] Screening NOW Care 01/28/25 20:28 Completed Decision to Admit X1 Care 01/28/25 20:28 Completed Decision to Admit X1 Care 01/28/25 22:10 Completed EKG (ED ONLY) *Do not use* NOW Care 01/28/25 18:39 Completed IV [Insert IV] STAT Care 01/28/25 17:34 Completed Consult to Cardiology Stat Cons 01/28/25 20:[address] abdomen pelvis w con Stat Exams 01/28/25 20:27 Completed EKG (ED Only) Stat Exams 01/28/25 18:39 Draft Alcohol, Urine Stat Lab 01/28/25 19:18 Completed BNP [B-Type Natriuretic Peptide] Stat Lab 01/28/25 17:25 Completed CBC Stat Lab 01/28/25 17:25 Completed Comprehensive Metabolic Panel Stat Lab 01/28/25 17:25 Completed Drug Screen,Urine Stat Lab 01/28/25 18:26 Completed Lipase Stat Lab 01/28/25 17:25 Completed PT [Prothrombin Time with INR] Stat Lab 01/28/25 17:25 Completed Partial Thromboplastin Time Stat Lab 01/28/25 17:25 Completed Troponin I Stat Lab 01/28/25 17:25 Completed Troponin I Stat Lab 01/28/25 19:35 Completed Urinalysis, C/S if Indicated Stat Lab 01/28/25 18:26 Completed LORazepam [Ativan] Med 01/28/25 21:17 Discontinued 1 mg PO X1 ONE LORazepam [Ativan] Med 01/28/25 21:17 Discontinued 1 mg PO X1 ONE Sodium Chloride 0.9% 1000 ml [Ns] 1,000 ml Med 01/28/25 17:34 Discontinued IV 999 mls/hr cefTRIAXone [Rocephin] 1,000 mg Med 01/28/25 22:08 Discontinued SODIUM CHLORIDE 0.9% (Popper) [Ns 0.9% (P)] 50 ml IV QDAY cefTRIAXone [Rocephin] 1,000 mg Med 01/28/25 22:15 Discontinued SODIUM CHLORIDE 0.9% (Popper) [Ns 0.9% (P)] 50 ml IV X1 Vital Signs Vital signs: Vital Signs Pulse Rate 123 H 01/28/25 17:03 Respiratory Rate 19 01/28/25 17:03 Blood Pressure 111/84 01/28/25 17:03 Pulse Oximetry (%) 95 01/28/25 17:03 Oxygen Delivery Method Room Air 01/28/25 17:03 PROCEDURES: EKG Interpretation #1: Date of EK01/28/25 Time of EK:42 Rate: 104 Interpretation: Interpreted by me (Sinus tachycardia with left atrial enlargement. Flattened T waves in lead I and aVL. Patient has inversion of his T wave in 6.) EKG Impression: No ectopy, Normal QRS and Normal intervals Abdominal Pain MDM MDM Narrative MDM Narrative:: This is a 49-year-old male comes into the emergency room with complaints of abdominal pain. Patient states he is a chronic alcoholic. Patient just got discharged from the hospital couple days ago. Patient has a history of meth use liver cirrhosis. Patient initially came in for abdominal distention and at that time when he was last admitted was having black tarry stools. Patient had a CT abdomen pelvis that showed mild ascites. Last admission patient tested positive for meth. On last admission patient was found to have decompensated liver cirrhosis and SBP in which she was started on ceftriaxone 2 g IV, spironolactone, Lasix, midodrine blood pressure was on the lower side. He underwent EGD in which she was found to have esophageal varices grade 1. Patient was continued on octreotide for 3 days, Protonix. Has hospital course was complicated by increased troponin in which echocardiogram was done and showed ejection fraction of 15 to 20%. Consultation to the sterile products processor Dr. Parnell was sent he recommended to start the patient on GDMT. Patient was started on metoprolol, losartan, spironolactone. However because of his low blood pressure patient was started on midodrine. Patient will need to follow-up strictly with computer software engineer, sterile products processor, and with his PCP for further recommendations. Patient was initially tachycardic in the 120s on arrival. Tachycardia improved with 1 L fluid. Patient very anxious. CBC shows a white count of 10.4 hemoglobin of 15.4 and hematocrit of 46.2 platelet count of 342. PT 18 INR 1.7. BNP shows BUN of 19 creatinine to 1.3 T. bili is 2.0 AST is 150 and ALT is 154 of note AST and ALT are lower than a couple days ago. It seems to be trending down although T. bili is slightly a little bit more elevated. Patient's initial troponin was 7.7 and repeat is 7.51. BNP is greater than 30-80 lipase is 25 urine was unremarkable. Although urine was positive for opiates fentanyl methamphetamines benzos. Because of elevated troponin I did call Dr. Pelaez to consult on patient. He would like patient to be on heparin protocol. Patient does have some changes to his previous EKG some flattening T waves in lead I and aVL along with flipped T waves in V6. Patient does not complain of chest pain or shortness of breath but does complain of abdominal pain. I spoke to admitting team and they stated that they wanted a CT abdomen and pelvis. Patient did have some test done a couple days ago he is even had an MRCP in the past. No cholecystitis in the past. Abdominal pain could be secondary to ascites also can be secondary to withdrawal off fentanyl. Reports drug use but does not specify exactly what he use. Patient states he has not used drugs for 3 days. Patient states he is in a rehab program. ct abdomen and pelvis: Impression: [id number] heart failure pattern Cirrhosis Significant ascites Gallbladder wall is thickened which may relate to the patient's ascites No bowel obstruction Cystitis Xochitlon dictation: Although this document has been carefully reviewed, there may still be some phonetic and other typographical errors. These errors are purely grammatical due to imperfections in the software program and should not be construed in any way to compromise the substance of the patient's medical care during this visit. Patient data External records reviewed:: [facility] previous records Clinical information provided by:: patient Social determinants that could affect healthcare access:: none Patient has the following chronic illnesses:: see note How is presenting disease/condition affected by chronic disease/condition?: exacerbated by Evaluation data The following diagnostics were reviewed and interpreted by me:: lab results, radiology exam(s) and EKG tracing(s) Lab and/or radiology exams considered but not ordered:: none Interpretation Summary: see note Medications / Prescriptions Medications or Prescriptions considered but not ordered:: see note Medication administrations:: Medication Administration History Discontinued Medications Acetaminophen (Acetaminophen 325 Mg Tablet) 650 mg PO Q6H PRN PRN Reason: Fever >101.5 Stop: 02/27/25 22:16 Last Admin: 01/29/25 19:51 Dose: 650 mg Documented By: Admin: 01/29/25 01:03 Dose: 650 mg Documented By: HV Albuterol (Albuterol Rt 2.5 Mg/3 Ml Nebu) 2.5 mg INH X1 ONE Stop: 01/29/25 07:37 Last Admin: 01/29/25 08:58 Dose: Not Given Documented By: SC Non-Admin Reason: med dc Albuterol (Albuterol Rt 2.5 Mg/0.5 Ml Nebu) 2.5 mg INH X1 ONE Stop: 01/29/25 08:02 Last Admin: 01/29/25 08:22 Dose: 2.5 mg Documented By: EMMANUEL Albuterol (Albuterol Rt 2.5 Mg/0.5 Ml Nebu) 2.5 mg INH X1 ONE Stop: 01/30/25 15:27 Last Admin: 01/30/25 15:48 Dose: 2.5 mg Documented By: GRACIELA Aspirin (Aspirin 325 Mg Tablet) 325 mg PO X1 ONE Stop: 01/28/25 22:29 Last Admin: 01/28/25 22:45 Dose: 325 mg Documented By: GELY Aspirin (Aspirin Ec 81 Mg Tabec) 81 mg PO QDAY [facility] Stop: 02/28/25 08:59 Last Admin: 01/29/25 09:03 Dose: Not Given Documented By: SC Non-Admin Reason: hold per Dr. Pardo Atorvastatin Calcium (Atorvastatin Calcium 20 Mg Tablet) 80 mg PO HS [facility] Stop: 02/28/25 20:59 Last Admin: 01/29/25 19:52 Dose: 80 mg Documented By: TRAVIS Calcium Gluconate (Calcium Gluconate 10% Inj 1 Gm/10 Ml Vial) 1 gm IV X1 ONE Stop: 01/29/25 06:27 Last Admin: 01/29/25 06:53 Dose: 1 gm Documented By: TRAVIS Carvedilol (Carvedilol 3.125 Mg Tablet) 3.125 mg PO BIDWM [facility] Stop: 03/01/25 07:59 Last Admin: 01/30/25 08:29 Dose: 3.125 mg Documented By: CHARLIE Carvedilol (Carvedilol 3.125 Mg Tablet) 3.125 mg PO BIDWM [facility] Stop: 03/01/25 07:59 Clopidogrel Bisulfate (Clopidogrel Bisulfate 75 Mg Tablet) 75 mg PO X1 ONE Stop: 01/28/25 22:29 Last Admin: 01/28/25 22:45 Dose: 75 mg Documented By: GELY Clopidogrel Bisulfate (Clopidogrel Bisulfate 75 Mg Tablet) 75 mg PO QDAY [facility] Stop: 02/28/25 08:59 Last Admin: 01/29/25 09:01 Dose: Not Given Documented By: SC Non-Admin Reason: hold per Dr. Pardo Dextrose (Dextrose 50%-Water Inj 50 Ml Syringe) 50 ml IVP X1 ONE Stop: 01/29/25 06:26 Last Admin: 01/29/25 06:54 Dose: 50 ml Documented By: TRAVIS Dextrose (Dextrose 50%-Water Inj 50 Ml Syringe) 50 ml IVP X1 ONE Stop: 01/29/25 07:37 Last Admin: 01/29/25 08:58 Dose: Not Given Documented By: SC Non-Admin Reason: hold per Dr. Pardo Diazepam (Diazepam Inj 5 Mg/Ml Vial 2 Ml) 5 mg IVP X1 PRN PRN Reason: Breakthrough Agitation Dicyclomine HCl (Dicyclomine 10 Mg Capsule) 10 mg PO QID PRN PRN Reason: ABDOMINAL CRAMPING Stop: 03/01/25 09:23 Furosemide (Furosemide Inj 10 Mg/Ml 4ml Vial) 80 mg IVP X1 ONE Stop: 01/29/25 06:27 Last Admin: 01/29/25 08:58 Dose: Not Given Documented By: SC Non-Admin Reason: med dc Furosemide (Furosemide Inj 10 Mg/Ml 4ml Vial) 80 mg IVP X1 ONE Stop: 01/29/25 06:27 Last Admin: 01/29/25 08:59 Dose: Not Given Documented By: SC Non-Admin Reason: med dc Furosemide (Furosemide Inj 10 Mg/Ml 4ml Vial) 40 mg IVP X1 ONE Stop: 01/29/25 10:01 Last Admin: 01/29/25 11:28 Dose: 40 mg Documented By: SC Furosemide (Furosemide Inj 10 Mg/Ml 4ml Vial) 40 mg IVP X1 ONE Stop: 01/30/25 15:27 Last Admin: 01/30/25 16:01 Dose: Not Given Documented By: SC Non-Admin Reason: Patient Refused Comments: notified Heparin Sodium (Porcine) (Heparin Sod Inj 5000 Unit/Ml Vial) 4,000 unit IV X1 ONE; Protocol Stop: 01/28/25 22:22 Last Admin: 01/28/25 23:01 Dose: 4,000 unit Documented By: GELY Co-signed By: AMBER Sodium Chloride (Ns) 1,000 mls @ 999 mls/hr IV .Q1H1M ONE Stop: 01/28/25 18:34 Last Infusion: 01/28/25 20:30 Dose: Infused Documented By: Admin: 01/28/25 18:23 Dose: 999 mls/hr Documented By: RADHA Ceftriaxone Sodium 1,000 mg/ (Sodium Chloride) 50 mls @ 100 mls/hr IV QDAY WILL Stop: 02/04/25 22:07 Ceftriaxone Sodium 1,000 mg/ (Sodium Chloride) 50 mls @ 100 mls/hr IV X1 ONE Stop: 01/28/25 22:44 Last Infusion: 01/29/25 00:17 Dose: Infused Documented By: Admin: 01/28/25 22:27 Dose: 100 mls/hr Documented By: GELY Ceftriaxone Sodium/Dextrose (Rocephin/D5w 1gm Iv Premix) 1 gm in 50 mls @ 100 mls/hr IV HS WILL Stop: 02/05/25 20:59 Heparin Sodium/Dextrose (Heparin In D5w Ivpb) 25,000 unit in 250 mls @ 9.906 mls/hr IV .Q24H WILL; Protocol Stop: 02/11/25 22:29 Last Titration: 01/29/25 07:53 Dose: 9 units/kg/hr, 7.43 mls/hr Documented By: CHARLIE Co-signed By: JOSE ARMANDO Titration: 01/29/25 06:47 Dose: 0 units/kg/hr, 0 mls/hr Documented By: TRAVIS Co-signed By: CHARLIE Admin: 01/28/25 23:02 Dose: 12 units/kg/hr, 9.906 mls/hr Documented By: GELY Co-signed By: AMBER Albumin Human (Albuminar-25 Ivpb) 25 gm in 100 mls @ 100 mls/hr IV X1 ONE Stop: 01/29/25 07:26 Last Admin: 01/29/25 06:55 Dose: 100 mls/hr Documented By: TRAVIS Magnesium Sulfate (Magnesium Sulfate Ivpb) 4 gm in 50 mls @ 12.5 mls/hr IV X1 ONE Stop: 01/29/25 11:37 Last Admin: 01/29/25 09:12 Dose: 12.5 mls/hr Documented By: SC Ceftriaxone Sodium/Dextrose (Rocephin/D5w 2gm) 2 gm in 50 mls @ 100 mls/hr IV HS WILL Stop: 02/05/25 20:59 Last Admin: 01/29/25 19:53 Dose: 100 mls/hr Documented By: TRAVIS Albumin Human (Albuminar-25 Ivpb) 25 gm in 100 mls @ 100 mls/hr IV QDAY WILL Stop: 02/01/25 08:59 Last Admin: 01/30/25 08:29 Dose: 100 mls/hr Documented By: SC Infusion: 01/29/25 12:17 Dose: Infused Documented By: SC Admin: 01/29/25 11:17 Dose: 100 mls/hr Documented By: SC Albumin Human (Albuminar-25 Ivpb) 12.5 gm in 50 mls @ 50 mls/hr IV X1 ONE Stop: 01/29/25 08:48 Last Admin: 01/29/25 12:56 Dose: Not Given Documented By: SC Non-Admin Reason: per Dr. Pardo hold med Insulin Human Regular (Insulin Hum Regular 1 Unit/0.01 Ml (Per Unit)) 5 unit SC X1 ONE Stop: 01/29/25 06:30 Last Admin: 01/29/25 06:53 Dose: 5 unit Documented By: Co-signed By: SC Insulin Human Regular (Insulin Hum Regular 1 Unit/0.01 Ml (Per Unit)) 5 unit IV X1 ONE Stop: 01/29/25 07:37 Last Admin: 01/29/25 09:05 Dose: Not Given Documented By: SC Non-Admin Reason: hold per Dr. Pardo Lorazepam (Lorazepam 0.5 Mg Tablet) 1 mg PO X1 ONE Stop: 01/28/25 21:18 Lorazepam (Lorazepam 0.5 Mg Tablet) 1 mg PO X1 ONE Stop: 01/28/25 21:18 Last Admin: 01/28/25 21:41 Dose: 1 mg Documented By: [email or web address] Lorazepam (Lorazepam 0.5 Mg Tablet) 0.5 mg PO Q4HR PRN PRN Reason: CIWA Score 2-6 Stop: 02/02/25 22:22 Lorazepam (Lorazepam 0.5 Mg Tablet) 1 mg PO Q4HR PRN PRN Reason: CIWA SCORE 7-11 Stop: 02/02/25 22:22 Lorazepam (Lorazepam 0.5 Mg Tablet) 2 mg PO Q4HR PRN PRN Reason: CIWA SCORE 12-15 Stop: 02/02/25 22:22 Meclizine HCl (Meclizine Hcl 25 Mg Tablet) 25 mg PO TID PRN PRN Reason: NAUSEA Stop: 02/27/25 22:20 Last Admin: 01/29/25 19:52 Dose: 25 mg Documented By: Admin: 01/29/25 01:03 Dose: 25 mg Documented By: TRAVIS Methylprednisolone Sodium Succinate (Methylprednisolone Sod Succ 40 Mg/Ml Vial) 40 mg IVP QDAY WILL Stop: 02/06/25 08:59 Last Admin: 01/30/25 08:28 Dose: 40 mg Documented By: SC Metoprolol Tartrate (Metoprolol Tartrate 25 Mg Tablet) 25 mg PO BID WILL Stop: 02/27/25 22:44 Last Admin: 01/28/25 22:45 Dose: 25 mg Documented By: GELY Metoprolol Tartrate (Metoprolol Tartrate 25 Mg Tablet) 12.5 mg PO BID WILL Stop: 02/28/25 08:59 Last Admin: 01/29/25 09:12 Dose: 12.5 mg Documented By: SC Midodrine (Midodrine 5 Mg Tablet) 10 mg PO TID WILL Stop: 02/28/25 06:29 Last Admin: 01/30/25 16:01 Dose: Not Given Documented By: SC Non-Admin Reason: Patient Refused Admin: 01/30/25 05:24 Dose: Not Given Documented By: HV Non-Admin Reason: Vital Signs Admin: 01/29/25 21:46 Dose: 10 mg Documented By: Admin: 01/29/25 14:15 Dose: 10 mg Documented By: SC Admin: 01/29/25 06:51 Dose: 10 mg Documented By: TRAVIS Pantoprazole Sodium (Pantoprazole Inj 40 Mg Vial) 40 mg IVP QDAY WILL Stop: 02/28/25 08:59 Last Admin: 01/29/25 09:11 Dose: 40 mg Documented By: SC Pantoprazole Sodium (Pantoprazole Inj 40 Mg Vial) 40 mg IVP BID WILL Stop: 02/28/25 20:59 Last Admin: 01/30/25 08:29 Dose: 40 mg Documented By: SC Admin: 01/29/25 19:53 Dose: 40 mg Documented By: TRAVIS Simethicone (Simethicone 80 Mg Chew) 80 mg PO QID PRN PRN Reason: GAS Stop: 02/28/25 17:21 Last Admin: 01/29/25 19:52 Dose: 80 mg Documented By: TRAVIS Sodium Chloride (Sodium Chloride Rt Mervat 0.9% 3 Ml Nebu) 3 ml INH PRN PRN PRN Reason: SOLN Stop: 02/28/25 08:00 Last Admin: 01/29/25 08:22 Dose: 3 ml Documented By: EMMANUEL Sodium Polystyrene Sulfonate (Sod Polystyrene Sulfon Susp 15 Gm/60 Ml Btl) 30 gm PO X1 ONE Stop: 01/29/25 06:27 Last Admin: 01/29/25 06:54 Dose: 30 gm Documented By: TRAVIS see mar Consultations Consultation(s) initiated? (list below): Yes Consultation #1 (Physician, Specialty, Details): Dr. Pelaez he states he will consult on patient Diagnosis Differential diagnosis abdominal pain: other (decompensated heart failure, mi, cirrhosis ) Most likely diagnosis given after review of the tests above:: decompensated heart failure Admission Indicated Admission indicated?: indicated Admission Request Was there a request for admission?: Yes Admission Attestation Admission request attestation: Discussed case with [] from Hospitalist service regarding admission. Discussed patients ED course, exam findings, labs, and radiology results. The Hospitalist [agrees,declines] to accept the patient for admission. Disposition Plan Disposition Plan: Admit Discharge Plan Plan Patient Disposition: Admit Acute Care w/in Hospital Problem List Clinical Impression: Elevated troponin, Methamphetamine use, Acute decompensated heart failure PA/BIODIESEL PROCESSING TECHNICIAN Supervising Physician PA/BIODIESEL PROCESSING TECHNICIAN Supervising Physician: joseph
[2025-01-28] MEDS: SODIUM CHLORIDE 0.9% 1000 ML 1,000 ML 999 ML IV (18:23)
[2025-01-28 18:37] LABS: Troponin I 7.763 ng/mL (0.0-0.045)
--- NOTE | 2025-01-28 18:39 | EKG_ITS ---
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: : 1975 Requested By: Tracey Gonzalez Order Number: [id number] Reading MD: Tracey Gonzalez Measurements Intervals [place] Rate: 104 P: 51 [place]: 192 QRS: -53 QRSD: 100 T: 60 QT: 431 QTc: 568 Interpretive Statements SINUS TACHYCARDIA LEFT ATRIAL ENLARGEMENT [-0.15mV P-WAVE IN V1/V2] PATTERN CONSISTENT WITH PULMONARY DISEASE LEFT ANTERIOR FASCICULAR BLOCK [QRS AXIS <= -45, QR IN I, RS IN II] MODERATE T-WAVE ABNORMALITY, CONSIDER LATERAL ISCHEMIA [-0.1+ mV T-WAVE IN I/aVL/V5/V6] Compared to ECG 01/21/2025 14:43:43 Left anterior fascicular block now present Sinus rhythm no longer present Left-axis deviation no longer present T-wave abnormality still present Possible ischemia still present /store/S0/[id number]
[2025-01-28 18:43] LABS: Collection Type, Urine Voided
[2025-01-28 18:47] LABS: B-Type Natriuretic Peptide > 3280 pg/mL (0-100)
[2025-01-28 18:48] LABS: Bilirubin,Urine Negative (Negative); Blood,Urine Negative (Negative); Clarity,Urine Turbid (Clear/Hazy); Color,Urine Yellow (Lt Yel-Yel); Culture Indicated,Urine Not Indicated; Glucose, Urine Negative (Negative); Hyaline Casts,Urine 2 /hpf (0-1); Ketones,Urine Negative (Negative); Leukocyte Esterase,Urine Negative (Negative); Nitrite,Urine Negative (Negative); PH,Urine 6.0 (5.0-7.0); Protein,Urine Trace (Neg - Trace); RBC,Urine 3 /hpf (0-3); Specific Gravity,Urine 1.014 (1.001-1.035); Squamous Epithelial Cell,Urine < 1 /hpf (0-5); Urobilinogen,Urine 4.0 mg/dL (0.0-1.0); WBC,Urine 1 /hpf (0-5)
[2025-01-28 20:21] LABS: Amphetamine/Methamp Scrn,U Positive (Negative); Barbiturate Screen,Urine Negative (Negative); Benzodiazepines Screen,Urine Positive (Negative); Benzoylecgonine Screen, Ur Negative (Negative); Fentanyl Screen,Urine Positive (Negative); Opiate Screen,Urine Positive (Negative); THC Screen,Urine Negative (Negative)
[2025-01-28 20:22] LABS: Troponin I 7.511 ng/mL (0.0-0.045)
--- NOTE | 2025-01-28 20:27 | XR_ITS ---
Examination: CT abdomen with intravenous contrast CT pelvis with intravenous contrast 2-D coronal reconstructions 2-D sagittal reconstructions Date and time of exam:January 29, 20122024, 1101 hrs., Comparison January 17, 2025 Indications:: Abdominal pain today, diagnosis cirrhosis. CTDI: vol (mGy) 5.57. DLP: (mGycm) 318. Technique: Multiple axial sections of the abdomen and pelvis have been obtained. 64 slice high-resolution scanner used. 3 mm axial sections have been obtained, post intravenous injection 60 cc [id number] 2-D sagittal, coronal reconstructions obtained. Low dose protocols were performed. One or more of the following dose reduction techniques were used; automated exposure control, adjustment of the mA and/or KV according to patient size, use of iterative reconstruction technique. Findings: Moderate enlargement cardiac contour with prominent vascular congestion and small pleural effusions Cirrhosis, with significant ascites Gallbladder wall is thickened which may relate to the patient's ascites No pancreatic mass. No renal calculi or ureteral calculi Aorta normal size Partial visualization normal appendix No bowel obstruction Urinary bladder wall thickening up to 6 mm No prostatomegaly Fluid containing inguinal hernias Impression: [id number] heart failure pattern Cirrhosis Significant ascites Gallbladder wall is thickened which may relate to the patient's ascites No bowel obstruction Cystitis
[2025-01-28 20:33] VITALS: BP 110/81; PULSE 102; RESP 19; TEMP 36.3; O2SAT 100
[2025-01-28 21:07] LABS: Partial Thromboplastin Time 29.3 Seconds (22.0-36.0)
[2025-01-28 21:44] VITALS: BP 103/87; PULSE 104; RESP 19; TEMP 37.2; O2SAT 100
[2025-01-28 21:45] LABS: Alcohol, Urine Negative (Negative)
[2025-01-28] MEDS: cefTRIAXone 1,000 MG in SODIUM CHLORIDE 0.9% (Popper) 50 ML 100 MG IV (22:27)
--- NOTE | 2025-01-28 22:32 | PD.RESHP ---
Documentation for date of: 01/28/25 [facility] History of Present Illness Chief complaint: epigastric pain History of present illness: Mr. Blankenship is a 49-year-old male past medical history significant for decompensated liver cirrhosis, HFrEF (EF 15-25%0), alcohol use dependence, methamphetamine use present to ED 01/28/2025 with acute on chronic epigastric pain. Patient reports epigastric abdominal pain has been occurring for the last 20 days, the pain in intermittent and nothings makes it better or worse. He stated that the pain worsen after his last hospitalization. Associated with nausea, fatigue and occasional hematochezia. Additionally patient also noted pressure-like chest pain for the past 2 days associated with shortness of breath, and headache but denies orthopnea and paroxysmal nocturnal dyspnea. He states that the chest pain and headache improves with alcohol intake. Patient reports attempted to attend Alcoholics Anonymous (AA) sections but states he has been experiencing multiple relapse. He denies vision changes, chest palpitation, hematemesis, diarrhea, any recent sick contacts. He endorses burning sensation during urination and decreased urinary frequency. Of note Patient was newly discharge from the hospital couple days ago and was found to be meth positive and having decompensated liver cirrhosis and SBP. ED Course: -Initial vitals were BP 110/81, pulse 123, temp 97.4, O2 sat 100% on room air -Labs significant for PT 18, INR 1.7, T. bili 2, AST 150, ALT 154, Trops 7.763, BNP 3280, urine positive opiates, fentanyl, amphetamine, benzodiazepine and negative alcohol -Imaging included EKG showed sinus tachycardia, V5-V6 ST changes from previous EKG,QTc 568. Abd/pelvis CT shows cirrhosis with significant ascites, cirrhosis, gallbladder wall thickening, cystitis -In the ED, patient was given NS fluid, lorazepam 1 mg X1, ceftriaxone, aspirin 325 mg, Plavix 5 mg, metoprolol 25 mg, started heparin drip and meclizine for nausea. -Patient was admitted for elevated troponins workup and management Review of Systems Review of systems otherwise negative except what is mentioned above. Past Medical History: As mentioned above Family History: Noncontributory Surgical History: Social History: Denies history of smoking. 12 can of [employer] beers/day. Methamphetamine use Current Medications: (Source: ) Allergies: No known drug allergies Exam Vital Signs Temp Pulse Resp BP Pulse Ox O2 Del Method 98.9 F 104 H 19 103/87 H 100 Room Air 01/28/25 21:44 01/28/25 21:44 01/28/25 21:44 01/28/25 21:44 01/28/25 21:44 01/28/25 20:33 Narrative Exam General: Fatigue, Alert, no acute distress. Conversational and non-toxic appearing. Skin: Warm, dry, intact. No rash or ecchymoses. Head: Normocephalic, atraumatic. Eye: Normal conjunctiva, PERRL. Throat: Oral mucosa moist. No obvious lesions in oropharynx. Cardiovascular: Regular rate and rhythm, no murmur, +S1/S2. Respiratory: Lungs are clear to auscultation, respirations unlabored, no crackles, no wheezing. Gastrointestinal: Soft, nontender, distended. No guarding or rebound tenderness. 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 Neuro: Alert and oriented x3.No focal deficits observed. Conversant, moving all extremities. No overt cerebellar signs/incoordination. Psychiatric: Cooperative, appropriate affect Results: Labs 01/29/25 12:53 01/29/25 10:13 Labs: Short CBC 01/28/25 Range/Units 17:25 WBC 10.4 (3.8-10.6) Thou/mm3 Hgb 15.4 (13.5-16.0) g/dL Hct 46.2 (41.0-53.0) % Plt Count 342 (140-440) Thou/mm3 BMP 01/28/25 17:25 Sodium 136 Potassium 4.4 Chloride 100 Carbon Dioxide 22.9 BUN 19 Creatinine 1.3 Glucose 84 Calcium 9.4 Cardiac Enzymes 01/28/25 01/28/25 Range/Units 17:25 19:35 Troponin I 7.763 H* 7.511 H* D (0.0-0.045) ng/mL Liver Function 01/28/25 Range/Units 17:25 Total Bilirubin 2.0 H (0.3-1.2) mg/dL AST 150 H (0-34) U/L ALT 154 H (10-49) U/L Alkaline Phosphatase 76 (46-116) U/L Albumin 3.6 (3.5-5.0) gm/dL Urine 01/28/25 Range/Units 18:26 Urine Color Yellow (Lt Yel-Yel) Urine Clarity Turbid A (Clear/Hazy) Urine pH 6.0 (5.0-7.0) Ur Specific [place] 1.014 (1.001-1.035) Urine Protein Trace (Neg - Trace) Urine Glucose (UA) Negative (Negative) Quality Measures Quality Measures VTE prophylaxis Medications Home Medications and Allergies Allergies Allergy/AdvReac Type Severity Reaction Status Date / Time No Known Allergies Allergy Verified 01/17/25 14:29 Visit Medications Acetaminophen (Acetaminophen 325 Mg Tablet) 650 mg PO Q6H PRN PRN Reason: Fever >101.5 Stop: 02/27/25 22:16 Aspirin (Aspirin 325 Mg Tablet) 325 mg PO X1 ONE Stop: 01/28/25 22:29 Aspirin (Aspirin Ec 81 Mg Tabec) 81 mg PO QDAY WILL Stop: 02/28/25 08:59 Atorvastatin Calcium (Atorvastatin Calcium 20 Mg Tablet) 80 mg PO HS WILL Stop: 02/28/25 20:59 Clopidogrel Bisulfate (Clopidogrel Bisulfate 75 Mg Tablet) 75 mg PO X1 ONE Stop: 01/28/25 22:29 Diazepam (Diazepam Inj 5 Mg/Ml Vial 2 Ml) 5 mg IVP X1 PRN PRN Reason: Breakthrough Agitation Heparin Sodium (Porcine) (Heparin Sod Inj 5000 Unit/Ml Vial) 4,000 unit IV X1 ONE; Protocol Stop: 01/28/25 22:22 Ceftriaxone Sodium 1,000 mg/ (Sodium Chloride) 50 mls @ 100 mls/hr IV QDAY [facility] Stop: 02/04/25 22:07 Ceftriaxone Sodium 1,000 mg/ (Sodium Chloride) 50 mls @ 100 mls/hr IV X1 ONE Stop: 01/28/25 22:44 Last Admin: 01/28/25 22:27 Dose: 100 mls/hr Ceftriaxone Sodium/Dextrose (Rocephin/D5w 1gm Iv Premix) 50 mls @ 100 mls/hr IV QDAY WILL Stop: 02/05/25 08:59 Heparin Sodium/Dextrose (Heparin In D5w Ivpb) 25,000 unit in 250 mls @ 9.906 mls/hr IV .Q24H WILL; Protocol Stop: 02/11/25 22:29 Lorazepam (Lorazepam 0.5 Mg Tablet) 0.5 mg PO Q4HR PRN PRN Reason: CIWA Score 2-6 Stop: 02/02/25 22:22 Lorazepam (Lorazepam 0.5 Mg Tablet) 1 mg PO Q4HR PRN PRN Reason: CIWA SCORE 7-11 Stop: 02/02/25 22:22 Lorazepam (Lorazepam 0.5 Mg Tablet) 2 mg PO Q4HR PRN PRN Reason: CIWA SCORE 12-15 Stop: 02/02/25 22:22 Meclizine HCl (Meclizine Hcl 25 Mg Tablet) 25 mg PO TID PRN PRN Reason: NAUSEA Stop: 02/27/25 22:20 Discontinued Medications Sodium Chloride (Ns) 1,000 mls @ 999 mls/hr IV .Q1H1M ONE Stop: 01/28/25 18:34 Last Infusion: 01/28/25 20:30 Dose: Infused Lorazepam (Lorazepam 0.5 Mg Tablet) 1 mg PO X1 ONE Stop: 01/28/25 21:18 Lorazepam (Lorazepam 0.5 Mg Tablet) 1 mg PO X1 ONE Stop: 01/28/25 21:18 Last Admin: 01/28/25 21:41 Dose: 1 mg Assessment & Plan Plan Mr. Blankenship is a 49-year-old male past medical history significant for decompensated liver cirrhosis, HFrEF (EF 15-25%0), alcohol use dependence, methamphetamine use present to ED 01/28/2025 with acute on chronic epigastric pain. Admitted for abdominal pain and high troponin workup and management. #Elevated troponin 2/2 #NSTEMI I vs II #Methamphetamine use use On admission: Troponin 7.763 downtrending to 7.511. EKGinus tachycardia, V5-V6 ST changes from previous EKG with QTc 433. [place] troponin likely secondary to type II NSTEMI attributed to demand ischemia in the context of recent methamphetamine use and chronic alcohol intake. Methamphetamine is a known vasoconstrictor which can lead to increased myocardial oxygen demand. Chronic alcohol may also contribute to cardiomyopathy further exacerbating myocardial stress and causing elevated troponin ? Started HEPARIN ggt ACS, PLAVIX 75 daily, and ASA daily -Trend troponins -Cardiac echo -Cardiology will follow patient, appreciate recommendations -Lipid panel -Hemoglobin A1c -TSH level -Follow-up urine tox screen - Maintain potassium >4.0 and magnesium >2.0 - Counseled patient on substance use cessation #Decompensated liver Cirrhosis #Transaminitis #Rule out SBP #Abdominal pain Patient reported acute on chronic epigastric pain that significantly worsened over the past 20 days. On stated admission patient abdomen is distended and nontender to palpation. CT abdominal/pelvis showed cirrhosis and significant ascites. T. bili 2, AST 150, ALT 154. Lipase normal. Rule out spontaneous bacterial peritonitis. - Start SBP prophylaxis, ceftriaxone 1g IV ( 01/28/25)- - US paracentesis with fluid analysis and culture - Meclizine for nausea - Monitor for worsening renal function, fever, hypotension #HFrEF (15-25%) #Grade 2 diastolic dysfunction Previous echo 01/18/25 showed severe systolic dysfunction with severe global hypokinesis. Grade II diastolic dysfunction. Estimated EF 15-20%. Estimated RVSP, 46 mmHg. RAP 5. Per previous admission by Dr. Parnell was consulted and patient was started on GDMT metoprolol, losartan, spironolactone. On admission BNP >3280. Patient is not active heart failure exacerbation. Having resume home medication Lasix due to low blood pressure - Fluid restriction 1500ml - Strict ins and outs - Follow-up with cardiology recommendation - Aspirin 81 mg - Continue home metoprolol 12.5 mg p.o. - Plan to resume Lasix if blood pressure tolerates, no signs of CHF exacerbation # Alcohol use dependence Patient have a history of chronic alcohol use. Reported last alcohol intake was about 3 days ago. CIWA - Started the CIWA protocol - Aspiration precaution # Hematochezia # Upper vs Lower GI bleed Patient has a history of GIB; EGD showed grade 1 esophageal varices, nonerosive gastritis characterized by erythematous duodenopathy. No concern for active bleeding as hemoglobin is 15.4, hematocrit 46.2 patient reporting acute on chronic hematochezia with no hematemesis and melena. - pending FBOT #Cystitis CT abdominal showed presence of cystitis, patient also endorses significant dysuria and decreased urinary frequency. UA was negative - continue monitor Hospital management: Lines: peripheral IV Diet: NPO Bowel: NA DVT prophylaxis: heparin Disposition: tele for high troponin and abdominal pain evaluation and management CODE STATUS: Full code Patient seen and assessed under supervision of attending physician and discuss with senior resident Dr. Madrigal PGY-2 Zayra Arana MD PGY-1, Internal Medicine Attending Provider Attestation/Addendum After examination of the patient and review of the clinical data I feel that this patient needs admission to the hospital for further treatment/evaluation. I Rambo Barahona MD, attest that I was physically present for mckeon portions of evaluation, and examined patient, labs and imagings and plan of care were discussed with IM residents team, and I agree with the findings and plans documented above.
[2025-01-28 22:45] VITALS: BP 117/86; PULSE 105; PULSE 106; RESP 18; TEMP 36.3; O2SAT 98
[2025-01-28] MEDS: METOPROLOL TARTRATE 25 MG TABLET PO (22:45)
[2025-01-28] MEDS: CLOPIDOGREL BISULFATE 75 MG TABLET PO (22:45)
[2025-01-28 22:49] VITALS: O2SAT 95
[2025-01-28] MEDS: HEPARIN SOD INJ 5000 UNIT/ML VIAL 4000 UNIT IV (23:01)
[2025-01-28] MEDS: Heparin/D5w 25K 250 ML Ivpb 25,000 UNIT/250 ML BAG 9.906 UNIT IV (23:02)
--- NOTE | 2025-01-28 23:41 | PC.NURSE ---
Attempted to call report no answer
[2025-01-29] VITALS (17 sets, daily range): BP systolic 80–116; BP diastolic 62–90; PULSE 74–107; RESP 14–100; TEMP 36–36.8; O2SAT 92–99; BMI 22.8; BMI 22.6
[2025-01-29] MEDS: ACETAMINOPHEN 325 MG TABLET 650 MG PO ×2 (01:03→19:51)
[2025-01-29] MEDS: MECLIZINE HCL 25 MG TABLET PO ×2 (01:03→19:52)
[2025-01-29 05:31] LABS: Basophils # (Auto) 0.1 Thou/mm3 (0.0-0.2); Basophils % (Auto) 1 % (0-2.5); Eosinophils # (Auto) 0.0 Thou/mm3 (0.0-0.5); Eosinophils % (Auto) 0 % (0-10); Hematocrit 48.7 % (41.0-53.0); Hemoglobin 15.7 g/dL (13.5-16.0); Immature Granulocytes Auto 0.08 Thou/mm3 (0.00-0.00); Lymphocytes # (Auto) 3.2 Thou/mm3 (1.0-4.8); Lymphocytes % (Auto) 30 % (10-50); Mean Corpuscular HGB Conc 32.2 g/dl (31.0-37.0); Mean Corpuscular Hemoglobin 30.1 pg (25.0-35.0); Mean Corpuscular Volume 94 fL (80-100); Monocytes # (Auto) 1.3 Thou/mm3 (0.0-0.8); Monocytes % (Auto) 12 % (0-12); Neutrophils # (Auto) 6.2 Thou/mm3 (1.8-7.7); Neutrophils % (Auto) 57 % (37-80); Nucleated Red Blood Cell # 0.00 Thou/mm3 (0.00-0.00); Nucleated Red Blood Cell % 0 /100 WBC (0); Platelet Count 340 Thou/mm3 (140-440); RDW Standard Deviation 53.9 fL (35.1-43.9); Red Blood Count 5.21 Miln/mm3 (4.50-5.90); White Blood Count 10.9 Thou/mm3 (3.8-10.6)
[2025-01-29 05:57] LABS: Glucose Estimated Average 117 mg/dL (80-131); Hemoglobin A1C 5.7 % Hgb (4.8-6.0)
[2025-01-29 06:14] LABS: Alanine Aminotransferase 272 U/L (10-49); Albumin, Serum 3.3 gm/dL (3.5-5.0); Albumin/Globulin Ratio 1.1 (1.2-2.2); Alkaline Phosphatase 88 U/L (46-116); Anion Gap 15 (7-16); Aspartate Amino Transferase 418 U/L (0-34); BUN/Creatinine Ratio 11 Ratio (12-20); Bilirubin,Total 2.2 mg/dL (0.3-1.2); Blood Urea Nitrogen 17 mg/dL (9-23); Calcium 9.4 mg/dL (8.3-10.6); Calcium (Corrected) 10.0 mg/dL (8.5-10.1); Carbon Dioxide 21.1 mMol/L (20.0-31.0); Cardiac Risk Estimate 5.9 RATIO (4.0-6.7); Chloride 99 mMol/L (98-107); Cholesterol 107 mg/dL (132-200); Creatinine (Component) 1.5 mg/dL (0.6-1.3); Estimated Creatinine Clearance 53.2 mL/min (>60); Globulin 2.9 gm/dL (2.3-3.5); Glucose 59 mg/dL (74-106); HDL Cholesterol 18 mg/dL (40-60); LDL Cholesterol,Calculated 78 mg/dL (0-130); Magnesium 1.7 mg/dL (1.6-2.6); Osmolality,Calculated 269 (275-295); Phosphorous 4.3 mg/dL (2.4-5.1); Sodium 135 mMol/L (136-145); Total Protein 6.2 gm/dL (5.7-8.2); Triglycerides 55 mg/dL (30-150); eGFR 56 See Note
[2025-01-29 06:18] LABS: Potassium 6.3 mMol/L (3.4-5.1)
--- NOTE | 2025-01-29 06:26 | PC.NURSE ---
MD Baca notified of critical lab of potassium 6.3 at 06:23, no new orders at this time, care continued.
--- NOTE | 2025-01-29 06:29 | EKG_ITS ---
[facility] Test Date: 2025-01-29 Pat Name: KALPANA FAIRCHILD [facility] Gender: Male Audio Director: KWASI : 1975 Requested By: Rambo Moore Order Number: [id number] Reading MD: Rambo Moore Measurements Intervals [place] Rate: 92 P: 52 NC: 208 QRS: -52 QRSD: 97 T: 91 QT: 408 QTc: 505 Interpretive Statements SINUS RHYTHM LEFT ATRIAL ENLARGEMENT LEFT ANTERIOR FASCICULAR BLOCK POSSIBLE ANTERIOR MYOCARDIAL INFARCTION , OF INDETERMINATE AGE Compared to ECG 01/28/2025 18:42:39 Myocardial infarct finding now present Sinus tachycardia no longer present T-wave abnormality no longer present Possible ischemia no longer present /store/S0/[id number]/ecg/[id number].pdf
[2025-01-29 06:45] LABS: Partial Thromboplastin Time 123.0 Seconds (22.0-36.0)
[2025-01-29] MEDS: MIDODRINE 5 MG TABLET 10 MG PO ×3 (06:51→21:46)
[2025-01-29] MEDS: CALCIUM GLUCONATE 10% INJ 1 GM/10 ML VIAL IV (06:53)
[2025-01-29] MEDS: INSULIN HUM REGULAR 1 UNIT/0.01 ML (PER UNIT) 5 UNIT SC (06:53)
[2025-01-29] MEDS: DEXTROSE 50%-WATER INJ 50 ML SYRINGE IVP (06:54)
[2025-01-29] MEDS: SOD POLYSTYRENE SULFON SUSP 15 GM/60 ML BTL 30 GM PO (06:54)
[2025-01-29] MEDS: ALBUMIN HUMAN 25% IVPB 25 GM/100 ML BTL IV ×2 (06:55→11:17)
--- NOTE | 2025-01-29 07:26 | PD.IMCONS ---
HPI Data of Consult Requesting Physician: Rambo Barahona MD Primary Care Provider: Justin Millan MD Consult Narrative History of present illness: This is a 49-year-old male past medical history significant for decompensated liver cirrhosis, HFrEF (EF 15-25%0), alcohol use dependence, methamphetamine use Patient seen in the emergency room with a complaint of epigastric pain minimal pain going for about 2 weeks complaint of nonspecific chest pain headache body pain Cardiology consultation requested for congestive heart failure Patient underwent a recent echocardiographic exam ejection fraction 15 to 20% dilated cardiomyopathy Troponin was elevated at 7.5 EKG does not show any acute ST-T wave changes axis deviation noted cc:: cc: Rambo Barahona MD Meds Home Medications and Allergies Allergies Allergy/AdvReac Type Severity Reaction Status Date / Time No Known Allergies Allergy Verified 01/17/25 14:29 Exam Vital Signs Temp Pulse Resp BP Pulse Ox O2 Del Method 96.8 F 74 27 H 96/64 92 L Room Air 01/29/25 04:00 01/29/25 06:51 01/29/25 04:00 01/29/25 06:51 01/29/25 04:00 01/29/25 04:00 Routine HEENT Exam Head: Present normocephalic and atraumatic Eye: Present EOMI and PERRL ENT: Present mucous membranes moist Routine Neck Exam Neck: Present supple and trachea midline Routine Respiratory Exam Respiratory: Present chest non-tender, lungs clear, normal breath sounds and no resp distress Routine Cardiovascular Exam Cardiovascular: Present RRR Routine Abdominal Exam Abdominal: Present soft and normoactive bowel sounds Routine Extremities Exam Extremities: Present full ROM Routine Skin Exam Skin: Present intact, dry and warm Routine Neurological Exam Neurological: Present alert, oriented X3 and CN II-XII intact Routine Psychiatric Exam Psychiatric: Present normal affect and normal thought process Results Labs 01/29/25 04:43 01/29/25 04:43 Labs: Short CBC 01/28/25 01/29/25 Range/Units 17:25 04:43 WBC 10.4 10.9 H (3.8-10.6) Thou/mm3 Hgb 15.4 15.7 (13.5-16.0) g/dL Hct 46.2 48.7 (41.0-53.0) % Plt Count 342 340 (140-440) Thou/mm3 BMP 01/28/25 01/29/25 17:25 04:43 Sodium 136 135 L Potassium 4.4 6.3 H* D Chloride 100 99 Carbon Dioxide 22.9 21.1 BUN 19 17 Creatinine 1.3 1.5 H Glucose 84 59 L Calcium 9.4 9.4 Cardiac Enzymes 01/28/25 01/28/25 Range/Units 17:25 19:35 Troponin I 7.763 H* 7.511 H* D (0.0-0.045) ng/mL Liver Function 01/28/25 01/29/25 Range/Units 17:25 04:43 Total Bilirubin 2.0 H 2.2 H (0.3-1.2) mg/dL AST 150 H 418 H (0-34) U/L ALT 154 H 272 H (10-49) U/L Alkaline Phosphatase 76 88 (46-116) U/L Albumin 3.6 3.3 L (3.5-5.0) gm/dL Urine 01/28/25 Range/Units 18:26 Urine Color Yellow (Lt Yel-Yel) Urine Clarity Turbid A (Clear/Hazy) Urine pH 6.0 (5.0-7.0) Ur Specific [employer] [place] [facility] 1.014 (1.001-1.035) Urine Protein Trace (Neg - Trace) Urine Glucose (UA) Negative (Negative) Assessment and Plan Assessment and plan (1) Acute decompensated heart failure: Status: Acute (2) Methamphetamine use: Status: Acute (3) Elevated troponin: Status: Acute (4) Epigastric pain: Status: Acute (5) Cardiomyopathy: Status: Acute Additional Assessment & Plan Additional Plan: Continue current medical management Optimize heart failure medication Elevated troponins most likely type II NC Recent echo shows severe LV dysfunction ejection fraction 15 to 20%
--- NOTE | 2025-01-29 07:48 | ESPR_ITS ---
<Statement entered by Americo Ray MD - 01/29/25 17:06> Patient is admitted overnight in view of decompensated liver cirrhosis secondary to alcohol abuse and acute kidney injury. Labs done this morning showed sodium 135, potassium 6.3, creatinine 1.5, glucose 59, total bilirubin 2.2, AST 418, ALT 272. Patient was started on ceftriaxone 2 g and albumin 50 g. Repeat labs done later showed improvement in renal functions, creatinine 1.3. Patient was given a dose of Lasix 40 mg IV. Also patient noted to have HFrEF secondary to dilated cardiomyopathy likely due to meth abuse. Noted to have troponin of 7.763 at the time of admission and does not have any chest pain, shortness of breath, palpitations. Patient was initially started on heparin drip and mechanical operator, Dr. Pelaez was consulted, later heparin drip is discontinued based on his recommendation as the troponin elevation is likely due to NSTEMI type II and clopidogrel, atorvastatin is also discontinued. Will continue to monitor renal functions and liver functions I have personally examined the patient and agree with the residents assessment and plan Patient plan of care was discussed with the attending physician, Dr. Char Ray, PGY2 Documentation for date of: 01/29/25 Subjective Subjective Interval history: Patient admitted overnight. Was seen and examined at bedside this AM. Endorses epigastric and lower abdominal pain. Patient is a poor historian, speech appears slurred and slightly delayed. Reports last drink was 5 days ago, correlates with negative alcohol on utox. No withdrawal symptoms noted. Denies hematemesis since March 2024. Endorses bright red blood in stool however bowel movement this morning was negative for blood. Not endorsing rectal pain, possible internal hemorrhoid. Will continue to monitor for more bleeding. Minimal to no ascites on exam, US abdomen confirmed, will defer paracentesis at this time. Currently on clear liquid diet, will consider advancing diet tomorrow. Low suspicion for SBP at this time but will continue to treat prophylactically with IV CFX 2g. Started on IV albumin 50g and diuresed with IV Lasix 40 x1 due to elevated creatinine, improved. Also started on IV methylpredinsolone in setting of decompensated cirrhosis. Has history of grade I esophageal varices, started on IV protonix BID, will hold octreotide as patient does not have hematemesis. Continue home dose midodrine. Labs and vitals were reviewed. Review of systems otherwise negative except what is mentioned above. Exam Vital Signs Temp Pulse Resp BP Pulse Ox O2 Del Method 96.8 F 74 27 H 96/64 92 L Room Air 01/29/25 04:00 01/29/25 06:51 01/29/25 04:00 01/29/25 06:51 01/29/25 04:00 01/29/25 04:00 Narrative Exam Physical Exam General: Awake and in no acute distress. Conversational and non-toxic appearing. HEENT: Normocephalic, atraumatic, mucous membranes moist. Mild jaundice, no scleral icterus appreciated. Heart: Tachycardic. Regular rate and rhythm, normal S1 and S2, no murmurs. Lungs: Clear to auscultation with no wheezing or crackles. Abdomen: Soft, mildly distended, epigastric and lower abdominal tenderness, positive bowel sounds. No fluid wave appreciated. No guarding or rebound tenderness. Neurologic: Alert and oriented x2 (oriented to person and place, not to time), no gross neurological deficit, and patient able to move all 4 extremities. No tongue fasciculations, tremors, or asterixis. Extremities: No edema. Skin: No rash or ecchymoses. Objective Labs 01/30/25 04:32 01/30/25 04:32 Labs: Laboratory Results - last 24 hr 01/28/25 01/28/25 01/28/25 17:25 18:26 19:18 WBC 10.4 RBC 5.06 Hgb 15.4 Hct 46.2 MCV 91 MCH 30.4 MCHC 33.3 RDW Std Deviation 52.4 H Plt Count 342 Neut % (Auto) 45 Lymph % (Auto) 41 Reynolds % (Auto) 11 Eos % (Auto) 1 Baso % (Auto) 1 Neut # (Auto) 4.7 Lymph # (Auto) 4.3 Reynolds # (Auto) 1.1 H Eos # (Auto) 0.1 Baso # (Auto) 0.1 Immature Gran # (Auto) 0.05 H Absolute Nucleated RBC 0.00 Immature Gran % 1 H Nucleated RBC % 0 PT 18.0 H INR 1.7 H APTT 29.3 Sodium 136 Potassium 4.4 Chloride 100 Carbon Dioxide 22.9 Anion Gap 13 BUN 19 Creatinine 1.3 Estim Creat Clear Calc 69.9 eGFR > 60 BUN/Creatinine Ratio [address] Glu mg/dL Hemoglobin A1c Calculated Osmolality 273 L Calcium 9.4 Corrected Calcium 9.7 Phosphorus Magnesium Total Bilirubin 2.0 H AST 150 H ALT 154 H Alkaline Phosphatase 76 Troponin I 7.763 H* B-Natriuretic Peptide > 3280 H* Total Protein 6.5 Albumin 3.6 Globulin 2.9 Albumin/Globulin Ratio 1.2 Triglycerides Cholesterol LDL Cholesterol, Calc HDL Cholesterol Cholesterol/HDL Ratio Lipase 25 Ur Collection Type Voided Urine Color Yellow Urine Clarity Turbid A Urine pH 6.0 Ur Specific [place] 1.014 Urine Protein Trace Urine Glucose (UA) Negative Urine Ketones Negative Urine Blood Negative Urine Nitrite Negative Urine Bilirubin Negative Urine Urobilinogen (Auto) 4.0 Ur Leukocyte Esterase Negative Urine RBC 3 Urine WBC 1 Ur Squamous Epith Cells < 1 Urine Bacteria None Hyaline Casts 2 H Ur Culture Indicated? Not Indicated Urine Opiates Screen Positive A Urine Fentanyl Screen Positive A Ur Barbiturates Screen Negative U Amphetamin/Meth Scrn Positive A U Benzodiazepines Scrn Positive A U Cocaine Metab Screen Negative U Marijuana (THC) Screen Negative Urine Alcohol Negative 01/28/25 01/29/25 01/29/25 19:35 04:43 05:48 WBC 10.9 H RBC 5.21 Hgb 15.7 Hct 48.7 MCV 94 MCH 30.1 MCHC 32.2 RDW Std Deviation 53.9 H Plt Count 340 Neut % (Auto) 57 Lymph % (Auto) 30 Reynolds % (Auto) 12 Eos % (Auto) 0 Baso % (Auto) 1 Neut # (Auto) 6.2 Lymph # (Auto) 3.2 Reynolds # (Auto) 1.3 H Eos # (Auto) 0.0 Baso # (Auto) 0.1 Immature Gran # (Auto) 0.08 H Absolute Nucleated RBC 0.00 Immature Gran % 1 H Nucleated RBC % 0 PT INR APTT 123.0 H* D Sodium 135 L Potassium 6.3 H* D Chloride 99 Carbon Dioxide 21.1 Anion Gap 15 BUN 17 Creatinine 1.5 H Estim Creat Clear Calc 53.2 L eGFR 56 L BUN/Creatinine Ratio 11 L Glucose [address] Glu mg/dL 117 Hemoglobin A1c 5.7 Calculated Osmolality 269 L Calcium 9.4 Corrected Calcium 10.0 Phosphorus 4.3 Magnesium 1.7 Total Bilirubin 2.2 H AST 418 H ALT 272 H Alkaline Phosphatase 88 Troponin I 7.511 H* D B-Natriuretic Peptide Total Protein 6.2 Albumin 3.3 L Globulin 2.9 Albumin/Globulin Ratio 1.1 L Triglycerides 55 Cholesterol 107 L LDL Cholesterol, Calc 78 HDL Cholesterol 18 L Cholesterol/HDL Ratio 5.9 Lipase Ur Collection Type Urine Color Urine Clarity Urine pH Ur Specific [place] Urine Protein Urine Glucose (UA) Urine Ketones Urine Blood Urine Nitrite Urine Bilirubin Urine Urobilinogen (Auto) Ur Leukocyte Esterase Urine RBC Urine WBC Ur Squamous Epith Cells Urine Bacteria Hyaline Casts Ur Culture Indicated? Urine Opiates Screen Urine Fentanyl Screen Ur Barbiturates Screen U Amphetamin/Meth Scrn U Benzodiazepines Scrn U Cocaine Metab Screen U Marijuana (THC) Screen Urine Alcohol Quality Measures Quality Measures VTE prophylaxis Assessment & Plan Assessment Current Active Medications: Generic Name Dose Route Start Last Admin Trade Name Freq PRN Reason Stop Dose Admin Acetaminophen 650 mg 01/28/25 22:17 01/29/25 01:03 Acetaminophen 325 Mg Tablet PO 02/27/25 22:16 650 mg Q6H PRN Administration Fever >101.5 Aspirin 81 mg 01/29/25 09:00 Aspirin Ec 81 Mg Tabec PO 02/28/25 08:59 QDAY WILL Atorvastatin Calcium 80 mg 01/29/25 21:00 Atorvastatin Calcium 20 Mg Tablet PO 02/28/25 20:59 HS [facility] Clopidogrel Bisulfate 75 mg 01/29/25 09:00 Clopidogrel Bisulfate 75 Mg Tablet PO 02/28/25 08:59 QDAY WILL Diazepam 5 mg 01/28/25 22:23 Diazepam Inj 5 Mg/Ml Vial 2 Ml IVP X1 PRN Breakthrough Agitation Heparin Sodium/Dextrose 25,000 unit in 250 mls @ 9.906 mls/hr 01/28/25 22:30 01/29/25 06:47 Heparin In D5w Ivpb IV 02/11/25 22:29 0 units/kg/hr .Q24H WILL 0 mls/hr Titration Protocol 12 UNITS/KG/HR Magnesium Sulfate 4 gm in 50 mls @ 12.5 mls/hr 01/29/25 07:38 Magnesium Sulfate Ivpb IV 01/29/25 11:37 X1 ONE Ceftriaxone Sodium 2 gm/ 50 mls @ 100 mls/hr 01/29/25 07:43 Sodium Chloride IV 02/05/25 07:42 QDAY WILL Lorazepam 0.5 mg 01/28/25 22:23 Lorazepam 0.5 Mg Tablet PO 02/02/25 22:22 Q4HR PRN CIWA Score 2-6 Lorazepam 1 mg 01/28/25 22:23 Lorazepam 0.5 Mg Tablet PO 02/02/25 22:22 Q4HR PRN CIWA SCORE 7-11 Lorazepam 2 mg 01/28/25 22:23 Lorazepam 0.5 Mg Tablet PO 02/02/25 22:22 Q4HR PRN CIWA SCORE 12-15 Meclizine HCl 25 mg 01/28/25 22:21 01/29/25 01:03 Meclizine Hcl 25 Mg Tablet PO 02/27/25 22:20 25 mg TID PRN Administration NAUSEA Metoprolol Tartrate 12.5 mg 01/29/25 09:00 Metoprolol Tartrate 25 Mg Tablet PO 02/28/25 08:59 BID WILL Midodrine 10 mg 01/29/25 06:30 01/29/25 06:51 Midodrine 5 Mg Tablet PO 02/28/25 06:29 10 mg TID WILL Administration Pantoprazole Sodium 40 mg 01/29/25 09:00 Pantoprazole Inj 40 Mg Vial IVP 02/28/25 08:59 QDAY WILL Plan Patient is a 49 year old male with PMH of alcoholic cirrhosis, HFrEF (EF 15- 20%), meth and cocaine abuse who presents on 01/28 for acute on chronic generalized abdominal pain, admitted for decompensated cirrhosis secondary to chronic alcohol abuse and MARQUITA. #Decompensated cirrhosis 2/2 #Chronic alcohol abuse #Abdominal pain #c/f SBP #Transaminitis #Hypotension Reports drinking 1 pack of 12 can beers daily, last drink was 5 days ago. Admission AST/ALT 418/272, total bili 2.2, albumin 3.4, INR 1.7. CT A/P 01/28/25 showed gallbladder wall thickening, cirrhosis with significant ascites, and urinary bladder wall thickening suggesting cystitis. No bowel obstruction noted. Endorses epigastric and lower abdominal tenderness, no RUQ tenderness however has mild jaundice on exam. A&Ox2 however unclear baseline. Little to no ascites on exam. Abdominal US confirms minimal ascitic fluid. Transaminitis likely secondary to alcoholic hepatitis versus acute on chronic heart failure. Per review of records, patient was recently admitted 01/18-01/23/25 for similar decompensated cirrhosis, as well as melena and coffee ground emesis. EGD completed at the time showed grade I esophageal varices, gastritis, and erythema of the duodenum. Also noted possible gastric motility disorder. Was recommended to continue octreotide and protonix for 3 days. Also started on IV CFX, midodrine, spiranolactone, and Lasix. Scores: MELD 19, estimated 19.6% 3 month mortality Maddrey 29.8, good prognosis, may/may not glucocorticoid therapy Child Keita class B Plan: - IV CFX 2 g for SBP prophylaxis - IV albumin 25 g - IV methylprednisolone 40mg daily - Continue midodrine 10 mg TID - Will defer paracentesis at this time as minimal ascitic fluid on US abdomen - Simethicone 80 mg prn for bloating #Alcohol withdrawal #Alcohol abuse Reports last drink was 5 days ago. Utox negative for alcohol. Previously attempted alcohol cessation multiple times without much success, participated in Alcoholics Anonymous. Plan: - CIWA protocol with Ativan - CTM signs of alcohol withdrawal #Hematochezia, intermittent Reports bright red blood per rectum but denies pain or straining with bowel movements. Possible internal hemorrhoid versus lower GI bleed. Hgb within normal limits, lower suspicion for acute LGIB. Plan: - CTM Hgb for drop - Follow up FOBT #HFrEF (EF 15-20%) (echo 01/18/25) 2/ #Dilated cardiomyopathy Echo 01/18/25 showed moderate to severely dilated LV. Severe systolic dysfunction with severe global hypokinesis. Grade II diastolic dysfunction. Estimated EF 15- 20%. Mildly dilated RV. Mild RV dysfunction. Moderately elevated estimated RVSP, 46 mmHg. RAP 5. Moderate MR. Mild to moderate TR. Likely secondary to meth abuse. Started on GDMT (spiranolactone, metoprolol, losartan) on last admission. Home meds include metoprolol XL 12.5 daily and Lasix 40 mg daily. Previously followed by mechanical operator Dr. Osborne, does not follow mechanical operator outpatient. Mild-moderate HF pattern on CT A/P 01/28, patient reports he is inconsistent with taking his medications. S/p Lasix IV 80mg x2 overnight. Plan: - S/p IV Lasix 40 mg x1 - Hold home dose metoprolol XL and spiranolactone due to low BP, restart once improve - Consider starting on other GDMT as tolerated based on poor EF - Consulted cardiology Dr. Pelaez, appreciate recommendations #Elevated troponin #NSTEMI II #Hx meth abuse Admission troponin 7.763 -> 7.511 but denied chest pain, shortness of breath, and palpitations. EKG showed sinus tachycardia with no ST or T wave abnormalities. Likely NSTEMI II secondary to meth abuse. Utox positive for meth. Modeling Instructor Dr. Pelaez consulted overnight, started on heparin drip, Plavix, and ASA. Plan: - Discontinued heparin drip, ASA, and Plavix as likely NSTEMI II - CTM for chest pain or signs of NV - Consult cardiology Dr. Pelaez, appreciate recommendations #MARQUITA prerenal, resolved Admission creatinine elevated 1.5, improved to 1.3 s/p IV albumin 25g. Likely prerenal secondary to dehydration in setting of chronic alcohol abuse. Plan: - CTM renal function - Encourage oral rehydration #Hyperkalemia, resolved Admission potassium 4.4 -> 6.3. S/p insulin, albuterol, and calcium gluconate with improvement to 3.9. Plan: - CTM CMP #Dizziness Patient is poor historian but reports he was prescribed meclizine 25 mg TID for dizziness. Unclear etiology. Plan: - Continue home meclizine Health Maintenance Disposition: tele for management of decompensated liver cirrhosis DVT prophylaxis: SCDs, no meds due to concern for LGIB GI prophylaxis: IV protonix 40 mg, simethicone Diet: Clear liquid diet CODE STATUS: FULL Patient plan of care was discussed with the resident, Dr. Ray, and attending physician, Dr. Pardo. Coreen Miles, PGY-1 Attending Provider Attestation/Addendum I, Sheron Pardo, , attest that I was physically present for the mckeon portions of the service and evaluated the patient with the resident and I reviewed and discussed the case with the resident and agree with the resident's findings and plans of care as documented above Patient seen and eval this a.m. Patient is very somnolent and tired. He states that he drinks 1 beer a day, but has stopped for the past 5 days. Patient was recently discharged from the hospital after which he was worked up for liver cirrhosis and SBP. Patient had been found to have severe dilated cardiomyopathy with an ejection fraction of 15 to 20%. He also had an endoscopy with findings of esophageal varices and gastritis. Patient was discharged home with antibiotics due to complaints of abdominal and and concern for SBP. Patient states that he has stopped drinking alcohol or using drugs since his discharge. However, patient was not upfront about compliance with his medications. He states that he has intermittent colic that is diffuse in his abdomen. He denies any active chest pain. Troponin was noted to be 7 on presentation. Patient also denies any shortness of breath. Patient was seen by cardiology this morning and suspects type II NSTEMI as a cause for his elevated troponins given his significant left ventricular dysfunction. EKG does not show any ST or T wave changes. Will DC heparin drip and antiplatelets at this time as patient was recently here for GI bleed. Patient reported nausea and vomiting on presentation, but has not had any episodes per nursing. Hemoglobin has otherwise been stable. He has noted to have MARQUITA. Patient has received 50 mg of albumin and total. Ascites was noted on CT, but does not appear to be significant for paracentesis. Will continue with Rocephin 2 g as empiric treatment of SBP. Suspect cardio renal syndrome as possible cause for MARQUITA. Will also give patient 1 dose of Lasix. Maddrey's score is noted to be 34. Will give patient Solu-Medrol IV and monitor LFTs.
--- NOTE | 2025-01-29 08:00 | XR_ITS ---
Examination: Abdomen sonogram, Limited Date and time of exam: January 29, 2025 12 noon INDICATIONS: Abdominal distention this week Technique: Real-time briceno scale transabdominal sonographic images of the upper abdomen obtained. Findings: Minimal ascitic fluid IMPRESSION: Minimal ascitic fluid
[2025-01-29] MEDS: SODIUM CHLORIDE RT SOL 0.9% 3 ML NEBU INH (08:22)
[2025-01-29] MEDS: ALBUTEROL RT 2.5 MG/0.5 ML NEBU INH (08:22)
[2025-01-29 09:05] LABS: Anion Gap 13 (7-16); BUN/Creatinine Ratio 13 Ratio (12-20); Blood Urea Nitrogen 18 mg/dL (9-23); Calcium 9.7 mg/dL (8.3-10.6); Carbon Dioxide 24.3 mMol/L (20.0-31.0); Chloride 100 mMol/L (98-107); Creatinine (Component) 1.4 mg/dL (0.6-1.3); Estimated Creatinine Clearance 56.7 mL/min (>60); Glucose 165 mg/dL (74-106); Osmolality,Calculated 279 (275-295); Potassium 3.9 mMol/L (3.4-5.1); Sodium 137 mMol/L (136-145); eGFR > 60 See Note
[2025-01-29] MEDS: Magnesium Sulfate 4 GM Ivpb 4 GM/50 ML BAG IV (09:12)
[2025-01-29] MEDS: METOPROLOL TARTRATE 25 MG TABLET 12.5 MG PO (09:12)
[2025-01-29 10:46] LABS: Albumin, Serum 3.4 gm/dL (3.5-5.0); Anion Gap 12 (7-16); BUN/Creatinine Ratio 12 Ratio (12-20); Blood Urea Nitrogen 15 mg/dL (9-23); Calcium 9.6 mg/dL (8.3-10.6); Calcium (Corrected) 10.1 mg/dL (8.5-10.1); Carbon Dioxide 22.9 mMol/L (20.0-31.0); Chloride 102 mMol/L (98-107); Creatinine (Component) 1.3 mg/dL (0.6-1.3); Estimated Creatinine Clearance 61.1 mL/min (>60); Glucose 98 mg/dL (74-106); Osmolality,Calculated 274 (275-295); Phosphorous 4.2 mg/dL (2.4-5.1); Potassium 3.9 mMol/L (3.4-5.1); Sodium 137 mMol/L (136-145); eGFR > 60 See Note
--- NOTE | 2025-01-29 11:15 | PC.NURSE ---
Per Dr.Lau coleman to give albumin
[2025-01-29] MEDS: FUROSEMIDE INJ 10 MG/ML 4ML VIAL 40 MG IVP (11:28)
[2025-01-29 13:10] LABS: Hematocrit 45.1 % (41.0-53.0); Hemoglobin 14.6 g/dL (13.5-16.0)
[2025-01-29 13:49] LABS: Partial Thromboplastin Time 35.4 Seconds (22.0-36.0)
--- NOTE | 2025-01-29 15:54 | PC.SS ---
SS attempted to meet with pt regarding his d/c plan. Pt was difficult to understand and kept complaining about stomach pain. Pt understood SS was attempting to obtain information for his d/c plan but pt would not engage in conversation. SS attempted to call Jaci Blankenship, , phone# [phone] but call went to voicemail (voicemail has not been setup). SS also called Sylvia Blankenship, sister and he phone is unable to accept messages (voicemail has not been setup). Pt was able to state he utilizes a 2 wheel walker.
[2025-01-29] MEDS: ATORVASTATIN CALCIUM 20 MG TABLET 80 MG PO (19:52)
[2025-01-29] MEDS: SIMETHICONE 80 MG CHEW PO (19:52)
[2025-01-29] MEDS: cefTRIAXone/D5w 2gm 2 GM/50 ML BAG IV (19:53)
--- NOTE | 2025-01-29 23:20 | PC.NURSE ---
At 2300, I spoke with the patient's sister Sylvia to inquire about the home medication list. She informed me that she does not have the list but provided the contact information for case management at the rehabilitation facility, [facility] ([phone]). I called the test case developer, Kellee, at 2330 and instructed her to bring the patient's prescription bottles to the hospital in the morning. Kellee confirmed that she will attempt to do so. Care continued.
[2025-01-30] VITALS (11 sets, daily range): BP systolic 104–124; BP diastolic 68–84; PULSE 75–101; RESP 14–97; TEMP 35.9–36.4; O2SAT 95–99; BMI 22.5
[2025-01-30 06:09] LABS: Basophils # (Auto) 0.1 Thou/mm3 (0.0-0.2); Basophils % (Auto) 1 % (0-2.5); Eosinophils # (Auto) 0.2 Thou/mm3 (0.0-0.5); Eosinophils % (Auto) 2 % (0-10); Hematocrit 46.4 % (41.0-53.0); Hemoglobin 14.7 g/dL (13.5-16.0); Immature Granulocytes Auto 0.05 Thou/mm3 (0.00-0.00); Lymphocytes # (Auto) 3.7 Thou/mm3 (1.0-4.8); Lymphocytes % (Auto) 40 % (10-50); Mean Corpuscular HGB Conc 31.7 g/dl (31.0-37.0); Mean Corpuscular Hemoglobin 29.4 pg (25.0-35.0); Mean Corpuscular Volume 93 fL (80-100); Monocytes # (Auto) 0.8 Thou/mm3 (0.0-0.8); Monocytes % (Auto) 9 % (0-12); Neutrophils # (Auto) 4.4 Thou/mm3 (1.8-7.7); Neutrophils % (Auto) 47 % (37-80); Nucleated Red Blood Cell # 0.00 Thou/mm3 (0.00-0.00); Nucleated Red Blood Cell % 0 /100 WBC (0); Platelet Count 298 Thou/mm3 (140-440); RDW Standard Deviation 53.2 fL (35.1-43.9); Red Blood Count 5.00 Miln/mm3 (4.50-5.90); White Blood Count 9.3 Thou/mm3 (3.8-10.6)
[2025-01-30 06:21] LABS: INR 1.8 (0.9-1.3); Partial Thromboplastin Time 33.9 Seconds (22.0-36.0); Prothrombin Time 18.6 Seconds (9.0-12.2)
[2025-01-30 06:37] LABS: Alanine Aminotransferase 205 U/L (10-49); Albumin, Serum 3.3 gm/dL (3.5-5.0); Albumin/Globulin Ratio 1.2 (1.2-2.2); Alkaline Phosphatase 68 U/L (46-116); Anion Gap 11 (7-16); Aspartate Amino Transferase 208 U/L (0-34); BUN/Creatinine Ratio 14 Ratio (12-20); Bilirubin,Total 1.5 mg/dL (0.3-1.2); Blood Urea Nitrogen 17 mg/dL (9-23); Calcium 9.2 mg/dL (8.3-10.6); Calcium (Corrected) 9.8 mg/dL (8.5-10.1); Carbon Dioxide 26.4 mMol/L (20.0-31.0); Chloride 102 mMol/L (98-107); Creatinine (Component) 1.2 mg/dL (0.6-1.3); Estimated Creatinine Clearance 66.0 mL/min (>60); Globulin 2.7 gm/dL (2.3-3.5); Glucose 101 mg/dL (74-106); Osmolality,Calculated 279 (275-295); Potassium 3.9 mMol/L (3.4-5.1); Sodium 139 mMol/L (136-145); Total Protein 6.0 gm/dL (5.7-8.2); eGFR > 60 See Note
[2025-01-30] MEDS: ALBUMIN HUMAN 25% IVPB 25 GM/100 ML BTL IV (08:29)
--- NOTE | 2025-01-30 11:51 | ESDS_ITS ---
<Statement entered by Sheron Pardo DO - 01/31/25 08:49> I, Sheron Pardo DO, attest that I was physically present for the mckeon portions of the service and evaluated the patient with the resident and I reviewed and discussed the case with the resident and agree with the resident's findings and plans of care as documented above <Statement entered by Americo Rya MD - 01/30/25 18:58> 49-year-old male with significant past medical history of alcoholic cirrhosis, chronic alcohol abuse disorder, HFrEF (15 to 20%], meth and cocaine abuse pre sented to the hospital with chief complaints of abdominal pain and admitted for decompensated cirrhosis secondary to continued alcohol abuse and acute kidney injury. Patient was treated with albumin, Lasix, antibiotics. Noted to have significant improvement in renal functions, back to his normal baseline. Was started on steroids in view of Madrey discrimination factor of 34. Abdominal ultrasound was done but did not find any significant ascites. Also was started on CIWA protocol during admission but patient did not receive any medications. On the day of discharge, patient complained of shortness of breath for which patient was given a dose of Lasix and albuterol but patient denied the medication despite explaining the risks and prognosis. Noted to have stable vitals despite shortness of breath. During the hospital stay car body designer, Dr. Pelaez was consulted as patient was found to have NSTEMI with troponin of around 7, for which Dr. Pelaez recommended no need of heparin drip or antiplatelets as it is likely NSTEMI type II in the setting of active meth abuse and ongoing dilated cardiomyopathy. Patient was started on GDMT. Recommended alcohol and methamphetamine cessation. medical and health services manager were consulted. I have personally seen and examined the patient, agree with the residents assessment and plan Patient plan of care was discussed with the Attending physician, Dr. Char Ray, PGY2 Planned Discharge Date 01/30/25 DS: Providers Provider Date of admission: 01/28/25 22:17 Primary care physician: Justin Millan MD Admitting Provider: Rambo Barahona MD Attending Provider on Admission: Sheron Pardo DO Consults: 01/28/25 20:29 Consult to Cardiology Stat Comment: Consulting Provider: Linh Pelaez Attending Provider on DC: RESIDENT Mouna Discharging Provider: RESIDENT Mouna DS: Diagnosis Problem List Completed Was Problem List Reviewed/Reconciled?: Yes Hospital Course Hospital Course Hospital course: Summary: Patient is a 49 year old male with PMH of alcoholic cirrhosis, HFrEF (EF 15-20%), meth and cocaine abuse who presents on 01/28 for acute on chronic generalized abdominal pain, admitted for decompensated cirrhosis secondary to chronic alcohol abuse and MARQUITA. ED Course: -Vitals: BP 110/81, pulse 123, temp 97.4, O2 sat 100% on room air -Labs: PT 18, INR 1.7, T. bili 2, AST 150, ALT 154, Trops 7.763, BNP 3280, urine positive opiates, fentanyl, amphetamine, benzodiazepine and negative alcohol -Imaging: CT Abd/pelvis shows cirrhosis with significant ascites, cirrhosis, gallbladder wall thickening, cystitis EKG showed sinus tachycardia, V5-V6 ST changes from previous EKG,QTc 568. -Given in ED: NS fluid, lorazepam 1 mg X1, ceftriaxone, aspirin 325 mg, Plavix 5 mg, metoprolol 25 mg, heparin drip, meclizine -Patient was admitted for elevated troponins workup and management Reason for hospitalization: Patient is a 49 year old male with PMH of alcoholic cirrhosis with history of chronic alcohol abuse, HFrEF (EF 15-20%), meth and cocaine abuse who presents on 01/28/25 for acute on chronic generalized abdominal pain, admitted for decompensated cirrhosis secondary to chronic alcohol abuse and MARQUITA. Of note, patient was recently admitted from 01/18-01/23/25 for same symptoms, as well as melena and coffee ground emesis. EGD completed at the time showed grade I esophageal varices, gastritis, and erythema of the duodenum. Also noted possible gastric motility disorder. Was recommended to continue octreotide and protonix for 3 days. Also started on IV CFX, midodrine, spiranolactone, and Lasix. On this admission he was treated with IV albumin and diuresed with Lasix, MARQUITA resolved with diuresis, suspect cardiorenal syndrome. Initial CT A/P noted significant ascites but minimal to none on repeat ultrasound, paracentesis was not completed. Started on IV ceftriaxone 2g for empiric treatment of SBP. Maddr ey score was elevated at 34, thus was started on IV methylprednisolone 40mg daily. He reported last drink was either 3-5 days ago, patient was not a very reliable historian. Was started on CIWA protocol but did not observe withdrawal symptoms at all during admission course. Patient also reported intermittent hematochezia. Patient had multiple bowel movements during hospital course, all of which did not show any blood. During hospital course, he was found to have elevated troponins in 7s likely secondary to NSTEMI II in setting of meth abuse history. Mixer Slagman Dr. Pelaez was consulted, recommended starting on heparin drip, Plavix, ASA, and statin however was later discontinued as patient was asymptomatic and is known to have significant left ventricular dysfunction. EKG was negative for ST or T wave changes. Patient has known heart failure with dilated cardiomyopathy with significantly reduced EF 15-20%, also likely secondary to chronic meth use. Blood pressure was stable on home midodrine 10 mg TID. Was started on GDMT Coreg 3.125 mg BID, Lasix 40 mg daily, and Losaratan 25 mg daily. Consider restarting on spiranolactone outpatient. Instructed to hold metoprolol as well. Patient was stable upon discharge. Will follow up with PCP at [facility] but was also interested in possibly following with [facility], contact information given. Was encouraged to follow up with car body designer and feather boner. Will be discharged new medications Bentyl for abdominal cramps and oral methylprednisolone 40 mg with taper for total 28 day course. Discharge Recommendations: -Please start taking Coreg 3.125 mg by mouth twice a day with meals for both your heart failure and liver cirrhosis -Please take dicyclomine 10 mg by mouth twice a day as needed for abdominal pain -Hold and stop taking Spironolactone until you are seen by your PCP and your blood pressure is rechecked -Stop taking Levofloxacin and metoprolol succinate -Continue all other home medications as prescribed -Follow-up with your PCP within 1 week after hospital. You need to be seen by a car body designer and strapper and buffer -If you don't have a PCP, you can make an appointment at the [facility]: [address] [place] [address] -If your symptoms worsen or if you develop new chest pain, shortness of breath, dizziness, severe abdominal pain or bleeding - please come back to the ED immediately. Hospital Diagnoses: #Decompensated alcoholic liver cirrhosis 2/2 #Chronic alcohol abuse #Abdominal pain, resolved #Transaminitis #Hypotension #Alcohol withdrawal #Alcohol abuse #Hematochezia, intermittent #HFrEF (EF 15-20%) (echo 01/18/25) 2/2 #Dilated cardiomyopathy #Elevated troponin #NSTEMI II #Hx meth abuse #MARQUITA prerenal, resolved #Hyperkalemia, resolved #Dizziness Disposition: Safe disposition to homeless intermediate. Patient plan of care was discussed with the resident, Dr. Ray, and attending physician, Dr. Pardo. Coreen Miles, PGY-1 Time Spent with Patient Time attestation: Total time spent providing and/or coordinating discharge services: at least 30 minutes of care coordination Time spent: Greater than 30 minutes Exam Vital Signs Temp Pulse Resp BP Pulse Ox O2 Del Method 97.5 F 99 17 114/80 99 Room Air 01/30/25 08:00 01/30/25 08:29 01/30/25 08:00 01/30/25 08:29 01/30/25 08:00 01/30/25 08:00 Narrative Exam Physical Exam General: Awake and in no acute distress. Conversational and non-toxic appearing. HEENT: Normocephalic, atraumatic, mucous membranes moist. Mild jaundice, no scleral icterus appreciated. Heart: Regular rate and rhythm, normal S1 and S2, no murmurs. Lungs: Clear to auscultation with no wheezing or crackles. Abdomen: Soft, mildly distended, nontender, positive bowel sounds. No fluid wave appreciated. No guarding or rebound tenderness. Neurologic: Alert and oriented x2 (oriented to person and place, not to time), no gross neurological deficit, and patient able to move all 4 extremities. No tongue fasciculations, tremors, or asterixis. Extremities: No edema. Skin: No rash or ecchymoses. Discharge Plan Plan Patient Disposition: HOME (Self Care) Care Plan Goals: Please start taking Coreg 3.125 mg by mouth twice a day with meals for both your heart failure and liver cirrhosis Please take dicyclomine 10 mg by mouth twice a day as needed for abdominal pain Please take budesonide-formoterol 80-4.5 inhaler 2 puffs twice a day for asthma control Please take prednisone 40 mg (2 tablets of 20mg) once a day for 27 additional days Hold and stop taking Spironolactone until you are seen by your PCP and your blood pressure is rechecked Stop taking Levofloxacin and metoprolol succinate Continue all other home medications as prescribed Follow-up with your PCP within 1 week after hospital. You need to be seen by a car body designer and strapper and buffer If your symptoms worsen or if you develop new chest pain, shortness of breath, dizziness, severe abdominal pain or bleeding - please come back to the ED immediately. Prescriptions/Referrals Prescriptions/Med Rec: New carvedilol 3.125 mg Tablet 3.125 mg PO BIDWM 30 Days Qty: 60 1RF dicyclomine 10 mg capsule 10 mg PO BID PRN (Reason: abdominal pain) Qty: 30 0RF prednisone 20 mg tablet See Taper PO BID 27 Days Qty: 54 0RF Taper: Prednisone Taper 20 mg DAILY for 27 Days and 0 Hour budesonide-formoterol 80-4.5 mcg/actuation HFA aerosol inhaler 2 puff inhalation BID Qty: 10.2 2RF Continued pantoprazole 40 mg tablet,delayed release (DR/EC) 40 mg PO QDAY 14 Days Qty: 14 0RF furosemide [Lasix] 40 mg tablet 40 mg PO QAM 14 Days Qty: 14 0RF Discontinued levofloxacin 750 mg tablet 750 mg PO QDAY 7 Days Qty: 7 0RF metoprolol succinate 25 mg tablet extended release 24 hr 12.5 mg PO QDAY 7 Days Qty: 4 0RF Referrals: Justin Millan MD [Primary Care Provider, Family Practice] Patient/Caregiver Discharge Instructions Education Materials: Paracentesis Dc, Treating Cirrhosis, Understanding Cirrhosis, Coping with Heart Failure, Eating Heart-Healthy Foods Print Language: Hungarian Stand Alone Forms: Shweta Award Info., Patient Portal Info Letter Discharge Order Discharge Orders: Discharge (Routine); Ordered 01/30/25 Ordered By: Coreen Miles Quality Discharge Quality Measures VTE prophylaxis
--- NOTE | 2025-01-30 11:58 | PC.SS ---
SS met with patient regarding his d/c plan. Pt is alert/oriented. Pt was admitted for Abdominal Pain/ High Troponin. Pt states he is from the [facility] and will return upon dc. Pt has a shirt, pants, underwear, and shoes. Patient's tox screen was positive for meth and fentanyl. Pt would not engage in conversation with pt about his drug use. SS offered community resources and pt was receptive. Pt ambulates independently without assistance or DME. Pt is ok with all ADLs. Pt states he has been struggling to ambulate due to having pain. provided pt with a cane. Pt named his sister, Sylvia Blankenship medical decision maker if he is unable. has called Kellee from [facility] to inform her pt will be returning today. Bedside nurse, Leyla and Lamar URIAS are aware to order a sack lunch for pt at d/c. provided Lamar URIAS with [facility] phone#. Pt states he will follow up with PCP. D/C plan: Return to [facility] Next of Kin: Sylvia Blankenship, sister, phone# [phone] PCP: [facility] Address: Correct on facesheet
--- NOTE | 2025-01-30 12:47 | PC.NURSE ---
pt discharging top [facility], transportation provided and sack lunch given, pt has appropriate clothing at bedside
[2025-01-30] MEDS: ALBUTEROL RT 2.5 MG/0.5 ML NEBU INH (15:48)
--- NOTE | 2025-01-30 15:55 | PC.LAC ---
Pt was c/0 of sob, however sating 98% RA. Pt waiting for ride to dc to [facility]. Called Md who came to bedside to asses, ordered lasix and breathing tx. Pt refused lasix and agreeable to breathing treatment and is now saying he feels better and wants to dc anyway. Pt was educated and told inhalers have been ordered for him
== END 2025-01-30 16:24 | disposition home or self-care (01) | DRG 280 ==
LOC: SERX 22:20 → SERHOLD 22:28 → S2NX 01-29 00:08
PROVIDERS: Nurse Practitioner Family; Admitting Provider Student in an Organized Health Care Education/Training Program; Emergency Provider Emergency Medicine; PCP Family Medicine; Visit Provider Internal Medicine
DX: K70.31 Alcoholic cirrhosis of liver with ascites (principal); I50.23 Acute on chronic systolic (congestive) heart failure; I21.A1 Myocardial infarction type 2; N30.90 Cystitis, unspecified without hematuria; I42.0 Dilated cardiomyopathy; E87.5 Hyperkalemia; F10.139 Alcohol abuse with withdrawal, unspecified; F15.10 Other stimulant abuse, uncomplicated; G89.29 Other chronic pain; I85.10 Secondary esophageal varices without bleeding; Z87.891 Personal history of nicotine dependence; Z79.899 Other long term (current) drug therapy; N17.9 Acute kidney failure, unspecified; I95.9 Hypotension, unspecified; F14.10 Cocaine abuse, uncomplicated; Z79.02 Long term (current) use of antithrombotics/antiplatelets; Z79.82 Long term (current) use of aspirin
CPT/HCPCS: 36415; 74177; 76705; 80048; 80053; 80061; 80069; 80307; 80320; 81001; 82042; 82150; 82945; 83036; 83615; 83690; 83735; 83880; 83993; 84100; 84157; 84484; 85014; 85018; 85025; 85610; 85730; 87070; 87075; 87081; 87205; 89051; 93005; 94640; 96361; 96365; 96366; 96375; 99285; A4649; J0612; J0696; J1644; J1815; J1938; J2470; J2919; J3475; J7030; J7050; P9047; Q9967; A9270; G0480

== ENCOUNTER 2025-02-10 12:26 | Emergency (ER) | payer MEDICAID, SELFPAY ==
[2025-02-10 12:28] VITALS: BMI 21.2
[2025-02-10 12:29] VITALS: BP 117/86; PULSE 114; RESP 18; TEMP 36.3; O2SAT 98
--- NOTE | 2025-02-10 12:36 | EKG_ITS ---
[facility] Test Date: 2025-02-10 Pat Name: KALPANA FAIRCHILD Department: Room: - Gender: Male Drafter Assistant: : 1975 Requested By: Mahsa Gaytan Order Number: [id number] Reading MD: Mahsa Gaytan Measurements Intervals Hobbs Rate: 108 P: 49 ID: [id number] QRS: -55 QRSD: 96 T: 57 QT: 402 QTc: 541 Interpretive Statements SINUS TACHYCARDIA LEFT ATRIAL ENLARGEMENT [-0.15mV P-WAVE IN V1/V2] LEFT ANTERIOR FASCICULAR BLOCK [QRS AXIS <= -45, QR IN I, RS IN II] NONSPECIFIC T-WAVE ABNORMALITY Compared to ECG 01/29/2025 06:57:42 T-wave abnormality now present Sinus rhythm no longer present Myocardial infarct finding no longer present /store/S0/[id number].pdf
--- NOTE | 2025-02-10 12:36 | EDNOTE_ITS ---
ED Abdominal Pain RME/HPI General Chief Complaint: Abdominal Pain Stated complaint: ABD PAIN Time seen by provider: 02/10/25 12:34 Arrival date/time: 02/10/25 12:26 RME / HPI RME / HPI narrative: DR. MORENO MAIN ED EVALUATION: 49-year-old male with a history of alcoholic cirrhosis, chronic alcohol abuse disorder, HFrEF (EF 15?20%), and meth/cocaine abuse presents via EMS from home for abdominal pain ongoing for 3-4 days. Pain is associated with constipation, and poor appetite. He complains of nausea but denies vomiting. No fevers or chills. Recently diagnosed with a lung infection by his PCP and has been on ciprofloxacin for 2 days. Related Data Previous Rx's ?Medication ?Instructions ?Recorded budesonide-formoterol HFA 80 2 puff inhalation BID #10 .2 grams 01/30/25 mcg-4.5 mcg/actuation aerosol inhaler carvedilol 3.125 mg tablet 3.125 mg PO BIDWM 1 month # 60 tabs 01/30/25 dicyclomine 10 mg capsule 10 mg PO BID PRN abdominal p ain 01/30/25 #30 caps prednisone 20 mg tablet See Taper PO BID 27 days #54 tabs 01/30/25 omeprazole 20 mg capsule,delayed 20 mg PO QDAY #30 cap s 02/10/25 release Allergies Allergy/AdvReac Type Severity Reaction Status Date / Time No Known Allergies Allergy Verified 01/17/25 14:29 Review of Systems Review of Systems Systems Reviewed: All systems reviewed, normal except as documented Past Medical History Past Medical History CARDIAC: Positive Cardiac Disorders and Congestive Heart Failure RESPIRATORY: Positive Pulmonary Embolism GASTROINTESTINAL: Positive Cirrhosis PSYCHO/SOCIAL: Positive Recreational Drug Use, Depression and Anxiety OTHER HISTORY: Positive Blood Transfusions Family History FAMILY HISTORY: Positive Family Cardiac Disorders Social History SMOKING STATUS: Former smoker SUBSTANCE USE: does not use ED Exam Narrative Physical exam: GENERAL APPEARANCE: alert and oriented x 4, well-developed, well-nourished, no acute distress, mild pallor? VITALS: All vitals were reviewed and the pulse ox is 98% on room air, which is normal according to my interpretation. HEENT: Normocephalic, atraumatic; pupils equal, round, reactive to light; EOMI; mucous membranes pink, moist; oropharynx clear NECK: Supple LUNGS: CTABL; no wheezes, no rales, no rhonchi HEART: Regular rate, regular rhythm; normal S1, S2; no murmurs ABDOMEN: Mild distended abdomen; normal BS; some abdominal tenderness mainly in the epigastric; no masses, no organomegaly, no hernia BACK: no CVA tenderness EXTREMITIES: atraumatic; no edema NEUROLOGIC: awake; alert and oriented x4; cranial nerves II-XII grossly intact; no focal sensory or motor deficits PSYCHIATRIC: appropriate mood and affect SKIN: warm, dry, mild pallor; no rashes Course Quality Measures none Orders Category Date Time Status Gear Shaper NOW Care 02/10/25 12:36 Active EKG (ED ONLY) *Do not use* NOW Care 02/10/25 12:36 Completed EKG (ED Only) Stat Exams 02/10/25 12:36 Draft XR abdomen series w chest 1V Stat Exams 02/10/25 12:37 Completed Alcohol, Blood Medical Stat Lab 02/10/25 13:14 Completed Ammonia Stat Lab 02/10/25 13:14 Completed Amylase Stat Lab 02/10/25 13:14 Completed B-Type Natriuretic Peptide Stat Lab 02/10/25 13:14 Completed CBC Stat Lab 02/10/25 13:14 Completed Comprehensive Metabolic Panel Stat Lab 02/10/25 13:14 Completed Drug Screen,Urine Stat Lab 02/10/25 12:40 Completed Magnesium Stat Lab 02/10/25 13:14 Completed Partial Thromboplastin Time Stat Lab 02/10/25 13:14 Completed Prothrombin Time with INR Stat Lab 02/10/25 13:14 Completed Troponin I Stat Lab 02/10/25 13:14 Completed Troponin I Stat Lab 02/10/25 15:27 Completed Lidocaine 2% Viscous [Xylocaine 2% Viscous] Med 02/10/25 12:36 Discontinued 15 ml PO X1 ONE Pantoprazole [Protonix] Med 02/10/25 12:37 Discontinued 40 mg PO X1 ONE mg Hyd/Al Hyd/Celine Susp [Maalox Susp] Med 02/10/25 12:36 Discontinued 30 ml PO X1 ONE Vital Signs Vital signs: Vital Signs Temperature 97.4 F 02/10/25 12:29 Pulse Rate 114 H 02/10/25 12:29 Respiratory Rate 18 02/10/25 12:29 Blood Pressure 117/86 H 02/10/25 12:29 Pulse Oximetry (%) 98 02/10/25 12:29 Oxygen Delivery Method Room Air 02/10/25 12:29 Abdominal Pain [facility] Narrative MDM Narrative:: 49-year-old male with history of alcoholic cirrhosis, chronic alcohol use disorder, HFrEF, and polysubstance abuse presents with 3?4 days of abdominal pain, constipation, and nausea. Exam notable for mild abdominal distension, pallor, and epigastric tenderness. Will obtain labs including CBC, CMP, PT INR, amylase, ammonia, alcohol, drug screen, troponin and EKG; as well as order abdomen XR. No significant increase in the troponin. Differential diagnosis: Spontaneous bacterial peritonitis vs. ascites vs. peptic ulcer disease/gastritis vs. constipation vs. hepatic decompensation. Most likely diagnosis given after review of the tests above: Gastritis, Epigastric pain, Elevated troponin I, Lissa Sousa am scribing for and in the presence of Dr. Moreno. Patient data External records reviewed:: [facility] previous records and EMS form Clinical information provided by:: patient and EMS Social determinants that could affect healthcare access:: none Patient has the following chronic illnesses:: alcoholic cirrhosis, chronic alcohol abuse disorder, HFrEF (EF 15?20%), and meth/cocaine abuse How is presenting disease/condition affected by chronic disease/condition?: exacerbated by Evaluation data The following diagnostics were reviewed and interpreted by me:: lab results, radiology exam(s) and EKG tracing(s) (Sinus tachycardia rate of 108 Q wave V1, aVR, notched P wave, poor R wave progression, T wave inversion V1, V6, flattening of the ST segments in V5) Lab and/or radiology exams considered but not ordered:: none Interpretation Summary: See MDM narrative above. RADIOLOGY Procedure(s): XR abdomen series w chest 1V Accession Number(s): [id number] cc: Andrea Henson MD; Mahsa Moreno MD~ Examination: Abdominal series 3 views including upright PA chest Technique: Upright PA chest, AP upright AP supine abdomen 3 views Date and time: February 10, 2025, 1254 hrs. Indications: Mid abdominal pain beginning several days ago. Findings: Moderate enlargement cardiac contour with prominent vascular congestion Mild colonic ileus. No obstruction. No free air Impression: Moderate cardiomegaly with mild heart failure. Nonobstructive bowel gas pattern. Dictated By: Andrea Henson MD Medications / Prescriptions Medications or Prescriptions considered but not ordered:: none Medication administrations:: Medication Administration History Discontinued Medications Al Hydrox/Mg Hydrox/Simethicone (Mg Hyd/Al Hyd/Celine (Maalox Reg) Susp 30 Ml Udc) 30 ml PO X1 ONE Stop: 02/10/25 12:37 Last Admin: 02/10/25 13:23 Dose: 30 ml Documented By: XIOMY Lidocaine HCl (Lidocaine Viscous 2% 15 Ml Udc) 15 ml PO X1 ONE Stop: 02/10/25 12:37 Last Admin: 02/10/25 13:23 Dose: 15 ml Documented By: XIOMY Pantoprazole Sodium (Pantoprazole 40 Mg Tablet) 40 mg PO X1 ONE Stop: 02/10/25 12:38 Last Admin: 02/10/25 13:23 Dose: 40 mg Documented By: XIOMY see above if any Consultations Consultation(s) initiated? (list below): No Diagnosis Differential diagnosis abdominal pain: other (Spontaneous bacterial peritonitis vs. ascites vs. peptic ulcer disease/gastritis vs. constipation vs. hepatic decompensation.) Most likely diagnosis given after review of the tests above:: Gastritis Epigastric pain Elevated troponin Admission Indicated Admission indicated?: not indicated Admission Request Was there a request for admission?: No Disposition Plan Disposition Plan: Discharge Discharge Attestation Discharge Attestation: The patient and all family members were given an opportunity to ask questions and understood the discharge instructions. Discharge instructions specifically effects, indications for sooner follow up or return to the emergency department, and the expected course of current diagnosis. Patient condition: Stable Discharge Plan Plan Patient Disposition: HOME (Self Care) Prescriptions/Referrals Prescriptions/Med Rec: New omeprazole 20 mg capsule,delayed release(DR/EC) 20 mg PO QDAY Qty: 30 0RF No Action carvedilol 3.125 mg Tablet 3.125 mg PO BIDWM 30 Days Qty: 60 1RF dicyclomine 10 mg capsule 10 mg PO BID PRN (Reason: abdominal pain) Qty: 30 0RF prednisone 20 mg tablet See Taper PO BID 27 Days Qty: 54 0RF Taper: Prednisone Taper 20 mg DAILY for 27 Days and 0 Hour budesonide-formoterol 80-4.5 mcg/actuation HFA aerosol inhaler 2 puff inhalation BID Qty: 10.2 2RF Referrals: Justin Millan MD [Primary Care Provider, Family Practice] - In 1 week Problem List Clinical Impression: Epigastric pain, Gastritis, Elevated troponin Patient/Caregiver Discharge Instructions Education Materials: ED Gastritis (Adult) Print Language: German Stand Alone Forms: Shweta Award Info., Patient Portal Info Letter
[2025-02-10 12:39] VITALS: BP 99/81; PULSE 88; RESP 18; O2SAT 100
[2025-02-10 12:48] VITALS: PULSE 108
[2025-02-10 13:07] LABS: Amphetamine/Methamp Scrn,U Negative (Negative); Barbiturate Screen,Urine Negative (Negative); Benzodiazepines Screen,Urine Negative (Negative); Benzoylecgonine Screen, Ur Negative (Negative); Fentanyl Screen,Urine Positive (Negative); Opiate Screen,Urine Negative (Negative); THC Screen,Urine Negative (Negative)
[2025-02-10] MEDS: MG HYD/AL HYD/SIME (Maalox Reg) SUSP 30 ML UDC PO (13:23)
[2025-02-10] MEDS: LIDOCAINE VISCOUS 2% 15 ML UDC PO (13:23)
[2025-02-10] MEDS: PANTOPRAZOLE 40 MG TABLET PO (13:23)
[2025-02-10 13:36] LABS: Basophils # (Auto) 0.1 Thou/mm3 (0.0-0.2); Basophils % (Auto) 2 % (0-2.5); Eosinophils # (Auto) 0.2 Thou/mm3 (0.0-0.5); Eosinophils % (Auto) 2 % (0-10); Hematocrit 44.6 % (41.0-53.0); Hemoglobin 14.3 g/dL (13.5-16.0); Immature Granulocytes Auto 0.02 Thou/mm3 (0.00-0.00); Lymphocytes # (Auto) 3.3 Thou/mm3 (1.0-4.8); Lymphocytes % (Auto) 40 % (10-50); Mean Corpuscular HGB Conc 32.1 g/dl (31.0-37.0); Mean Corpuscular Hemoglobin 29.2 pg (25.0-35.0); Mean Corpuscular Volume 91 fL (80-100); Monocytes # (Auto) 0.9 Thou/mm3 (0.0-0.8); Monocytes % (Auto) 11 % (0-12); Neutrophils # (Auto) 3.8 Thou/mm3 (1.8-7.7); Neutrophils % (Auto) 46 % (37-80); Nucleated Red Blood Cell # 0.00 Thou/mm3 (0.00-0.00); Nucleated Red Blood Cell % 0 /100 WBC (0); Platelet Count 254 Thou/mm3 (140-440); RDW Standard Deviation 52.4 fL (35.1-43.9); Red Blood Count 4.89 Miln/mm3 (4.50-5.90); White Blood Count 8.4 Thou/mm3 (3.8-10.6)
[2025-02-10 13:55] LABS: INR 1.3 (0.9-1.3); Partial Thromboplastin Time 25.8 Seconds (22.0-36.0); Prothrombin Time 13.6 Seconds (9.0-12.2)
[2025-02-10 13:59] LABS: Ammonia 29 uMol/L (11-32)
[2025-02-10 14:02] LABS: Alanine Aminotransferase 62 U/L (10-49); Albumin, Serum 4.3 gm/dL (3.5-5.0); Albumin/Globulin Ratio 1.5 (1.2-2.2); Alcohol, Blood Medical < 3.0 mg/dL (0-10.0); Alkaline Phosphatase 75 U/L (46-116); Amylase 42 U/L (30-118); Anion Gap 12 (7-16); Aspartate Amino Transferase 49 U/L (0-34); B-Type Natriuretic Peptide 2531 pg/mL (0-100); BUN/Creatinine Ratio 12 Ratio (12-20); Bilirubin,Total 1.4 mg/dL (0.3-1.2); Blood Urea Nitrogen 11 mg/dL (9-23); Calcium 9.5 mg/dL (8.3-10.6); Calcium (Corrected) 9.5 mg/dL (8.5-10.1); Carbon Dioxide 20.5 mMol/L (20.0-31.0); Chloride 105 mMol/L (98-107); Creatinine (Component) 0.9 mg/dL (0.6-1.3); Estimated Creatinine Clearance 85.7 mL/min (>60); Globulin 2.9 gm/dL (2.3-3.5); Glucose 95 mg/dL (74-106); Magnesium 2.2 mg/dL (1.6-2.6); Osmolality,Calculated 273 (275-295); Potassium 4.5 mMol/L (3.4-5.1); Sodium 137 mMol/L (136-145); Total Protein 7.2 gm/dL (5.7-8.2); eGFR > 60 See Note
[2025-02-10 14:05] LABS: Troponin I 0.646 ng/mL (0.0-0.045)
[2025-02-10 14:27] VITALS: BP 125/99; PULSE 105; RESP 18; TEMP 36.6; O2SAT 98
[2025-02-10 16:19] LABS: Troponin I 0.664 ng/mL (0.0-0.045)
[2025-02-10 16:36] VITALS: BP 145/99; PULSE 107; RESP 18; TEMP 36.6; O2SAT 98
[2025-02-10 18:08] VITALS: BP 114/97; PULSE 107; RESP 21; TEMP 36.9; O2SAT 97
== END 2025-02-10 18:54 | disposition home or self-care (01) ==
PROVIDERS: Emergency Provider Emergency Medicine; PCP Family Medicine
DX: K29.70 Gastritis, unspecified, without bleeding (principal); K70.30 Alcoholic cirrhosis of liver without ascites; I50.20 Unspecified systolic (congestive) heart failure; R79.89 Other specified abnormal findings of blood chemistry
CPT/HCPCS: 36415; 74022; 80053; 80307; 80320; 82140; 82150; 83735; 83880; 84484; 85025; 85610; 85730; 93005; 99284; J3490; A9270; G0480

== ENCOUNTER 2025-02-25 16:56 | Emergency (ER) | payer MEDICAID, SELFPAY ==
[2025-02-25 16:57] VITALS: BP 101/76; PULSE 103; RESP 18; TEMP 36.7; O2SAT 98; BMI 22.4
[2025-02-25 17:06] VITALS: PULSE 100; RESP 19; O2SAT 100
--- NOTE | 2025-02-25 17:11 | EDNOTE_ITS ---
ED General RME/HPI General Chief complaint: Abdominal Pain Stated complaint: abd pain Time Seen by Provider: 02/25/25 17:10 Arrival date/time: 02/25/25 16:56 CC: Abdominal pain HPI ongoing for the past day and a half, epigastrium in nature states his breast feels hot . Patient states he stopped drinking alcoho l 24 days ago and is currently in a alcohol free facility. Related Data Previous Rx's ?Medication ?Instructions ?Recorded budesonide-formoterol HFA 80 2 puff inhalation BID #10 .2 grams 01/30/25 mcg-4.5 mcg/actuation aerosol inhaler carvedilol 3.125 mg tablet 3.125 mg PO BIDWM 1 month # 60 tabs 01/30/25 dicyclomine 10 mg capsule 10 mg PO BID PRN abdominal p ain 01/30/25 #30 caps prednisone 20 mg tablet See Taper PO BID 27 days #54 tabs 01/30/25 omeprazole 20 mg capsule,delayed 20 mg PO QDAY #30 cap s 02/10/25 release aluminum-mag hydroxide-simethicone 5 ml PO Q3H PRN dys pepsia #200 mL 02/25/25 200 mg-200 mg-20 mg/5 mL oral susp (Maalox Advanced) Allergies Allergy/AdvReac Type Severity Reaction Status Date / Time No Known Allergies Allergy Verified 01/17/25 14:29 Review of Systems Review of Systems Narrative Review of Systems: GEN: No fever, no chills, no weight loss EYES: No discharge, no visual changes, no pain HEENT: No ear pain, no congestion, no sore throat PULM: No shortness of breath, no cough, no congestion CV: No chest pain, no dyspnea on exertion, no palpitations GI: No nausea, no vomiting, no diarrhea, + pain, no constipation : No frequency, no urgency, no dysuria MUSC/SKEL: No joint pain, no back pain SKIN: No rash PSYCH: No hallucinations, no depression HEME/LYMPH: No easy bleeding or bruising tendencies NEURO: No weakness, no headache ED Exam Narrative Physical exam: [General: Not in any acute distress Head normocephalic HEENT: Within acceptable limits Neck is supple nontender Chest equal chest rise nontender to palpation Respiratory: Clear to auscultation no wheezes crackles or rubs CV: Rate rhythm is regular no murmurs rubs or clicks Abdomen is mildly distended, epigastric tenderness. No masses positive bowel sounds all 4 quadrants Back: No CVA tenderness no spinous process tenderness from cervical spine thoracic and lumbar spine Skin: Intact no petechiae rash induration ulceration or crepitus Extremities: Moving all extremity against resistance cap refill less than 2 seconds neurosensory intact Neuro: Awake alert oriented x3 Glascow coma 15 no focal deficits] Course Quality Measures none Orders Category Date Time Status EKG (ED ONLY) *Do not use* NOW Care 02/25/25 17:10 Completed Insert IV NOW Care 02/25/25 19:03 Active EKG (ED Only) Stat Exams 02/25/25 17:10 Ordered Alcohol, Blood Medical Stat Lab 02/25/25 17:15 Completed B-Type Natriuretic Peptide Stat Lab 02/25/25 17:15 Received CBC Stat Lab 02/25/25 17:15 Completed Comprehensive Metabolic Panel Stat Lab 02/25/25 17:15 Completed Drug Screen,Urine Stat Lab 02/25/25 18:20 Received Lipase Stat Lab 02/25/25 17:15 Completed Magnesium Stat Lab 02/25/25 17:15 Completed Partial Thromboplastin Time Stat Lab 02/25/25 17:15 Completed Prothrombin Time with INR Stat Lab 02/25/25 17:15 Completed Urinalysis, C/S if Indicated Stat Lab 02/25/25 18:20 Received mg Hyd/Al Hyd/Celine Susp [Maalox Susp] Med 02/25/25 17:25 Discontinued 30 ml PO X1 ONE Vital Signs Vital signs: Vital Signs Temperature 98.0 F 02/25/25 16:57 Pulse Rate 103 H 02/25/25 16:57 Respiratory Rate 18 02/25/25 16:57 Blood Pressure 101/76 02/25/25 16:57 Pulse Oximetry (%) 98 02/25/25 16:57 Oxygen Delivery Method Room Air 02/25/25 16:57 Discharge Plan Plan Patient Disposition: HOME (Self Care) Patient condition on transfer: Stable Prescriptions/Referrals Prescriptions/Med Rec: New alum-mag hydroxide-simeth [Maalox Advanced] 200-200-20 mg/5 mL suspension 5 ml PO Q3H PRN (Reason: dyspepsia) Qty: 200 0RF No Action carvedilol 3.125 mg Tablet 3.125 mg PO BIDWM 30 Days Qty: 60 1RF dicyclomine 10 mg capsule 10 mg PO BID PRN (Reason: abdominal pain) Qty: 30 0RF prednisone 20 mg tablet See Taper PO BID 27 Days Qty: 54 0RF Taper: Prednisone Taper 20 mg DAILY for 27 Days and 0 Hour budesonide-formoterol 80-4.5 mcg/actuation HFA aerosol inhaler 2 puff inhalation BID Qty: 10.2 2RF omeprazole 20 mg capsule,delayed release(DR/EC) 20 mg PO QDAY Qty: 30 0RF Referrals: Justin Millan MD [Physician, Family Practice] - In 1 week No Primary/Family,Physician [Primary Care Provider] - In 1 week Problem List Clinical Impression: Epigastric pain Patient/Caregiver Discharge Instructions Education Materials: ED Diet, [place] (Adult), ED Epigastric Pain (Uncertain Cause) Print Language: Tamazight Stand Alone Forms: Shweta Award Info., Patient Portal Info Letter, Work/School 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 bili is at 1.8. BNP within acceptable limits. Lipase is at 30. Imaging Imaging interpretation: none Medication Administration(s) none Medication Administration History Discontinued Medications Al Hydrox/Mg Hydrox/Simethicone (Mg Hyd/Al Hyd/Celine (Maalox Reg) Susp 30 Ml Udc) 30 ml PO X1 ONE Stop: 02/25/25 17:26 Last Admin: 02/25/25 17:29 Dose: 30 ml Documented By: RADHA Patient had significant improvement with Maalox. Diagnosis Differential Diagnosis ED Complaint MDM: Dyspepsia GERD pancreatitis
[2025-02-25] MEDS: MG HYD/AL HYD/SIME (Maalox Reg) SUSP 30 ML UDC PO (17:29)
[2025-02-25 17:30] LABS: Basophils # (Auto) 0.1 Thou/mm3 (0.0-0.2); Basophils % (Auto) 1 % (0-2.5); Eosinophils # (Auto) 0.3 Thou/mm3 (0.0-0.5); Eosinophils % (Auto) 3 % (0-10); Hematocrit 47.4 % (41.0-53.0); Hemoglobin 15.8 g/dL (13.5-16.0); Immature Granulocytes Auto 0.03 Thou/mm3 (0.00-0.00); Lymphocytes # (Auto) 4.2 Thou/mm3 (1.0-4.8); Lymphocytes % (Auto) 43 % (10-50); Mean Corpuscular HGB Conc 33.3 g/dl (31.0-37.0); Mean Corpuscular Hemoglobin 29.8 pg (25.0-35.0); Mean Corpuscular Volume 89 fL (80-100); Monocytes # (Auto) 0.9 Thou/mm3 (0.0-0.8); Monocytes % (Auto) 9 % (0-12); Neutrophils # (Auto) 4.1 Thou/mm3 (1.8-7.7); Neutrophils % (Auto) 43 % (37-80); Nucleated Red Blood Cell # 0.00 Thou/mm3 (0.00-0.00); Nucleated Red Blood Cell % 0 /100 WBC (0); Platelet Count 287 Thou/mm3 (140-440); RDW Standard Deviation 51.8 fL (35.1-43.9); Red Blood Count 5.30 Miln/mm3 (4.50-5.90); White Blood Count 9.6 Thou/mm3 (3.8-10.6)
[2025-02-25 17:38] LABS: INR 1.3 (0.9-1.3); Partial Thromboplastin Time 26.3 Seconds (22.0-36.0); Prothrombin Time 13.4 Seconds (9.0-12.2)
[2025-02-25 17:46] LABS: Alanine Aminotransferase 25 U/L (10-49); Albumin, Serum 4.3 gm/dL (3.5-5.0); Albumin/Globulin Ratio 1.7 (1.2-2.2); Alcohol, Blood Medical < 10.0 mg/dL (0-10.0); Alkaline Phosphatase 69 U/L (46-116); Anion Gap 11 (7-16); Aspartate Amino Transferase 28 U/L (0-34); BUN/Creatinine Ratio 18 Ratio (12-20); Bilirubin,Total 1.8 mg/dL (0.3-1.2); Blood Urea Nitrogen 20 mg/dL (9-23); Calcium 9.6 mg/dL (8.3-10.6); Calcium (Corrected) 9.6 mg/dL (8.5-10.1); Carbon Dioxide 20.7 mMol/L (20.0-31.0); Chloride 105 mMol/L (98-107); Creatinine (Component) 1.1 mg/dL (0.6-1.3); Estimated Creatinine Clearance 80.4 mL/min (>60); Globulin 2.6 gm/dL (2.3-3.5); Glucose 95 mg/dL (74-106); Lipase 30 U/L (12-53); Magnesium 2.0 mg/dL (1.6-2.6); Osmolality,Calculated 276 (275-295); Potassium 4.4 mMol/L (3.4-5.1); Sodium 137 mMol/L (136-145); Total Protein 6.9 gm/dL (5.7-8.2); eGFR > 60 See Note
[2025-02-25 18:05] VITALS: BP 122/93; PULSE 98; RESP 18; TEMP 36.7; O2SAT 98
[2025-02-25 18:45] LABS: Collection Type, Urine Clean Catch
[2025-02-25 18:58] LABS: Bilirubin,Urine Negative (Negative); Blood,Urine Negative (Negative); Clarity,Urine Clear (Clear/Hazy); Color,Urine Yellow (Lt Yel-Yel); Culture Indicated,Urine Not Indicated; Glucose, Urine Negative (Negative); Hyaline Casts,Urine < 1 /hpf (0-1); Ketones,Urine Negative (Negative); Leukocyte Esterase,Urine Negative (Negative); Nitrite,Urine Negative (Negative); PH,Urine 5.5 (5.0-7.0); Protein,Urine Negative (Neg - Trace); RBC,Urine 1 /hpf (0-3); Specific Gravity,Urine 1.018 (1.001-1.035); Squamous Epithelial Cell,Urine < 1 /hpf (0-5); Urobilinogen,Urine Negative mg/dL (0.0-1.0); WBC,Urine 3 /hpf (0-5)
[2025-02-25 19:04] LABS: Amphetamine/Methamp Scrn,U Negative (Negative); Barbiturate Screen,Urine Negative (Negative); Benzodiazepines Screen,Urine Negative (Negative); Benzoylecgonine Screen, Ur Negative (Negative); Fentanyl Screen,Urine Negative (Negative); Opiate Screen,Urine Negative (Negative); THC Screen,Urine Negative (Negative)
[2025-02-25 19:13] VITALS: BP 118/88; PULSE 78; RESP 16; TEMP 36.7; O2SAT 99
[2025-02-25 20:07] LABS: B-Type Natriuretic Peptide 3092 pg/mL (0-100)
== END 2025-02-25 19:14 | disposition home or self-care (01) ==
PROVIDERS: Registered Nurse General Practice; Emergency Provider Family Medicine
DX: R10.13 Epigastric pain (principal)
CPT/HCPCS: 36415; 80053; 80307; 80320; 81001; 83690; 83735; 83880; 85025; 85610; 85730; 93005; 99284; A9270; G0480

== ENCOUNTER 2025-03-01 03:25 | Emergency (ER) | payer MEDICAID, SELFPAY ==
[2025-03-01] VITALS (8 sets, daily range): BP systolic 107–150; BP diastolic 73–99; PULSE 81–108; RESP 16–23; TEMP 36.3–36.8; O2SAT 95–100; BMI 33.3
--- NOTE | 2025-03-01 05:03 | XR_ITS ---
Examination: AP chest single view Technique one AP portable upright chest single view Date and time: March 01, 2025, 0509 hrs., Comparison 02/10/2025 Indications: Shortness of breath coughing today. Findings: Moderate enlargement cardiac contour Mild to moderate vascular congestion. Suspicious for early septal edema at the lung bases Subsegmental atelectasis right base Impression: Mild heart failure pattern
--- NOTE | 2025-03-01 05:13 | EDNOTE_ITS ---
ED Abdominal Pain RME/HPI General Chief Complaint: Abdominal Pain Stated complaint: ABD PAIN Time seen by provider: 03/01/25 03:35 Arrival date/time: 03/01/25 03:25 Source: patient Limitations: no limitations RME / HPI RME / HPI narrative: DR. JAMISON MAIN ED EVALUATION: 49-year-old male with a history of alcoholic cirrhosis, chronic alcohol abuse disorder, HFrEF (EF 15?20%), and meth/cocaine presents to the emergency department with feeling that my lungs have fluid in them patient has a nonproductive cough for the last 2 to 3 days. Patient not complaining of abdominal pain, no vomiting blood. And no blood in his stool. Related Data Previous Rx's ?Medication ?Instructions ?Recorded budesonide-formoterol HFA 80 2 puff inhalation BID #10 .2 grams 01/30/25 mcg-4.5 mcg/actuation aerosol inhaler carvedilol 3.125 mg tablet 3.125 mg PO BIDWM 1 month # 60 tabs 01/30/25 dicyclomine 10 mg capsule 10 mg PO BID PRN abdominal p ain 01/30/25 #30 caps omeprazole 20 mg capsule,delayed 20 mg PO QDAY #30 cap s 02/10/25 release aluminum-mag hydroxide-simethicone 5 ml PO Q3H PRN dys pepsia #200 mL 02/25/25 200 mg-200 mg-20 mg/5 mL oral susp (Maalox Advanced) Allergies Allergy/AdvReac Type Severity Reaction Status Date / Time No Known Allergies Allergy Verified 03/01/25 03:39 Review of Systems Review of Systems Systems Reviewed: All systems reviewed, normal except as documented Constitutional Constitutional: Reports system reviewed and no additional complaints, except as documented and Denies fever(s) Eyes Eyes: Reports system reviewed and no additional complaints, except as documented ENT Ears, Nose, Mouth, and Throat: Reports system reviewed and no additional complaints, except as documented Gastrointestinal Gastrointestinal: Reports system reviewed and no additional complaints, except as documented, Denies abdominal pain, Denies nausea and Denies vomiting Genitourinary Genitourinary: Reports system reviewed and no additional complaints, except as documented and Denies dysuria Musculoskeletal Musculoskeletal: Reports system reviewed and no additional complaints, except as documented, Denies abnormal gait and Denies arthralgias Integumentary/Breasts Skin/Breast: Reports system reviewed and no additional complaints, except as documented and Denies rash Neurologic Neurologic: Reports system reviewed and no additional complaints, except as documented and Denies abnormal gait Psychiatric Psychiatric: Reports system reviewed and no additional complaints, except as documented Past Medical History Past Medical History NEUROLOGIC: Negative Neurological Disorders or Seizures CARDIAC: Positive Cardiac Disorders and Congestive Heart Failure RESPIRATORY: Positive Pulmonary Embolism GASTROINTESTINAL: Positive Cirrhosis GENITOURINARY: Negative Genitourinary Disorders or Renal Disease MUSCULOSKELETAL: Negative Musculoskeletal Disorders ENDOCRINE: Negative Endocrine Disorders, Diabetes Mellitus Type 1 or Diabetes Mellitus Type 2 HEMATOLOGIC: Negative Blood Disorders or Sickle Cell Disease PSYCHO/SOCIAL: Positive Recreational Drug Use, Depression and Anxiety OTHER HISTORY: Positive Blood Transfusions Family History FAMILY HISTORY: Positive Family Cardiac Disorders Social History SMOKING STATUS: Former smoker SUBSTANCE USE: does not use ED Exam Narrative Physical exam: GENERAL APPEARANCE: alert and oriented x 4, well-developed, well-nourished, no acute distress, mild pallor? VITALS: All vitals were reviewed and the pulse ox is 98% on room air, which is normal according to my interpretation. HEENT: Normocephalic, atraumatic; pupils equal, round, reactive to light; NECK: Supple LUNGS: Decreased breath sounds at the bases. No wheezing. HEART: Regular rate, regular rhythm; normal S1, S2; no murmurs ABDOMEN: Mild distended abdomen; normal BS; no tenderness to palpation. EXTREMITIES: atraumatic; no pedal edema NEUROLOGIC: awake; alert and oriented x4; cranial nerves II-XII grossly intact; no focal sensory or motor deficits General Limitations: Present no limitations General appearance: Present other (lying in emergency gurney) Course Quality Measures none Orders Category Date Time Status Bedside COVID-19 Antigen Test NOW Care 03/01/25 04:00 Active Bedside Influenza A&B Antigen Test NOW Care 03/01/25 04:00 Completed IV [Insert IV] STAT Care 03/01/25 05:09 Active CXRP [XR chest 1V portable] Stat Exams 03/01/25 05:03 Ordered BNP [B-Type Natriuretic Peptide] Stat Lab 03/01/25 05:04 Ordered CBC Stat Lab 03/01/25 05:03 Ordered CMP [Comprehensive Metabolic Panel] Stat Lab 03/01/25 05:03 Ordered Lipase Stat Lab 03/01/25 05:03 Ordered Troponin I Stat Lab 03/01/25 05:03 Ordered Albuterol/Ipratr Rt Mervat [Duoneb Rt Mervat] Med 03/01/25 05:08 Discontinued 3 ml INH X1 ONE Reevaluation(s) Reevaluation #1: Breathing treatment is ordered. Pending Time: 05:17 Vital Signs Vital signs: Vital Signs Temperature 97.4 F 03/01/25 03:27 Pulse Rate 103 H 03/01/25 03:27 Respiratory Rate 19 03/01/25 03:27 Blood Pressure 150/91 H 03/01/25 03:27 Pulse Oximetry (%) 99 03/01/25 03:27 Oxygen Delivery Method Room Air 03/01/25 03:27 Abdominal Pain MDM MDM Narrative MDM Narrative:: 49-year-old male with history of alcoholic cirrhosis, chronic alcohol use disorder, HFrEF, and polysubstance abuse presents with dry cough x 2 to 3 days. Will obtain labs including CBC, CMP, PT INR, amylase, ammonia, alcohol, drug screen, troponin and EKG; as well as order CXR. Differential diagnosis: CHF, pneumonia, peptic ulcer disease, coronary artery disease Patient data External records reviewed:: [facility] previous records Clinical information provided by:: patient Social determinants that could affect healthcare access:: none Patient has the following chronic illnesses:: alcoholic cirrhosis, chronic alcohol abuse disorder, HFrEF (EF 15?20%), and meth/cocaine abuse How is presenting disease/condition affected by chronic disease/condition?: exacerbated by Evaluation data The following diagnostics were reviewed and interpreted by me:: other (specify) (Pending all labs and final disposition) Lab and/or radiology exams considered but not ordered:: none Interpretation Summary: Pending all labs and final disposition Medications / Prescriptions Medications or Prescriptions considered but not ordered:: none Medication administrations:: Medication Administration History Discontinued Medications Albuterol/Ipratropium (Albuterol/Ipratropium (Duoneb) Rt Mervat 3 Ml Nebu) 3 ml INH X1 ONE Stop: 03/01/25 05:09 see above if any Consultations Consultation(s) initiated? (list below): No Diagnosis Differential diagnosis abdominal pain: other (Spontaneous bacterial peritonitis vs. ascites vs. peptic ulcer disease/gastritis vs. constipation vs. hepatic decompensation.) Most likely diagnosis given after review of the tests above:: Pending all labs and reevaluation. Admission Indicated Admission indicated?: not indicated Explain why admission is indicated or not indicated:: Pending all labs and reevaluation Admission Request Was there a request for admission?: No Disposition Plan Disposition Plan: other (specify) (Patient signed out to Dr. Ash 0 600 pending all labs and final disposition.) Discharge Plan Prescriptions/Referrals Prescriptions/Med Rec: No Action carvedilol 3.125 mg Tablet 3.125 mg PO BIDWM 30 Days Qty: 60 1RF dicyclomine 10 mg capsule 10 mg PO BID PRN (Reason: abdominal pain) Qty: 30 0RF budesonide-formoterol 80-4.5 mcg/actuation HFA aerosol inhaler 2 puff inhalation BID Qty: 10.2 2RF omeprazole 20 mg capsule,delayed release(DR/EC) 20 mg PO QDAY Qty: 30 0RF alum-mag hydroxide-simeth [Maalox Advanced] 200-200-20 mg/5 mL suspension 5 ml PO Q3H PRN (Reason: dyspepsia) Qty: 200 0RF Referrals: No Primary/Family,Physician [Primary Care Provider] - In 1 week Problem List Clinical Impression: Cough Patient/Caregiver Discharge Instructions Print Language: Rwandan
[2025-03-01] MEDS: ALBUTEROL/IPRATROPIUM (Duoneb) RT SOL 3 ML NEBU INH (05:23)
[2025-03-01] MEDS: MORPHINE SULF INJ 4 MG/ML VIAL 2 MG IVP (05:35)
[2025-03-01 06:14] LABS: Basophils # (Auto) 0.1 Thou/mm3 (0.0-0.2); Basophils % (Auto) 1 % (0-2.5); Eosinophils # (Auto) 0.2 Thou/mm3 (0.0-0.5); Eosinophils % (Auto) 2 % (0-10); Hematocrit 44.6 % (41.0-53.0); Hemoglobin 14.6 g/dL (13.5-16.0); Immature Granulocytes Auto 0.03 Thou/mm3 (0.00-0.00); Lymphocytes # (Auto) 2.4 Thou/mm3 (1.0-4.8); Lymphocytes % (Auto) 27 % (10-50); Mean Corpuscular HGB Conc 32.7 g/dl (31.0-37.0); Mean Corpuscular Hemoglobin 29.7 pg (25.0-35.0); Mean Corpuscular Volume 91 fL (80-100); Monocytes # (Auto) 0.9 Thou/mm3 (0.0-0.8); Monocytes % (Auto) 10 % (0-12); Neutrophils # (Auto) 5.3 Thou/mm3 (1.8-7.7); Neutrophils % (Auto) 61 % (37-80); Nucleated Red Blood Cell # 0.00 Thou/mm3 (0.00-0.00); Nucleated Red Blood Cell % 0 /100 WBC (0); Platelet Count 237 Thou/mm3 (140-440); RDW Standard Deviation 52.8 fL (35.1-43.9); Red Blood Count 4.92 Miln/mm3 (4.50-5.90); White Blood Count 8.8 Thou/mm3 (3.8-10.6)
--- NOTE | 2025-03-01 06:15 | PD.EDADDENDU ---
Emergency Room Addendum Addendum Narrative: 0600hrs: Received signout from Dr. Urbina. I will assume the care of the patient at this time and will follow the patient, pending placement. Please refer to the emergency department record for history and examination from initial visit. The following addendum documentation note is intended to reflect any pending information, findings, or radiology results not included in the patient?s initial chart. 0840h: Pt is a 49y/o M here for eval cough ongoing the past couple of days. Has past medical history of liver cirrhosis, and heart failure. Is on furosemide 40 mg daily, carvedilol 3.125 mg twice daily, spironolactone 50 mg daily, omeprazole 40 mg daily, sucralfate 1 g twice daily. Workup today shows normal white blood cell count, stable CMP with normal creatinine, normal inflammatory markers. BNP is noted to be elevated, similar to previous. Does have mild pulmonary edema on chest x-ray with no other acute findings noted. Sats are mid to low 90s on room air. Will give additional dose of Lasix IV at this time. The dry cough patient has may possibly be secondary to the pulmonary edema versus viral URI ongoing the last couple of days. Will advise on increased Lasix for the next few days as well as as needed cough medication for home. Patient is also noting that he has epigastric abdominal discomfort that is worse after eating. Does have a history of GI issues and is on sucralfate and omeprazole for same. Would consider adding as needed Pepcid as well as increasing the sucralfate to 4 times daily, and advising on a bland diet for the next week. Have advised outpatient follow-up with PCP. Stable for discharge. Return precautions advised. Laboratory Results WBC 8.8 Thou/mm3 (3.8-10.6) 03/01/25 05:50 RBC 4.92 Miln/mm3 (4.50-5.90) 03/01/25 05:50 Hgb 14.6 g/dL (13.5-16.0) 03/01/25 05:50 Hct 44.6 % (41.0-53.0) 03/01/25 05:50 MCV 91 fL (80-100) 03/01/25 05:50 MCH 29.7 pg (25.0-35.0) 03/01/25 05:50 MCHC 32.7 g/dl (31.0-37.0) 03/01/25 05:50 RDW Std Deviation 52.8 fL (35.1-43.9) H 03/01/25 05:50 Plt Count 237 Thou/mm3 (140-440) D 03/01/25 05:50 Neut % (Auto) 61 % (37-80) 03/01/25 05:50 Lymph % (Auto) 27 % (10-50) 03/01/25 05:50 [place] % (Auto) 10 % (0-12) 03/01/25 05:50 Eos % (Auto) 2 % (0-10) 03/01/25 05:50 Baso % (Auto) 1 % (0-2.5) 03/01/25 05:50 Neut # (Auto) 5.3 Thou/mm3 (1.8-7.7) 03/01/25 05:50 Lymph # (Auto) 2.4 Thou/mm3 (1.0-4.8) 03/01/25 05:50 [place] # (Auto) 0.9 Thou/mm3 (0.0-0.8) H 03/01/25 05:50 Eos # (Auto) 0.2 Thou/mm3 (0.0-0.5) 03/01/25 05:50 Baso # (Auto) 0.1 Thou/mm3 (0.0-0.2) 03/01/25 05:50 Immature Gran # (Auto) 0.03 Thou/mm3 (0.00-0.00) H 03/01/25 05:50 Absolute Nucleated RBC 0.00 Thou/mm3 (0.00-0.00) 03/01/25 05:50 Immature Gran % 0 % (0-0) 03/01/25 05:50 Nucleated RBC % 0 /100 WBC (0) 03/01/25 05:50 Sodium 141 mMol/L (136-145) 03/01/25 05:50 Potassium 4.3 mMol/L (3.4-5.1) 03/01/25 05:50 Chloride 106 mMol/L (98-107) 03/01/25 05:50 Carbon Dioxide 22.9 mMol/L (20.0-31.0) 03/01/25 05:50 Anion Gap 12 (7-16) 03/01/25 05:50 BUN 19 mg/dL (9-23) 03/01/25 05:50 Creatinine 1.1 mg/dL (0.6-1.3) 03/01/25 05:50 Estim Creat Clear Calc 97.6 mL/min (>60) 03/01/25 05:50 eGFR > 60 See Note (60-) 03/01/25 05:50 BUN/Creatinine Ratio 17 Ratio (12-20) 03/01/25 05:50 Glucose 94 mg/dL (74-106) 03/01/25 05:50 Calculated Osmolality 283 (275-295) 03/01/25 05:50 Calcium 9.2 mg/dL (8.3-10.6) 03/01/25 05:50 Corrected Calcium 9.2 mg/dL (8.5-10.1) 03/01/25 05:50 Total Bilirubin 1.5 mg/dL (0.3-1.2) H 03/01/25 05:50 AST 25 U/L (0-34) 03/01/25 05:50 ALT 18 U/L (10-49) 03/01/25 05:50 Alkaline Phosphatase 63 U/L (46-116) 03/01/25 05:50 Troponin I 0.279 ng/mL (0.0-0.045) H* 03/01/25 05:50 C-Reactive Prot, Quant < 0.5 mg/dL (0.0-0.9) 03/01/25 05:50 B-Natriuretic Peptide 2503 pg/mL (0-100) H* 03/01/25 05:50 Total Protein 6.7 gm/dL (5.7-8.2) 03/01/25 05:50 Albumin 4.2 gm/dL (3.5-5.0) 03/01/25 05:50 Globulin 2.5 gm/dL (2.3-3.5) 03/01/25 05:50 Albumin/Globulin Ratio 1.7 (1.2-2.2) 03/01/25 05:50 Lipase 29 U/L (12-53) 03/01/25 05:50 Procalcitonin 0.09 ng/ml (0.0-0.49) 03/01/25 05:50 Urine Opiates Screen Positive (Negative) A 03/01/25 05:50 Urine Fentanyl Screen Negative (Negative) 03/01/25 05:50 Ur Barbiturates Screen Negative (Negative) 03/01/25 05:50 U Amphetamin/Meth Scrn Negative (Negative) 03/01/25 05:50 U Benzodiazepines Scrn Negative (Negative) 03/01/25 05:50 U Cocaine Metab Screen Negative (Negative) 03/01/25 05:50 U Marijuana (THC) Screen Negative (Negative) 03/01/25 05:50 CXR: Moderate enlargement cardiac contour Mild to moderate vascular congestion. Suspicious for early septal edema at the lung bases Subsegmental atelectasis right base Impression: Mild heart failure pattern Diagnosis: Mild pulmonary edema, history of CHF, likely viral URI, cough. Disposition: Discharge home Follow-up: PCP within the next week.
[2025-03-01 06:24] LABS: Amphetamine/Methamp Scrn,U Negative (Negative); Barbiturate Screen,Urine Negative (Negative); Benzodiazepines Screen,Urine Negative (Negative); Benzoylecgonine Screen, Ur Negative (Negative); Fentanyl Screen,Urine Negative (Negative); Opiate Screen,Urine Positive (Negative); THC Screen,Urine Negative (Negative)
[2025-03-01 06:31] LABS: Alanine Aminotransferase 18 U/L (10-49); Albumin, Serum 4.2 gm/dL (3.5-5.0); Albumin/Globulin Ratio 1.7 (1.2-2.2); Alkaline Phosphatase 63 U/L (46-116); Anion Gap 12 (7-16); Aspartate Amino Transferase 25 U/L (0-34); BUN/Creatinine Ratio 17 Ratio (12-20); Bilirubin,Total 1.5 mg/dL (0.3-1.2); Blood Urea Nitrogen 19 mg/dL (9-23); Calcium 9.2 mg/dL (8.3-10.6); Calcium (Corrected) 9.2 mg/dL (8.5-10.1); Carbon Dioxide 22.9 mMol/L (20.0-31.0); Chloride 106 mMol/L (98-107); Creatinine (Component) 1.1 mg/dL (0.6-1.3); Estimated Creatinine Clearance 97.6 mL/min (>60); Globulin 2.5 gm/dL (2.3-3.5); Glucose 94 mg/dL (74-106); Lipase 29 U/L (12-53); Osmolality,Calculated 283 (275-295); Potassium 4.3 mMol/L (3.4-5.1); Sodium 141 mMol/L (136-145); Total Protein 6.7 gm/dL (5.7-8.2); eGFR > 60 See Note
[2025-03-01 06:33] LABS: B-Type Natriuretic Peptide 2503 pg/mL (0-100)
[2025-03-01 06:36] LABS: Troponin I 0.279 ng/mL (0.0-0.045)
--- NOTE | 2025-03-01 06:36 | EKG_ITS ---
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
[2025-03-01] MEDS: PROMETHAZINE/DM SYRUP 5 ML DOSE 10 ML PO (06:40)
[2025-03-01 07:41] LABS: C-Reactive Protein < 0.5 mg/dL (0.0-0.9); Procalcitonin 0.09 ng/ml (0.0-0.49)
[2025-03-01] MEDS: FUROSEMIDE INJ 10 MG/ML 4ML VIAL 80 MG IVP (08:22)
[2025-03-01] MEDS: FAMOTIDINE 20 MG TABLET 40 MG PO (09:35)
[2025-03-01] MEDS: MG HYD/AL HYD/SIME (Maalox Reg) SUSP 30 ML UDC PO (09:36)
== END 2025-03-01 09:50 | disposition home or self-care (01) ==
PROVIDERS: Emergency Medicine; Emergency Provider Family Medicine
DX: R05.9 Cough, unspecified (principal); I50.22 Chronic systolic (congestive) heart failure; K70.30 Alcoholic cirrhosis of liver without ascites; F10.10 Alcohol abuse, uncomplicated; F19.10 Other psychoactive substance abuse, uncomplicated
CPT/HCPCS: 36415; 71045; 80053; 80307; 83690; 83880; 84145; 84484; 85025; 86140; 87400; 87811; 93005; 94640; 96374; 96375; 99284; A9270; J1938; J2270